=== PATIENT | female | born 1955 | race Caucasian/White ===

== ENCOUNTER 2020-01-30 12:54 | Outpatient (CLI) | payer OTHER, SELFPAY ==
[2020-01-30 13:22] LABS: Basophils Percent Auto 0.7 % (0.2-1.2); Eosinophils Absolute Auto 0.1 K/mm3 (0-0.3); Hematocrit 38.4 % (37.0-47.0); Hemoglobin 12.9 g/dL (12.0-15.0); Immature Granulocyte Absolute 0.04 K/mm3 (0.00-0.031); Immature Granulocyte Percent A 0.7 % (0-0.5); Lymphocytes Absolute Auto 1.63 K/mm3 (0.9-3.2); Lymphocytes Percent Auto 27.3 % (18.3-44.2); Mean Corpuscular HGB Conc 33.6 g/dl (32-36); Mean Corpuscular Hemoglobin 29.1 pg (26-34); Mean Corpuscular Volume 86.7 fl (80-100); Mean Platelet Volume 9.4 fl (7.4-10.4); Monocytes Absolute Auto 0.5 K/mm3 (0.1-0.6); Monocytes Percent Auto 8.7 % (2.6-8.5); Neutrophils Absolute Auto 3.6 K/mm3 (1.3-6.7); Neutrophils Percent Auto 60.6 % (45.5-73.1); Platelet Count Result 311 k/mm3 (150-375); Red Blood Count 4.43 M/mm3 (4.2-5.4); Red Cell Distribution Width 12.1 % (11.5-14.5)
[2020-01-30 13:42] LABS: Alanine Aminotransferase 30 U/L (4-35); Albumin Level 4.3 g/dL (3.5-5.1); Alkaline Phosphatase 84 U/L (38-126); Aspartate Amino Transferase 31 U/L (14-36); Bilirubin,Total 0.4 mg/dL (0.2-1.3); Blood Urea Nitrogen 11 mg/dL (7-17); Calcium 9.1 mg/dL (8.4-10.2); Carbon Dioxide 29 mmol/L (22-30); Chloride 105 mmol/L (98-107); Estimated Glomerular Filt Rate > 60; Glucose 96 mg/dL (65-105); Potassium 3.8 mmol/L (3.4-5.0); Sodium 140 mmol/L (137-145)
[2020-01-30 14:04] LABS: Free T4 Free Thyroxine 0.88 ng/mL (0.78-2.19)
[2020-01-30 14:12] LABS: Thyroid Stimulating Hormone 0.695 uIU/mL (0.465-4.680)
== END 2020-01-30 12:55 | disposition home or self-care (01) ==
PROVIDERS: PCP Internal Medicine; Visit Provider Internal Medicine
DX: E78.00 Pure hypercholesterolemia, unspecified (principal)
CPT/HCPCS: 36415; 80053; 82607; 83735; 84439; 84443; 85025

== ENCOUNTER 2020-04-11 13:45 | Outpatient (CLI) | payer OTHER, SELFPAY ==
--- NOTE | ~2020-04-11 | US_ITS ---
EXAMINATION: US soft tissue chest INDICATION: Patient with history of bilateral mastectomy presents for six-month follow-up for probabl y benign chest wall masses TECHNIQUE: High-resolution bilateral ultrasound of the chest wall is performed. COMPARISON: 07/19/2019, 01/31/2019, 01/20/2018 FINDINGS: Right chest wall: There is a stable 2 mm round hypoechoic circumscribed mass at the 5:00 location wit h no internal vascularity or posterior features. No suspicious cystic or solid mass is identified. Left chest wall: Previously described small hypoechoic masses measuring up to 3 mm in the right chest wall are stable or have resolved. No suspicious cystic or solid mass is identified. IMPRESSION: 1. No sonographic evidence of malignancy. Routine clinical follow-up is recommended. BI-RADS Category 2: Benign finding(s). Reviewed, dictated and finalized at location A. IMPRESSION: 1. No sonographic evidence of malignancy. Routine clinical follow-up is recomme nded. BI-RADS Category 2: Benign finding(s).
--- NOTE | ~2020-04-11 | DEXA_ITS ---
Bone Density Report Name: Gillian Smith Age: 65 Sex: Female Ethnicity: White Date of : 1955 Indication: postmenopausal; inflammatory bowel disease; cancer; hysterectomy; Referring Provider: GIO PARMAR Study: Bone densitometry was performed. Exam Date: April 11, 2020 Accession number: [id number] Bone Density: Region BMD T-score Z-score Classification AP Spine (L1-L4) 1.083 0.3 2.2 Normal Femoral Neck (Left) 0.750 -0.9 0.7 Normal Total Hip (Left) 0.937 0.0 1.3 Normal Total Hip Bilateral Avg 0.947 0.1 1.4 Normal Femoral Neck (Right) 0.723 -1.1 0.5 Osteopenia Total Hip (Right) 0.956 0.1 1.5 Normal World Health Organization criteria for BMD impression classify patients as: Normal (T-score at or above -1.0), Osteopenia (T-score between -1.0 and -2.5), or Osteoporosis (T-score at or below -2.5). 10-year Fracture Risk(1): Major Osteoporotic Fracture 8.3% Hip Fracture 0.7% Reported Risk Factors: [place] (), Neck BMD=0.723, BMI=29.9 (1) FRAX(R) Version 3.08. Fracture probability calculated for an untreated patient. Fracture probability may be lower if the patient has received treatment. Previous Exams: Region Exam Age BMD T-score BMD Change BMD Change Date g/cm2 vs Baseline vs Previous AP Spine(L1-L4) 04/11/2020 65 1.083 0.3 -0.227(-17.3%) 0.026(2.5%)* 12/06/2016 61 1.057 0.1 -0.253(-19.3%) 0.006(0.6%)# 08/16/2012 57 1.051 0.0 -0.259(-19.8%) -0.108(-9.3%)# 12/10/2009 54 1.159 1.0 -0.152(-11.6%) -0.053(-4.4%)* 10/05/2006 51 1.212 1.5 -0.098(-7.5%)* -0.098(-7.5%)* 12/22/2002 47 1.310 2.4 Total Hip(Left) 04/11/2020 65 0.937 0.0 -0.108(-10.4%) -0.019(-2.0%) 12/06/2016 61 0.957 0.1 -0.089(-8.5%)# 0.076(8.7%)# 08/16/2012 57 0.881 -0.5 -0.165(-15.8%) -0.075(-7.8%)# 12/10/2009 54 0.955 0.1 -0.090(-8.6%)* -0.057(-5.6%)* 10/05/2006 51 1.013 0.6 -0.033(-3.2%)* -0.033(-3.2%)* 12/22/2002 47 1.046 0.9 Total Hip(Right) 04/11/2020 65 0.956 0.1 -0.078(-7.5%)# -0.020(-2.0%) 12/06/2016 61 0.976 0.3 -0.058(-5.6%)# 0.006(0.6%)# 08/16/2012 57 0.970 0.2 -0.064(-6.2%)# -0.003(-0.3%)# 12/10/2009 54 0.973 0.3 -0.062(-6.0%)* -0.008(-0.8%) 10/05/2006 51 0.981 0.3 -0.053(-5.2%)* -0.053(-5.2%)* 12/22/2002 47 1.034 0.8 *Denotes significance at 95% confidence level, LSC for AP Spine = 0.022 g/cm2, LSC for Total Hip = 0.027 g/cm2 Clinical Information Provided by Patient:
== END 2020-04-11 13:46 | disposition home or self-care (01) ==
LOC: ANHIMG 13:47
PROVIDERS: PCP Internal Medicine; Visit Provider Obstetrics & Gynecology
DX: Z78.0 Asymptomatic menopausal state (principal); Z85.3 Personal history of malignant neoplasm of breast; M85.851 Other specified disorders of bone density and structure, right thigh
CPT/HCPCS: 76604; 77080

== ENCOUNTER 2020-07-25 07:14 | Outpatient (CLI) | payer OTHER, SELFPAY ==
[2020-07-25 07:45] LABS: Basophils Percent Auto 0.7 % (0.2-1.2); Eosinophils Absolute Auto 0.1 K/mm3 (0-0.3); Eosinophils Percent Auto 2.5 % (0-4.4); Hematocrit 38.3 % (37.0-47.0); Hemoglobin 12.9 g/dL (12.0-15.0); Immature Granulocyte Absolute 0.04 K/mm3 (0.00-0.031); Immature Granulocyte Percent A 0.7 % (0-0.5); Lymphocytes Absolute Auto 1.49 K/mm3 (0.9-3.2); Mean Corpuscular HGB Conc 33.7 g/dl (32-36); Mean Corpuscular Hemoglobin 29.3 pg (26-34); Mean Corpuscular Volume 86.8 fl (80-100); Mean Platelet Volume 9.3 fl (7.4-10.4); Monocytes Absolute Auto 0.5 K/mm3 (0.1-0.6); Monocytes Percent Auto 9.4 % (2.6-8.5); Neutrophils Absolute Auto 3.3 K/mm3 (1.3-6.7); Neutrophils Percent Auto 59.7 % (45.5-73.1); Platelet Count Result 267 k/mm3 (150-375); Red Blood Count 4.41 M/mm3 (4.2-5.4); Red Cell Distribution Width 12.3 % (11.5-14.5); White Blood Count 5.5 K/mm3 (4.5-10.0)
[2020-07-25 07:59] LABS: Alanine Aminotransferase 28 U/L (4-35); Alkaline Phosphatase 65 U/L (38-126); Anion Gap 7 mmol/L (8-16); Aspartate Amino Transferase 32 U/L (14-36); Bilirubin,Total 0.8 mg/dL (0.2-1.3); Blood Urea Nitrogen 11 mg/dL (7-17); Calcium 9.2 mg/dL (8.4-10.2); Carbon Dioxide 30 mmol/L (22-30); Chloride 102 mmol/L (98-107); Cholesterol 177 mg/dL (0-200); Estimated Glomerular Filt Rate > 60; Glucose 105 mg/dL (65-105); HDL Direct 36 mg/dL; Magnesium 2.2 mg/dL (1.6-2.3); Potassium 3.8 mmol/L (3.4-5.0); Sodium 139 mmol/L (137-145); Triglycerides 322 mg/dL (<150)
[2020-07-25 08:09] LABS: LDL Cholesterol Direct 100 mg/dL
[2020-07-25 09:28] LABS: Thyroid Stimulating Hormone 0.232 uIU/mL (0.465-4.680)
[2020-07-25 09:30] LABS: Free T4 Free Thyroxine 0.82 ng/mL (0.78-2.19)
== END 2020-07-25 07:15 | disposition home or self-care (01) ==
PROVIDERS: PCP Internal Medicine; Visit Provider Internal Medicine
DX: E78.00 Pure hypercholesterolemia, unspecified (principal); K21.9 Gastro-esophageal reflux disease without esophagitis
CPT/HCPCS: 36415; 80053; 80061; 82607; 83735; 84439; 84443; 85025

== ENCOUNTER 2020-09-01 00:17 | Outpatient (CLI) | payer OTHER, SELFPAY ==
[2020-09-01 20:45] LABS: SARS-CoV-2 RNA PCR Negative
== END 2020-09-01 00:18 | disposition home or self-care (01) ==
LOC: ANHCOVIDDT 00:17
PROVIDERS: PCP Internal Medicine; Visit Provider Internal Medicine Gastroenterology
DX: Z01.812 Encounter for preprocedural laboratory examination (principal); Z11.59 Encounter for screening for other viral diseases
CPT/HCPCS: 87635; C9803; U0003

== ENCOUNTER 2020-09-04 01:33 | Day surgery (SDC) | payer OTHER, SELFPAY ==
[2020-08-25 13:38] VITALS: BMI 27.6
[2020-09-04] MEDS: LACTATED RINGERS 1,000 ML 150 ML IV CONT (08:26)
[2020-09-04 08:31] VITALS: BP 145/66; PULSE 81; RESP 18; TEMP 36.5; O2SAT 98; BMI 28.6
--- NOTE | 2020-09-04 08:45 | WPDGICN ---
Assessment and Plan Assessment and plan (1) History of colon polyps: Code(s): Z86.010 - Personal history of colonic polyps Status: Acute Assessment and Plan: Patient has a distant history of colon polyps. Most recent exam was 5 years ago. Follow-up colonoscopy is been suggested. Plan is for surveillance colonoscopy at this time. Further recommendations will be given after endoscopy. GI Consult Note Consult date/time: 09/04/20 08:45 HPI: Gillian Smith is a 65 year old female seen in evaluation at the request of Dr. Juan Luis Chacon. patient has a history of colon polyps. Patient presents today for surveillance examination. She states her current weight appetite bowel movements are normal. She denies any abdominal pain. She has had no bleeding. Review of Systems Review of Systems: All systems reviewed & are unremarkable except as noted in HPI and below PMFSH Past Medical History Medical History (Updated 09/04/20 @ 08:49 by Ellis Owens MD) History of breast cancer in female Hyperlipidemia due to dietary fat intake Surgical History Surgical History (System 07/23/20 @ 17:19 by Marisabel Uribe) H/O: hysterectomy Status post bilateral mastectomy Family History Family History (System 07/23/20 @ 17:19 by Marisabel Uribe) Grandparent Diabetes mellitus Mother Family history of hypercholesterolemia Father Carcinoma of colon Sibling Malignant neoplasm of prostate Family history of malignant neoplasm of ovary Social History Social History (System 07/23/20 @ 17:19 by Marisabel Uribe) Smoking status: Never smoker Alcohol intake: never Living arrangements: with family Gender identity (if verbalized by the patient): Female Spiritual care concerns: No Meds Home Medications and Allergies Home Medications Medication Instructions Recorded Confirmed Type cetirizine 10 mg tablet 5 mg PO DAILY PRN 03/20/20 09/04/20 History cholecalciferol (vitamin D3) 50 50 mcg PO DAILY 03/20/20 09/04/20 History mcg (2,000 unit) capsule pantoprazole 40 mg tablet,delayed 40 mg PO QAM 03/20/20 09/04/20 History release simvastatin 40 mg tablet 40 mg PO DAILY 03/20/20 09/04/20 History Allergies Allergy/AdvReac Type Severity Reaction Status Date / Time clarithromycin Allergy Mild HIVES,RASH,DIFFICULTY Verified 09/04/20 08:17 BREATHING erythromycin base Allergy Mild Nausea and Verified 09/04/20 08:17 Vomiting lactose Allergy Mild STOMACH Verified 09/04/20 08:17 UPSETS Quinolones Allergy Mild HIVES,RASH Verified 09/04/20 08:17 Sulfa (Sulfonamide Allergy Mild HIVE, Verified 09/04/20 08:17 Antibiotics) DIFFICULTY BREATHING sulfamethoxazole Allergy Mild HIVE, Verified 09/04/20 08:17 DIFFICULTY BREATHING trimethoprim Allergy Mild HIVE, Verified 09/04/20 08:17 DIFFICULTY BREATHING amoxicillin Allergy Unknown Unknown Verified 09/04/20 08:17 ciprofloxacin Allergy Unknown Unknown Verified 09/04/20 08:17 codeine Allergy Unknown Unknown Verified 09/04/20 08:17 levofloxacin Allergy Unknown Unknown Verified 09/04/20 08:17 Penicillins Allergy Unknown Hives / Verified 09/04/20 08:17 Red Face IVP DYE Allergy Unknown Hives Uncoded 09/04/20 08:17 PAIN MEDS AdvReac Severe SEVERE Uncoded 09/04/20 08:17 NAUSEA AND VOMITING Vital Signs Vital Signs - 24 hr 09/04/20 08:31 Temperature 97.7 F Pulse Rate 81 Respiratory Rate 18 Blood Pressure 145/66 H Pulse Oximetry 98 Exam Narrative: Exam Narrative: Physical exam reveals patient to be alert. Vital signs stable. HEENT exam unremarkable. Lungs are clear to auscultation and percussion. Heart is without murmur or extra sounds. Abdominal exam bowel sounds are present soft nontender with no organomegaly. Digital external rectal exam is normal.
--- NOTE | 2020-09-04 09:10 | WPDANESEPPF ---
Anes - Initial Pre Proc Eval Procedure: Operation Date: 09/04/20 09:30 Proposed Procedures p Screening Colonoscopy - Ellis Owens MD Date/Time: 09/04/20 09:10 Surgeon: Ellis Owens MD Pre Op Diagnosis: neoplasm screening, hx colon polyps Patient Data Age: 65 Gender: F Height: 5 ft 4 in Weight: 75.8 kg Last Vital Signs Temp 97.7 F 09/04/20 08:31 Pulse 81 09/04/20 08:31 Resp 18 09/04/20 08:31 BP 145/66 H 09/04/20 08:31 Pulse Ox 98 09/04/20 08:31 Allergies Allergy/AdvReac Type Severity Reaction Status Date / Time clarithromycin Allergy Mild HIVES,RASH,DIFFICULTY Verified 09/04/20 08:17 BREATHING erythromycin base Allergy Mild Nausea and Verified 09/04/20 08:17 Vomiting lactose Allergy Mild STOMACH Verified 09/04/20 08:17 UPSETS Quinolones Allergy Mild HIVES,RASH Verified 09/04/20 08:17 Sulfa (Sulfonamide Allergy Mild HIVE, Verified 09/04/20 08:17 Antibiotics) DIFFICULTY BREATHING sulfamethoxazole Allergy Mild HIVE, Verified 09/04/20 08:17 DIFFICULTY BREATHING trimethoprim Allergy Mild HIVE, Verified 09/04/20 08:17 DIFFICULTY BREATHING amoxicillin Allergy Unknown Unknown Verified 09/04/20 08:17 ciprofloxacin Allergy Unknown Unknown Verified 09/04/20 08:17 codeine Allergy Unknown Unknown Verified 09/04/20 08:17 levofloxacin Allergy Unknown Unknown Verified 09/04/20 08:17 Penicillins Allergy Unknown Hives / Verified 09/04/20 08:17 Red Face IVP DYE Allergy Unknown Hives Uncoded 09/04/20 08:17 PAIN MEDS AdvReac Severe SEVERE Uncoded 09/04/20 08:17 NAUSEA AND VOMITING Home Medications Medication Instructions Recorded Confirmed Type cetirizine 10 mg tablet 5 mg PO DAILY PRN 03/20/20 09/04/20 History cholecalciferol (vitamin D3) 50 50 mcg PO DAILY 03/20/20 09/04/20 History mcg (2,000 unit) capsule pantoprazole 40 mg tablet,delayed 40 mg PO QAM 03/20/20 09/04/20 History release simvastatin 40 mg tablet 40 mg PO DAILY 03/20/20 09/04/20 History Patient hx anesthesia problems: none Family hx anesthesia problems: none [facility] Past Medical History Medical History (Updated 09/04/20 @ 08:49 by Ellis Owens MD) History of breast cancer in female Hyperlipidemia due to dietary fat intake Surgical History Surgical History (System 07/23/20 @ 17:19 by Marisabel Uribe) H/O: hysterectomy Status post bilateral mastectomy Family History Family History (System 07/23/20 @ 17:19 by Marisabel Uribe) Grandparent Diabetes mellitus Mother Family history of hypercholesterolemia Father Carcinoma of colon Sibling Malignant neoplasm of prostate Family history of malignant neoplasm of ovary Social History Social History (System 07/23/20 @ 17:19 by Marisabel Uribe) Smoking status: Never smoker Alcohol intake: never Living arrangements: with family Gender identity (if verbalized by the patient): Female Spiritual care concerns: No Anes - Eval Final PreProcedure Day of Procedure 09/04/20 09:10 Patient weight: normal Heart: regular rate and rhythm Lungs: clear to auscultation Airway: Mallampati scale class II Neurological: alert and oriented Last oral intake: >/= 8 hours ASA classification: III Emergent: no Anesthetic plan: proceed Anesthesia type and monitoring: general GIVS and standard monitoring Informed Consent: The patient's anesthetic plan and its attendant risks and benefits were discussed with the patient/family/POA. Questions were solicited and answers provided to the satisfaction of the patient/family/POA.
[2020-09-04 09:40] VITALS: BP 128/71; PULSE 83; RESP 15; O2SAT 97
[2020-09-04 09:50] VITALS: BP 117/60; PULSE 72; RESP 15; O2SAT 97
[2020-09-04 09:58] VITALS: BP 133/68; PULSE 69; RESP 15; O2SAT 100
== END 2020-09-04 10:29 | disposition home or self-care (01) ==
PROVIDERS: PCP Internal Medicine; Visit Provider Internal Medicine Gastroenterology
PROC: 0DJD8ZZ Inspection of Lower Intestinal Tract, Via Natural or Artificial Opening Endoscopic (ICD-10-PCS; CPT 45378; principal; 2020-09-04 09:30)
DX: Z12.11 Encounter for screening for malignant neoplasm of colon (principal); K63.5 Polyp of colon; K57.30 Diverticulosis of large intestine without perforation or abscess without bleeding; K64.8 Other hemorrhoids; E78.5 Hyperlipidemia, unspecified; Z85.3 Personal history of malignant neoplasm of breast
CPT/HCPCS: 45385; 88305; J2704; J7120

== ENCOUNTER 2021-01-20 08:51 | Outpatient (CLI) | payer OTHER, SELFPAY ==
[2021-01-20 09:28] LABS: Hematocrit 38.4 % (37.0-47.0); Mean Corpuscular HGB Conc 33.9 g/dl (32-36); Mean Corpuscular Hemoglobin 29.3 pg (26-34); Mean Corpuscular Volume 86.5 fl (80-100); Mean Platelet Volume 9.3 fl (7.4-10.4); Platelet Count Result 268 k/mm3 (150-375); Red Blood Count 4.44 M/mm3 (4.2-5.4); Red Cell Distribution Width 12.3 % (11.5-14.5); White Blood Count 5.1 K/mm3 (4.5-10.0)
[2021-01-20 09:41] LABS: Alanine Aminotransferase 28 U/L (4-35); Albumin Level 4.3 g/dL (3.5-5.1); Alkaline Phosphatase 60 U/L (38-126); Anion Gap 5 mmol/L (8-16); Aspartate Amino Transferase 32 U/L (14-36); Bilirubin,Total 0.6 mg/dL (0.2-1.3); Blood Urea Nitrogen 12 mg/dL (7-17); Calcium 9.2 mg/dL (8.4-10.2); Carbon Dioxide 31 mmol/L (22-30); Chloride 104 mmol/L (98-107); Cholesterol 179 mg/dL (0-200); Estimated Glomerular Filt Rate > 60; Glucose 99 mg/dL (65-105); HDL Direct 38 mg/dL; Sodium 140 mmol/L (137-145); Triglycerides 236 mg/dL (<150)
[2021-01-20 09:54] LABS: LDL Cholesterol Direct 97 mg/dL
[2021-01-20 10:12] LABS: Thyroid Stimulating Hormone 0.202 uIU/mL (0.465-4.680)
[2021-01-20 10:29] LABS: Free T4 Free Thyroxine 0.81 ng/mL (0.78-2.19)
== END 2021-01-20 08:52 | disposition home or self-care (01) ==
PROVIDERS: PCP Internal Medicine; Visit Provider Internal Medicine
DX: E78.00 Pure hypercholesterolemia, unspecified (principal)
CPT/HCPCS: 36415; 80053; 80061; 84439; 84443; 85027

== ENCOUNTER 2021-04-14 15:11 | Outpatient (CLI) | payer OTHER, SELFPAY ==
[2021-04-14 17:02] LABS: Vitamin D 25 Hydroxy 39.7 ng/mL
== END 2021-04-14 15:12 | disposition home or self-care (01) ==
PROVIDERS: PCP Internal Medicine; Visit Provider Obstetrics & Gynecology
DX: M85.80 Other specified disorders of bone density and structure, unspecified site (principal)
CPT/HCPCS: 36415; 82306

== ENCOUNTER 2021-04-15 14:50 | Outpatient (CLI) | payer OTHER, SELFPAY ==
--- NOTE | ~2021-04-15 | US_ITS ---
EXAMINATION: US soft tissue chest INDICATION: Acquired absence of the bilateral breasts and nipples TECHNIQUE: High-resolution bilateral ultrasound of the chest wall is performed. COMPARISON: 04/11/2020, 07/19/2019, 01/31/2019. FINDINGS: No suspicious cystic or solid mass is identified. Normal subcutaneous tissues are seen. Pre viously described bilateral chest wall masses have resolved. IMPRESSION: 1. No suspicious cystic or solid mass identified. Reviewed, dictated and finalized at location A.
== END 2021-04-15 14:51 | disposition home or self-care (01) ==
PROVIDERS: PCP Internal Medicine; Visit Provider Obstetrics & Gynecology
DX: Z90.13 Acquired absence of bilateral breasts and nipples (principal)
CPT/HCPCS: 76604

== ENCOUNTER 2021-05-10 19:05 | Emergency (ER) | payer OTHER, MEDICARE, SELFPAY ==
--- NOTE | ~2021-05-10 | CT_ITS ---
EXAMINATION: CT brain wo con DATE: 05/10/2021 22:02 INDICATION: Headache. Vomiting. TECHNIQUE: Computed tomography (CT) of the head was performed without intravenous contrast. The mA wa s adjusted according to patient size. Iterative reconstruction technique was employed. Exam dose: 90 8.00 mGy-cm total exam DLP. COMPARISON: None FINDINGS: No intracranial mass lesion or hemorrhage or cerebrovascular accident. No midline shift or mass effect. No subdural or epidural hematoma. Bilateral carotid siphon internal carotid artery calcifications are noted. There is nonspecific dimin ished attenuation cerebral white matter, likely due to chronic small vessel ischemic changes. Included paranasal sinuses and the mastoid air cells are normally developed and aerated. No fracture or bone destruction of the cranial vault. IMPRESSION: Cerebral atherosclerosis and chronic small vessel ischemic changes of the cerebral white matter No acute intracranial finding Reviewed, dictated and finalized at Location [facility]. Reviewed, dictated and finalized at location A.
[2021-05-10 19:15] VITALS: BP 184/87; PULSE 81; RESP 20; TEMP 35.9; O2SAT 99
[2021-05-10 19:50] LABS: Basophils Percent Auto 0.4 % (0.2-1.2); Eosinophils Percent Auto 0.3 % (0-4.4); Hematocrit 40.2 % (37.0-47.0); Hemoglobin 13.2 g/dL (12.0-15.0); Immature Granulocyte Absolute 0.06 K/mm3 (0.00-0.031); Immature Granulocyte Percent A 0.8 % (0-0.5); Lymphocytes Absolute Auto 0.88 K/mm3 (0.9-3.2); Lymphocytes Percent Auto 12.3 % (18.3-44.2); Mean Corpuscular HGB Conc 32.8 g/dl (32-36); Mean Corpuscular Hemoglobin 28.7 pg (26-34); Mean Corpuscular Volume 87.4 fl (80-100); Mean Platelet Volume 9.1 fl (7.4-10.4); Monocytes Absolute Auto 0.3 K/mm3 (0.1-0.6); Monocytes Percent Auto 4.6 % (2.6-8.5); Neutrophils Absolute Auto 5.8 K/mm3 (1.3-6.7); Neutrophils Percent Auto 81.6 % (45.5-73.1); Platelet Count Result 266 k/mm3 (150-375); Red Cell Distribution Width 12.5 % (11.5-14.5); White Blood Count 7.2 K/mm3 (4.5-10.0)
[2021-05-10 20:03] LABS: Alanine Aminotransferase 28 U/L (4-35); Albumin Level 4.3 g/dL (3.5-5.1); Alkaline Phosphatase 64 U/L (38-126); Anion Gap 7 mmol/L (8-16); Aspartate Amino Transferase 31 U/L (14-36); Bilirubin,Total 0.8 mg/dL (0.2-1.3); Blood Urea Nitrogen 8 mg/dL (7-17); Calcium 9.6 mg/dL (8.4-10.2); Carbon Dioxide 28 mmol/L (22-30); Chloride 106 mmol/L (98-107); Estimated CRCL calculation 64 ml/min; Estimated Glomerular Filt Rate > 60; Glucose 123 mg/dL (65-110); Lipase 73 U/L (23-300); Potassium 3.9 mmol/L (3.4-5.0); Sodium 141 mmol/L (137-145)
[2021-05-10 22:00] VITALS: BP 146/78; PULSE 78
[2021-05-10 22:00] LABS: Add Urine Microscopic? YES; Amorphous Sediment Urine Few; Appearance Urine Cloudy (Clear); Bacteria Urine Trace /hpf; Bilirubin Urine Negative (Negative); Blood Urine Negative (Negative); Color Urine Yellow (Yellow); Glucose Urine UA Negative (Negative); Ketones Urine Negative (Negative); Leukocyte Esterase Ur Negative LEU/UL (Negative); Mucus Urine Few /lpf; Nitrate Urine Negative (Negative); Protein Urine Negative (Negative); RBC Urine 0-2 /hpf (0-2); Specific Grav Ur 1.018 (1.001-1.035); Squamous Epithelial Cell Urine Few /hpf (Few); Urobilinogen Urine Negative mg/dL (<2.0); WBC Urine 0-3 /hpf
--- NOTE | 2021-05-10 22:02 | ED.NAVMDI ---
HPI - Nausea/Vomiting/Diarrhea General Chief complaint: Nausea/Vomiting/Diarrhea Stated complaint: n/v Time Seen by Provider: 05/10/21 21:06 Source: patient Mode of arrival: ambulatory Limitations: no limitations History of Present Illness HPI Narrative: 66-year-old female Somewhat troubled by chronic loose stools or diarrhea She complains of about 10 hours of severe and repeated nausea and vomiting Nothing that she would consider to be abdominal pain although she is little sore from the vomiting Diarrhea may be a little bit looser than usual but not substantially changed and nonbloody There is no fever She also complains of a headache and dizziness starting at about the same time She does not have any known sick contacts although she does report eating out last night and enjoying a corn dog Related Data Home Medications Medication Instructions Recorded Confirmed cetirizine 10 mg tablet 5 mg PO DAILY PRN 03/20/20 09/04/20 cholecalciferol (vitamin D3) 50 50 mcg PO DAILY 03/20/20 09/04/20 mcg (2,000 unit) capsule pantoprazole 40 mg tablet,delayed 40 mg PO QAM 03/20/20 09/04/20 release simvastatin 40 mg tablet 40 mg PO DAILY 03/20/20 09/04/20 calcium carbonate 390 mg calcium 390 mg PO DAILY 03/31/21 (1,000 mg) tablet multivitamin 1 tablet PO DAILY 03/31/21 vitamin E (dl, acetate) 45 mg (100 45 mg PO DAILY 03/31/21 unit) capsule Allergies Allergy/AdvReac Type Severity Reaction Status Date / Time clarithromycin Allergy Mild HIVES,RASH,DIFFICULTY Verified 05/10/21 19:19 BREATHING erythromycin base Allergy Mild Nausea and Verified 05/10/21 19:19 Vomiting lactose Allergy Mild STOMACH Verified 05/10/21 19:19 UPSETS Quinolones Allergy Mild HIVES,RASH Verified 05/10/21 19:19 Sulfa (Sulfonamide Allergy Mild HIVE, Verified 05/10/21 19:19 Antibiotics) DIFFICULTY BREATHING sulfamethoxazole Allergy Mild HIVE, Verified 05/10/21 19:19 DIFFICULTY BREATHING trimethoprim Allergy Mild HIVE, Verified 05/10/21 19:19 DIFFICULTY BREATHING amoxicillin Allergy Unknown Unknown Verified 05/10/21 19:19 ciprofloxacin Allergy Unknown Unknown Verified 05/10/21 19:19 codeine Allergy Unknown Unknown Verified 05/10/21 19:19 levofloxacin Allergy Unknown Unknown Verified 03/31/21 08:36 Penicillins Allergy Unknown Hives / Verified 03/31/21 08:36 Red Face IVP DYE Allergy Unknown Hives Uncoded 09/04/20 08:17 PAIN MEDS AdvReac Severe SEVERE Uncoded 09/04/20 08:17 NAUSEA AND VOMITING Review of Systems Review of Systems: All systems reviewed & are unremarkable except as noted in HPI and below Constitutional: Constitutional: Reports no additional constitutional complaints, Denies chills, Denies fever(s), Denies headache(s) and Reports weakness Eyes: Eyes: Reports no additional eye complaints and Denies change in vision ENT: Denies headache(s) and Denies sore throat Cardiovascular: Cardiovascular: Denies chest pain and Denies dyspnea Respiratory: Respiratory: Denies cough and Denies dyspnea Gastrointestinal: Gastrointestinal: Denies abdominal pain, Reports heartburn, Reports diarrhea, Reports nausea and Reports vomiting Genitourinary: Genitourinary: Denies urinary frequency and Denies dysuria Musculoskeletal: Musculoskeletal: Denies deformity, Denies arthralgias, Denies joint swelling and Denies numbness Integumentary/Breasts: Skin/Breast: Denies rash and Denies wounds Neurologic: Reports dizziness and Reports headache(s) Psychiatric: Psychiatric: Reports no additional psychiatric complaints Endocrine: Endocrine: Reports no additional endocrine complaints Hematologic/Lymphatic: Hematologic/Lymphatic: Reports no additional hematologic/lymphatic complaints Allergic/Immunologic: Allergic/Immunologic: Reports no additional allergic/immunologic complaints [facility] [place] Past Medical History Medical History (Updated 05/10/21 @ 22:07 by Ellis Joe MD) History of carla
[2021-05-10 22:05] VITALS: BP 138/79; PULSE 82
[2021-05-10] MEDS: LACTATED RINGERS 1,000 ML 999 ML IV CONT (22:30)
[2021-05-10] MEDS: PROCHLORPERAZINE EDISYLATE 10 MG/2 ML VIAL IV PUSH (22:30)
[2021-05-10 23:33] VITALS: BP 138/78; PULSE 78; RESP 18; O2SAT 99
== END 2021-05-10 23:34 | disposition home or self-care (01) ==
PROVIDERS: Emergency Provider Emergency Medicine; PCP Internal Medicine
DX: R11.2 Nausea with vomiting, unspecified (principal); Z85.3 Personal history of malignant neoplasm of breast; E78.5 Hyperlipidemia, unspecified
CPT/HCPCS: 36415; 70450; 80053; 81001; 83690; 85025; 96361; 96374; 99284; J0780; J7120

== ENCOUNTER 2021-07-28 10:51 | Outpatient (CLI) | payer OTHER, SELFPAY ==
[2021-07-28 11:23] LABS: Hematocrit 40.6 % (37.0-47.0); Hemoglobin 13.8 g/dL (12.0-15.0); Mean Corpuscular Hemoglobin 30.1 pg (26-34); Mean Corpuscular Volume 88.6 fl (80-100); Mean Platelet Volume 9.2 fl (7.4-10.4); Platelet Count Result 282 k/mm3 (150-375); Red Blood Count 4.58 M/mm3 (4.2-5.4); Red Cell Distribution Width 12.5 % (11.5-14.5); White Blood Count 5.8 K/mm3 (4.5-10.0)
[2021-07-28 11:38] LABS: Potassium 4.3 mmol/L (3.4-5.0)
[2021-07-28 11:49] LABS: LDL Cholesterol Direct 113 mg/dL
[2021-07-28 11:51] LABS: Free T4 Free Thyroxine 0.88 ng/mL (0.78-2.19)
[2021-07-28 11:54] LABS: Alanine Aminotransferase 29 U/L (4-35); Albumin Level 4.6 g/dL (3.5-5.1); Alkaline Phosphatase 63 U/L (38-126); Anion Gap 6 mmol/L (8-16); Aspartate Amino Transferase 34 U/L (14-36); Bilirubin,Total 0.8 mg/dL (0.2-1.3); Blood Urea Nitrogen 12 mg/dL (7-17); Calcium 9.7 mg/dL (8.4-10.2); Carbon Dioxide 30 mmol/L (22-30); Chloride 104 mmol/L (98-107); Cholesterol 203 mg/dL (0-200); Estimated Glomerular Filt Rate > 60; Glucose 100 mg/dL (65-110); HDL Direct 41 mg/dL; Sodium 140 mmol/L (137-145); Triglycerides 303 mg/dL (<150)
== END 2021-07-28 10:52 | disposition home or self-care (01) ==
LOC: ANHLAB 10:54
PROVIDERS: PCP Internal Medicine; Visit Provider Internal Medicine
DX: E78.00 Pure hypercholesterolemia, unspecified (principal)
CPT/HCPCS: 36415; 80053; 80061; 84439; 84443; 85027

== ENCOUNTER 2022-02-22 09:47 | Outpatient (CLI) | payer OTHER, SELFPAY ==
[2022-02-22 10:08] LABS: Basophils Percent Auto 0.6 % (0.2-1.2); Eosinophils Absolute Auto 0.1 K/mm3 (0-0.3); Eosinophils Percent Auto 2.2 % (0-4.4); Hematocrit 40.4 % (37.0-47.0); Hemoglobin 13.2 g/dL (12.0-15.0); Immature Granulocyte Absolute 0.02 K/mm3 (0.00-0.031); Immature Granulocyte Percent A 0.4 % (0-0.5); Lymphocytes Absolute Auto 1.16 K/mm3 (0.9-3.2); Lymphocytes Percent Auto 21.5 % (18.3-44.2); Mean Corpuscular HGB Conc 32.7 g/dl (32-36); Mean Corpuscular Hemoglobin 28.6 pg (26-34); Mean Corpuscular Volume 87.6 fl (80-100); Mean Platelet Volume 9.2 fl (7.4-10.4); Monocytes Absolute Auto 0.5 K/mm3 (0.1-0.6); Neutrophils Absolute Auto 3.5 K/mm3 (1.3-6.7); Neutrophils Percent Auto 65.3 % (45.5-73.1); Platelet Count Result 258 k/mm3 (150-375); Red Blood Count 4.61 M/mm3 (4.2-5.4); Red Cell Distribution Width 12.5 % (11.5-14.5); White Blood Count 5.4 K/mm3 (4.5-10.0)
[2022-02-22 10:22] LABS: Alanine Aminotransferase 35 U/L (6-35); Albumin Level 4.4 g/dL (3.5-5.1); Alkaline Phosphatase 65 U/L (38-126); Anion Gap 5 mmol/L (8-16); Aspartate Amino Transferase 37 U/L (14-36); Bilirubin,Total 0.7 mg/dL (0.2-1.3); Blood Urea Nitrogen 13 mg/dL (7-17); Calcium 9.1 mg/dL (8.4-10.2); Carbon Dioxide 29 mmol/L (22-30); Chloride 102 mmol/L (98-107); Cholesterol 224 mg/dL (0-200); Estimated Glomerular Filt Rate > 60; Glucose 95 mg/dL (65-110); HDL Direct 41 mg/dL; Magnesium 2.2 mg/dL (1.6-2.3); Potassium 4.2 mmol/L (3.4-5.0); Sodium 136 mmol/L (137-145); Triglycerides 321 mg/dL (<150)
[2022-02-22 10:33] LABS: LDL Cholesterol Direct 115 mg/dL
[2022-02-22 10:51] LABS: Thyroid Stimulating Hormone 0.019 uIU/mL (0.465-4.680)
[2022-02-22 10:58] LABS: Free T4 Free Thyroxine 0.95 ng/mL (0.78-2.19); Vitamin D 25 Hydroxy 40.9 ng/mL
== END 2022-02-22 09:48 | disposition home or self-care (01) ==
LOC: ANHLAB 09:49
PROVIDERS: PCP Internal Medicine; Visit Provider Internal Medicine
DX: K21.9 Gastro-esophageal reflux disease without esophagitis (principal); E78.00 Pure hypercholesterolemia, unspecified; E55.9 Vitamin D deficiency, unspecified
CPT/HCPCS: 36415; 80053; 80061; 82306; 82607; 83735; 84439; 84443; 85025

== ENCOUNTER 2022-03-09 13:54 | Observation (INO) | payer OTHER, SELFPAY ==
[2022-03-09] VITALS (8 sets, daily range): BP systolic 118–175; BP diastolic 56–86; PULSE 64–82; RESP 16; TEMP 36.2–36.7; O2SAT 93–100; BMI 29.0
--- NOTE | ~2022-03-09 | CT_ITS ---
EXAMINATION: CT brain wo con DATE: 03/09/2022 15:54 INDICATION: dizziness . TECHNIQUE: Computed tomography (CT) of the head was performed without intravenous contrast. The mA wa s adjusted according to patient size. Iterative reconstruction technique was employed. The dose-lengt h product was 605.33 mGy-cm. COMPARISON: 05/10/2021. FINDINGS: No acute intracranial hemorrhage or extra-axial fluid collection. No hydrocephalus, mass, or herniation. No acute ischemic infarct. Unremarkable dural venous sinus attenuation. No acute osseous abnormality. The aerated spaces are clear. Mild atrophy and chronic white matter change. Atherosclerotic arterial calcification. IMPRESSION: No acute intracranial process. Reviewed, dictated and finalized at location K.
[2022-03-09 14:31] LABS: Basophils Percent Auto 0.5 % (0.2-1.2); Eosinophils Percent Auto 0.4 % (0-4.4); Hematocrit 41.6 % (37.0-47.0); Hemoglobin 14.1 g/dL (12.0-15.0); Immature Granulocyte Absolute 0.04 K/mm3 (0.00-0.031); Immature Granulocyte Percent A 0.5 % (0-0.5); Lymphocytes Absolute Auto 1.19 K/mm3 (0.9-3.2); Lymphocytes Percent Auto 15.4 % (18.3-44.2); Mean Corpuscular HGB Conc 33.9 g/dl (32-36); Mean Corpuscular Hemoglobin 29.3 pg (26-34); Mean Corpuscular Volume 86.3 fl (80-100); Monocytes Absolute Auto 0.5 K/mm3 (0.1-0.6); Monocytes Percent Auto 6.2 % (2.6-8.5); Platelet Count Result 291 k/mm3 (150-375); Red Blood Count 4.82 M/mm3 (4.2-5.4); Red Cell Distribution Width 12.6 % (11.5-14.5); White Blood Count 7.7 K/mm3 (4.5-10.0)
[2022-03-09 14:43] LABS: Alanine Aminotransferase 32 U/L (6-35); Albumin Level 4.8 g/dL (3.5-5.1); Alkaline Phosphatase 65 U/L (38-126); Anion Gap 9 mmol/L (8-16); Aspartate Amino Transferase 35 U/L (14-36); Blood Urea Nitrogen 11 mg/dL (7-17); Carbon Dioxide 27 mmol/L (22-30); Chloride 102 mmol/L (98-107); Estimated CRCL calculation 64 ml/min; Estimated Glomerular Filt Rate > 60; Glucose 107 mg/dL (65-110); Lipase 81 U/L (23-300); Sodium 138 mmol/L (137-145)
--- NOTE | 2022-03-09 14:55 | ED.DIZZY ---
HPI - Dizziness General Chief Complaint: Dizziness Stated Complaint: dizzy, h/a, n/v Time Seen by Provider: 03/09/22 14:55 History of Present Illness HPI Narrative: Patient is a 67-year-old female with a history of hyperlipidemia presenting to the emergency department for evaluation of dizziness, nausea and vomiting. Patient reports feeling unwell with onset of symptoms yesterday afternoon around 2 PM. Patient states that she has had a headache with sinus congestion over the past week, with worsening headache pain yesterday. Patient reports her congestion has been chronic and refractory to treatment with oral [id number] medication such as Zyrtec and Mucinex. Patient states that she began to have worsening headache with congestion and dizziness yesterday. She reports she began to have numerous episodes of nonbloody, nonbilious emesis at 2 PM yesterday afternoon. Patient called her primary care provider who prescribed her ODT Zofran which did not resolve her nausea. Patient states she has been unable to tolerate oral intake since that time. She reports dizziness with any head movement that resolves at rest. She denies difficulty with speech, extremity weakness or numbness. She denies vision changes. She denies neck pain. She denies any thunderclap sensation to the headache. Patient reports she has not been able to ambulate secondary to the dizziness. She reports ear fullness bilaterally but denies any focal ear pain or drainage from the ears. Related Data Home Medications Medication Instructions Recorded Confirmed cetirizine 10 mg tablet (Zyrtec) 5 mg PO DAILY PRN Allergy Symptoms 03/20/20 09/04/20 cholecalciferol (vitamin D3) 50 50 mcg PO DAILY 03/20/20 09/04/20 mcg (2,000 unit) capsule simvastatin 40 mg tablet 40 mg PO DAILY 03/20/20 09/04/20 calcium carbonate 390 mg calcium 390 mg PO DAILY 03/31/21 (1,000 mg) tablet multivitamin (Daily Multi-Vitamin 1 tablet PO DAILY 03/31/21 tablet) vitamin E (dl, acetate) 45 mg (100 45 mg PO DAILY 03/31/21 unit) capsule Allergies Allergy/AdvReac Type Severity Reaction Status Date / Time clarithromycin Allergy Mild HIVES,RASH,DIFFICULTY Verified 05/10/21 19:19 BREATHING erythromycin base Allergy Mild Nausea and Verified 05/10/21 19:19 Vomiting lactose Allergy Mild STOMACH Verified 05/10/21 19:19 UPSETS Quinolones Allergy Mild HIVES,RASH Verified 05/10/21 19:19 Sulfa (Sulfonamide Allergy Mild HIVE, Verified 05/10/21 19:19 Antibiotics) DIFFICULTY BREATHING sulfamethoxazole Allergy Mild HIVE, Verified 05/10/21 19:19 DIFFICULTY BREATHING trimethoprim Allergy Mild HIVE, Verified 05/10/21 19:19 DIFFICULTY BREATHING amoxicillin Allergy Unknown Unknown Verified 05/10/21 19:19 ciprofloxacin Allergy Unknown Unknown Verified 05/10/21 19:19 codeine Allergy Unknown Unknown Verified 05/10/21 19:19 levofloxacin Allergy Unknown Unknown Verified 03/31/21 08:36 Penicillins Allergy Unknown Hives / Verified 03/31/21 08:36 Red Face IVP DYE Allergy Unknown Hives Uncoded 09/04/20 08:17 PAIN MEDS AdvReac Severe SEVERE Uncoded 09/04/20 08:17 NAUSEA AND VOMITING Review of Systems Review of Systems: CONSTITUTIONAL: Denies fever, chills, or sweats. EYES: Denies visual changes, redness, or discharge. ENT: Denies rhinorrhea, congestion, sore throat, or otalgia. CARDIOVASCULAR: Denies chest pain, palpitations, or edema. RESPIRATORY: Denies cough or dyspnea. GASTROINTESTINAL: Denies abdominal pain, reports nausea and vomiting GENITOURINARY: Denies dysuria or hematuria. SKIN: Denies rash or itching. MUSCULOSKELETAL: Denies back pain, joint pain, or myalgia. NEUROLOGIC: Reports headache without focal weakness or numbness, reports dizziness Patient is PMFSH Past Medical History Medical History History of breast cancer in female History of ovarian cancer History of squamous cell carc
[2022-03-09] MEDS: ONDANSETRON INJ 4 MG/2 ML VIAL IV PUSH (15:58)
[2022-03-09] MEDS: LORazepam INJ (*CRX) 2 MG/ML VIAL 0.5 MG IV PUSH (15:59)
[2022-03-09] MEDS: SODIUM CHLORIDE 0.9% IV 1,000 ML 999 ML IV CONT (15:59)
[2022-03-09] MEDS: MECLIZINE HCL 25 MG TABLET PO (15:59)
--- NOTE | 2022-03-09 16:19 | PC.NURSE ---
02 applied at 2 l NC due to 02 sat of 86% on room air.
[2022-03-09 17:28] LABS: Appearance Urine Clear (Clear); Bilirubin Urine Negative (Negative); Blood Urine Negative (Negative); Color Urine Yellow (Yellow); Glucose Urine UA Negative (Negative); Ketones Urine 2+ mg/dL (Negative); Leukocyte Esterase Ur Trace LEU/UL (Negative); Nitrate Urine Negative (Negative); Protein Urine Trace mg/dL (Negative); Urobilinogen Urine 0.2 mg/dL (<2.0)
[2022-03-09 17:32] LABS: Mucus Urine Rare /lpf; RBC Urine 0-2 /hpf (0-2); Squamous Epithelial Cell Urine Occasional /hpf (Few)
[2022-03-09 17:51] LABS: Add Urine Microscopic? YES
[2022-03-09] MEDS: diphenhydrAMINE HCl INJ 50 MG/ML VIAL 25 MG IV PUSH (19:57)
[2022-03-09] MEDS: METOCLOPRAMIDE HCL INJ 10 MG/2 ML VIAL IV PUSH (19:57)
--- NOTE | 2022-03-09 20:27 | PM.IMHP ---
H&P: HPI History of Present Illness Date/Time: 03/09/22 20:27 Chief Complaint: Dizziness, nausea and vomiting Narrative: 67-year-old female with past medical history of bilateral breast cancer, uterine cancer, partial thyroidectomy, irritable bowel syndrome, GERD and frequent sinus congestion who presented to the ER with dizziness and nausea and vomiting since Tuesday. The patient reports that she started to feel bad on Tuesday with a frontal and maxillary headache. She reports the pain in her head is worse with palpation over forehead and midface. She is still flushed but denies having any fevers. 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 She then began having dizziness with sitting up and position changes. Her dizziness was accompanied by severe nausea with dry heaves. She denies any recent diarrhea but does have a history of irritable bowel syndrome. She denies any recent ill contacts. She has also noticed some increased pressure in her left ear. She reports that her headache is moderate to severe in intensity in his pressure-like in nature. She has been taking Mucinex, Zyrtec, Flonase and [id number] Sudafed without relief in her symptoms. When she arrived to the ER the patient was noted to have bilateral cerumen impaction and her ears were flushed. At the time of my evaluation she still had cerumen impaction on the left side and I proceeded to irrigate the patient is here with peroxide and water with ventral removal of this impaction. On evaluation of the patient's years she did have retracted eardrum on the right and bulging eardrum on the left. She received Decadron, Reglan, Zofran, Benadryl and meclizine in the ER with only minimal improvement in her symptoms. I did do an osteopathic manipulation of the patient's E station tubes with significant improvement in her dizziness. Patient also reports chronic stress urinary incontinence. She denies any dysuria, hematuria or changes in urinary frequency. HPI was obtained from review of past medical records, ER records/physician report and patient report. Review of Systems Review of Systems: 12 systems were reviewed with pertinent positives and negatives per HPI. Except as documented in the HPI, all other systems were reviewed and are negative. [facility] Past Medical History Medical History (Updated 03/09/22 @ 22:44 by Alie Gardner DO) GERD (gastroesophageal reflux disease) History of bilateral breast cancer (~2003) Tubular History of squamous cell carcinoma History of uterine cancer (~2007) Hyperlipidemia due to dietary fat intake Irritable bowel syndrome Osteopenia Personal history of melanoma in-situ (~2009) Left face Vitamin D deficiency Surgical History Surgical History (Updated 03/09/22 @ 22:38 by Alie Gardner DO) History of colonoscopy with polypectomy History of endometrial ablation X2 History of partial thyroidectomy Due to benign cyst of the left thyroid lobe History of tonsillectomy and adenoidectomy History of total hysterectomy with bilateral salpingo-oophorectomy (BSO) (~2007) Due to uterine cancer Status post bilateral mastectomy Family History Family History Grandparent Diabetes mellitus Mother , At age 85 Hyperlipidemia Father , At age 75 Lung cancer Sibling Malignant neoplasm of prostate Family history of malignant neoplasm of ovary Social History Social History (Updated 03/09/22 @ 23:00 by Alie Gardner DO) Social History: She lives home with her of 41 years. 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 She has 2 sons who are healthy. She is a lifelong nonsmoker and does not drink alcohol. Code status: Full code Surrogate decision maker: Smoking status: Never smoker Alcohol intake: never Gender identity (if
[2022-03-09 22:25] LABS: SARS-CoV-2 RNA PCR Negative
[2022-03-09] MEDS: SODIUM CHLORIDE 0.9% IV 1,000 ML 125 ML IV CONT (22:52)
--- NOTE | 2022-03-09 23:02 | ADMGEN ---
This patient, Gillian Smith, was admitted to 3 Med Surg Room 326-01. Patient/family oriented to hospital policies and general routines including ID bracelet, bed and alarms, visiting hours, pain management, procedures, bathroom and other care routines, personal items, smoking policy, room service/diet, and visiting hours. Information on how to activate the Rapid Response Team has been discussed. Patient/Family are encouraged to report perceived risks to care and to ask questions if they do not understand what they are told or what they should do.
[2022-03-10] VITALS: PULSE 68
[2022-03-10] MEDS: FLUTICASONE PROPIONATE 0.05% NA SPR 16 GM BTL (*BKC) 1 SPRAY NASAL ×2 (00:24→08:29)
[2022-03-10 04:00] VITALS: PULSE 64
[2022-03-10 05:25] VITALS: BP 121/64; PULSE 67; RESP 16; TEMP 36.3; O2SAT 98
[2022-03-10 06:07] LABS: Hemoglobin 12.7 g/dL (12.0-15.0); Mean Corpuscular HGB Conc 33.4 g/dl (32-36); Mean Corpuscular Volume 86.8 fl (80-100); Mean Platelet Volume 9.1 fl (7.4-10.4); Platelet Count Result 269 k/mm3 (150-375); Red Blood Count 4.38 M/mm3 (4.2-5.4); Red Cell Distribution Width 12.5 % (11.5-14.5); White Blood Count 8.9 K/mm3 (4.5-10.0)
[2022-03-10 06:32] LABS: Anion Gap 6 mmol/L (8-16); Blood Urea Nitrogen 11 mg/dL (7-17); Calcium 8.5 mg/dL (8.4-10.2); Carbon Dioxide 23 mmol/L (22-30); Chloride 109 mmol/L (98-107); Estimated CRCL calculation 65 ml/min; Estimated Glomerular Filt Rate > 60; Glucose 123 mg/dL (65-110); Potassium 3.8 mmol/L (3.4-5.0); Sodium 138 mmol/L (137-145)
[2022-03-10] MEDS: SODIUM CHLORIDE 0.9% IV 1,000 ML 125 ML IV CONT (07:45)
[2022-03-10 08:00] VITALS: PULSE 67; RESP 16; O2SAT 98
[2022-03-10] MEDS: SIMVASTATIN 20 MG TABLET 40 MG PO (08:29)
[2022-03-10] MEDS: PANTOPRAZOLE 40 MG TABLET PO (08:29)
[2022-03-10] MEDS: PSEUDOEPHEDRINE HCL 30 MG TABLET 60 MG PO (10:08)
[2022-03-10] MEDS: ACETAMINOPHEN 325 MG TABLET 650 MG PO (10:09)
[2022-03-10] MEDS: SODIUM CHLORIDE 0.9% IV 1,000 ML 60 ML IV CONT (10:40)
[2022-03-10] MEDS: cefTRIAXone 2 GM in SODIUM CHLORIDE 0.9% IV 100 ML 200 ML IVPB (10:40)
[2022-03-10 14:00] VITALS: BP 119/53; PULSE 80; RESP 16; TEMP 36.9; O2SAT 96
[2022-03-10] MEDS: IBUPROFEN IV 800 MG/200 ML 800 MG/200 ML BAG 500 MG IVPB (14:09)
--- NOTE | 2022-03-10 16:48 | PM.DS ---
DS: Admitting Diagnosis Discharge Date 03/10/22 Admitting Diagnosis Dizziness, nausea and vomiting DS: Discharge Diagnosis Discharge Diagnosis (1) Vertigo: Code(s): R42 - Dizziness and giddiness Status: Acute (2) Acute left otitis media: Code(s): H66.92 - Otitis media, unspecified, left ear Status: Acute (3) Acute sinusitis: Code(s): J01.90 - Acute sinusitis, unspecified Status: Acute (4) Acute dehydration: Code(s): E86.0 - Dehydration Status: Acute (5) Bilateral impacted cerumen: Code(s): H61.23 - Impacted cerumen, bilateral Status: Acute DS: Summary Hospital Course Reason for hospitalization: 67yo female here for dizziness, nausea and vomiting. Please see H&P for details. Hospital Course: 67yo female with nausea, vomiting and dizziness. She was found to have bilateral cerumen and ears were flushed with good results. She was found then to have retracted eardrum on the right and bulging eardrum on the left. She had a UA with trace LE and 7-9WBC. UCx pending. She was started on abx for otitis media and possible UTI. Possibly sinusitis clinically but nothing obvious by CT. She has allergies to PCN but tolerated Rocephin. The Yajaira maneuver was performed without improvement in her symptoms. She was started on IV fluids. She worked with [employer]. She feels much better but still with mild dizziness. She did have ketones in the urine. Nausea resolved and diet started and advanced as she tolerated. She is eating normally now. COVID was negative. CT head showing no acute intracranial process. She was walking in halls and able to do steps. She feels ready for discharge. Status at Discharge Cognitive/behavioral status at discharge: Stable Time Spent with Patient Time attestation: Total time spent providing and/or coordinating discharge services: 32 minutes Time spent: Greater than 30 minutes Exam Narrative: AF 98.4 119/53 80 16 96% ra Gen - NARD Chest - CTA bilaterally, nml RR CV - RRR S1/S2 Abd - Soft, NT/ND, Positive BS Ext - No pedal edema Psych - Nml mood and affect Skin - Warm and dry DS: Data Data Completed and Pending Labs on day of discharge: Labs from last 24 hours 03/10/22 03/10/22 03/09/22 05:55 05:55 21:42 WBC 8.9 RBC 4.38 Hgb 12.7 Hct 38.0 MCV 86.8 MCH 29.0 MCHC 33.4 RDW 12.5 Plt Count 269 MPV 9.1 Sodium 138 Potassium 3.8 Chloride 109 H Carbon Dioxide 23 Anion Gap 6 L BUN 11 Creatinine 0.70 Estim Creat Clear Calc 65 Estimated GFR > 60 Glucose 123 H Calcium 8.5 Urine Color Urine Appearance Urine pH Ur Specific [place] Urine Protein Urine Glucose (UA) Urine Ketones Ur Blood (Man) Urine Nitrate Urine Bilirubin Urine Urobilinogen Leukocyte Esterase Rfl Urine RBC Urine WBC Ur Squamous Epith Cells Urine Mucus SARS-CoV-2 RNA (RT-PCR) Negative 03/09/22 17:21 WBC RBC Hgb Hct MCV MCH MCHC RDW Plt Count MPV Sodium Potassium Chloride Carbon Dioxide Anion Gap BUN Creatinine Estim Creat Clear Calc Estimated GFR Glucose Calcium Urine Color Yellow Urine Appearance Clear Urine pH 8.0 Ur Specific [place] 1.020 Urine Protein Trace Urine Glucose (UA) Negative Urine Ketones 2+ H Ur Blood (Man) Negative Urine Nitrate Negative Urine Bilirubin Negative Urine Urobilinogen 0.2 Leukocyte Esterase Rfl Trace H Urine RBC 0-2 Urine WBC 7-9 H Ur Squamous Epith Cells Occasional Urine Mucus Rare SARS-CoV-2 RNA (RT-PCR) Discharge Plan Discharge Attending physician on discharge: Gregg Monk Discharging Clinician: Gregg Monk Anticipated Discharge Date/Time: 03/10/22 17:19 Patient Disposition: Home, Self-Care Activity: as tolerated Diet: regular Discharge Instructions: Please avoid large gathering, wear face coverin
--- NOTE | 2022-03-11 06:42 | PC.NURSE ---
Urine cx shows mixed genital alexei. Dr. Lacho galan.
== END 2022-03-10 18:35 | disposition home or self-care (01) ==
LOC: ANHED 20:25 → ANH3MEDSUR 22:18
PROVIDERS: Emergency Medicine; Admitting Provider Internal Medicine; Emergency Provider Emergency Medicine; PCP Internal Medicine; Visit Provider Internal Medicine
DX: R42 Dizziness and giddiness (principal); R51.9 Headache, unspecified; H66.92 Otitis media, unspecified, left ear; J01.90 Acute sinusitis, unspecified; E86.0 Dehydration; H61.23 Impacted cerumen, bilateral; E78.5 Hyperlipidemia, unspecified; Z85.3 Personal history of malignant neoplasm of breast; Z85.43 Personal history of malignant neoplasm of ovary; Z85.820 Personal history of malignant melanoma of skin; K21.9 Gastro-esophageal reflux disease without esophagitis; Z20.822 Contact with and (suspected) exposure to COVID-19
CPT/HCPCS: 36415; 70450; 80048; 80053; 81001; 83690; 85025; 85027; 87086; 87088; 96361; 96365; 96367; 96374; 96375; 97161; 99285; A9270; C9803; G0378; J0131; J0696; J1100; J1200; J1741; J2060; J2405; J2765; J7030; U0003; U0005

== ENCOUNTER 2022-03-17 14:23 | Outpatient (RCR) | payer OTHER, SELFPAY ==
--- NOTE | 2022-03-17 15:26 | PTOPEVAL ---
PHYSICAL THERAPY EVALUATION AND PLAN OF CARE 03-17-22 Thank you for referring Gillian Smith to [facility].? Her symptoms are resolving and education was completed today. She is to call if she has any further questions or additional treatment is needed. Her treatment plan is for? 0-2 x/week for 4 weeks, depending upon the severity of her symptoms. Please review, sign, date and return this plan of care JAMES. I agree with and certify that the following plan of care is medically necessary. Referring Physician Date Attending Provider: Stewart Miller MD Past Medical History Source of Past Medical History Recalled from Previous Visit, Confirmed with Patient/Family Neurological History Hx Migraine Yes Cardiovascular History Hx Hypercholesterolemia Yes Respiratory History Hx Asthma Yes Gastrointestinal History Hx Colitis Yes Hx Diverticulitis Yes Hx Hemorrhoids Yes Hx Irritable Bowel Yes Genitourinary History Hx Urinary Tract Infection Yes Musculoskeletal History Hx Arthritis Yes Hx Other Musculoskeletal Disorders Yes: neck pain- bulging disc C5; grinding teeth-have mouth piece Hematological History Hx Anemia Yes Hx Blood Transfusions Yes Endocrine History Hx Thyroidectomy Yes: left lobe removed r/t cyst wrapped around it HEENT History Hx Tonsillectomy Yes Hx Deviated Septum Yes Integumentary History Hx Skin Disorders No Significant History Psychosocial History Hx Psychiatric Disorders No Significant History Pain History History of Any Previous or Ongoing No Significant History Instance of Pain Anesthesia History Hx Post-Op Nausea/Vomiting Yes Other History Hx Cancer Yes Hx Chemotherapy Yes: oral chemo for breast cancer Evaluation Information Diagnosis dizziness Onset March 08, 2022 Pain Assessment Self Report Self Report Pain Level 0 Pain Score Pain Score 0: Self Report Vestibular Evaluation Past Vestibular History Cervical Pain,Infection,Sinus/ Allergy Issues Medical History Comments migraines; 1 week prior to this onset--severe sinus issues and headaches; use Flonase daily, teeth grinding/ TMJ issues/pain; took last meclazine and predisone yesterday; Other Symptoms Comments is feeling much better than
--- NOTE | 2022-04-26 11:55 | PCPTNOTE ---
PHYSICAL THERAPY DISCHARGE REPORT 7-25-22 Attending Provider: Stewart Miller MD Patient:Gillian Smith Date of :1955 Mrs. Smith has not returned for any further treatments since the initial evaluation on 03/17/2022, therefore she will be discharged at this time. The goals were not assessed. Thank you for referring this patient to [facility]. Please review, sign, date and return this discharge summary JAMES. I have been updated about the patient's current status and I agree with discharge from the above service at this time. Referring Physician Date
== END 2022-04-27 08:32 | disposition home or self-care (01) ==
LOC: ANHPT 14:23
PROVIDERS: PCP Internal Medicine; Visit Provider Otolaryngology
DX: H81.10 Benign paroxysmal vertigo, unspecified ear (principal)
CPT/HCPCS: 97161

== ENCOUNTER 2022-05-20 15:27 | Outpatient (CLI) | payer OTHER, SELFPAY ==
--- NOTE | ~2022-05-20 | US_ITS ---
US soft tissue chest DATE: 05/20/2022 15:56 INDICATION: Status post bilateral mastectomies; history of breast cancer TECHNIQUE: Real-time imaging of right and left chest wall COMPARISON: 04/15/2021 ultrasound of the chest FINDINGS: No suspicious mass or shadowing or other suspicious finding of the of tissues of the chest wall is noted. IMPRESSION: Status post bilateral mastectomy; no abnormal chest wall mass or shadowing is evident Reviewed, dictated and finalized at Location A. Reviewed, dictated and finalized at location A. IMPRESSION: Status post bilateral mastectomy; no abnormal chest wall mass or sh adowing is evident
== END 2022-05-20 15:28 | disposition home or self-care (01) ==
PROVIDERS: PCP Internal Medicine; Visit Provider Obstetrics & Gynecology
DX: Z90.13 Acquired absence of bilateral breasts and nipples (principal); Z85.3 Personal history of malignant neoplasm of breast
CPT/HCPCS: 76604

== ENCOUNTER 2022-08-05 09:44 | Outpatient (CLI) | payer OTHER, SELFPAY ==
[2022-08-05 10:19] LABS: Hematocrit 39.7 % (37.0-47.0); Hemoglobin 13.3 g/dL (12.0-15.0); Mean Corpuscular HGB Conc 33.5 g/dl (32-36); Mean Corpuscular Hemoglobin 28.9 pg (26-34); Mean Corpuscular Volume 86.3 fl (80-100); Mean Platelet Volume 9.3 fl (7.4-10.4); Platelet Count Result 290 k/mm3 (150-375); Red Cell Distribution Width 12.2 % (11.5-14.5); White Blood Count 5.1 K/mm3 (4.5-10.0)
[2022-08-05 11:22] LABS: Free T4 Free Thyroxine 0.91 ng/mL (0.78-2.19)
[2022-08-05 16:57] LABS: Alanine Aminotransferase 26 U/L (6-35); Albumin Level 4.3 g/dL (3.5-5.1); Alkaline Phosphatase 71 U/L (38-126); Anion Gap 7 mmol/L (8-16); Aspartate Amino Transferase 32 U/L (14-36); Bilirubin,Total 0.7 mg/dL (0.2-1.3); Blood Urea Nitrogen 16 mg/dL (7-17); Calcium 9.4 mg/dL (8.4-10.2); Carbon Dioxide 29 mmol/L (22-30); Chloride 102 mmol/L (98-107); Cholesterol 199 mg/dL (0-200); Estimated Glomerular Filt Rate > 60; Glucose 96 mg/dL (65-110); HDL Direct 36 mg/dL; Potassium 4.4 mmol/L (3.4-5.0); Sodium 138 mmol/L (137-145); Triglycerides 264 mg/dL (<150)
[2022-08-05 17:10] LABS: LDL Cholesterol Direct 111 mg/dL
[2022-08-05 17:28] LABS: Thyroid Stimulating Hormone 0.097 uIU/mL (0.465-4.680)
== END 2022-08-05 09:45 | disposition home or self-care (01) ==
PROVIDERS: PCP Internal Medicine; Visit Provider Internal Medicine
DX: E78.00 Pure hypercholesterolemia, unspecified (principal); K21.9 Gastro-esophageal reflux disease without esophagitis
CPT/HCPCS: 36415; 80053; 80061; 82607; 84439; 84443; 85027

== ENCOUNTER 2022-08-31 16:42 | Outpatient (CLI) | payer OTHER, SELFPAY ==
--- NOTE | ~2022-08-31 | DEXA_ITS ---
Bone Density Report Name: BELKIS HOLT Age: 67 Sex: Female Ethnicity: White Date of : 1955 Indication: postmenopausal; screening for osteoporosis; inflammatory bowel disease; cancer; asthma or emphysema; hysterectomy; Referring Provider: IGO PARMAR Study: Bone densitometry was performed. Exam Date: August 31, 2022 Accession number: [id number] Bone Density: Region BMD T-score Z-score Classification AP Spine(L1-L4) 1.153 1.0 3.0 Normal Femoral Neck (Left) 0.700 -1.3 0.4 Osteopenia Total Hip (Left) 0.946 0.0 1.5 Normal Femoral Neck (Right) 0.703 -1.3 0.5 Osteopenia Total Hip (Right) 0.916 -0.2 1.3 Normal Total Hip Mean 0.931 -0.1 1.4 Normal World Health Organization criteria for BMD impression classify patients as: Normal (T-score at or above -1.0), Osteopenia (T-score between -1.0 and -2.5), or Osteoporosis (T-score at or below -2.5). 10-year Fracture Risk(1): Major Osteoporotic Fracture 9.2% Hip Fracture 1.1% Reported Risk Factors: [place] (), Neck BMD=0.700, BMI=28.6 (1) FRAX(R) Version 3.08. Fracture probability calculated for an untreated patient. Fracture probability may be lower if the patient has received treatment. Clinical Information Provided by Patient: Has used the following medications: Vitamin D, Calcium Has the following medical conditions: Asthma or Emphysema, Cancer, Inflammatory bowel diseases, Hysterectomy, Uterine,breast,and melanoma Patient maximum height was 64 Menopause Age: 52 Does not regularly consume dairy products Onset of menses at age 9 Number of children 2 Impression: The patient has low bone mass, based on the Left Femoral Neck T-score. The patient has an estimated ten-year risk of hip fracture of 1.1% and an estimated ten-year risk of major fracture of 9.2%, based on the WHO FRAX algorithm. Discussion: BONE DENSITY IS LOW AT ONE OR MORE SKELETAL SITES. This patient's lowest T-score is low at one or more skeletal sites. It meets the World Health Organization's (WHO) criteria for ?low bone mass? (T-score between -1.0 and -2.5). The patient's 10-year risk of fracture as calculated by FRAX is less than the threshold where pharmacological therapy is recommended by the National Osteoporosis Foundation (NOF). However, all treatment decisions require clinical judgment and consideration of individual patient factors, including patient preferences, comorbidities, previous drug use, risk factors not captured in the FRAX model (e.g., frailty, falls, vitamin D deficiency, increased bone turnover, interval significant decline in bone density) and possible under or overestimation of fracture risk by FRAX. The patient should follow a healthful lifestyle (good nutrition with adequate calcium and vitamin D, and appropriate weight-leo
== END 2022-08-31 16:43 | disposition home or self-care (01) ==
PROVIDERS: PCP Internal Medicine; Visit Provider Obstetrics & Gynecology
DX: Z78.0 Asymptomatic menopausal state (principal); M85.89 Other specified disorders of bone density and structure, multiple sites
CPT/HCPCS: 77080

== ENCOUNTER 2023-02-24 15:45 | Outpatient (CLI) | payer OTHER, SELFPAY ==
--- NOTE | ~2023-02-24 | XR_ITS ---
XR abdomen/kub 1V 02/24/2023 15:32 Indication: Constipation. Procedure: KUB Comparison: No prior studies for comparison. Findings: Bowel gas pattern is nonobstructive. Moderate colonic fecal loading. There is calcification right upper abdomen which may represent a renal stone. Moderate lumbar spondylosis. There are pelvic phleboliths. No acute osseous abnormality. Lung bases unremarkable. Impression: 1: Possible right nephrolithiasis. 2: Nonobstructive bowel gas pattern. Reviewed, dictated and finalized at location L. Impression: 1: Possible right nephrolithiasis. 2: Nonobstructive bowel gas pattern.
[2023-02-24 16:15] LABS: Hematocrit 39.8 % (37.0-47.0); Hemoglobin 13.5 g/dL (12.0-15.0); Mean Corpuscular HGB Conc 33.9 g/dl (32-36); Mean Corpuscular Hemoglobin 29.5 pg (26-34); Mean Corpuscular Volume 86.9 fl (80-100); Mean Platelet Volume 8.9 fl (7.4-10.4); Platelet Count Result 297 k/mm3 (150-375); Red Blood Count 4.58 M/mm3 (4.2-5.4); Red Cell Distribution Width 12.4 % (11.5-14.5); White Blood Count 4.8 K/mm3 (4.5-10.0)
[2023-02-24 16:43] LABS: Erythrocyte Sedimentation Rate 15 mm/hr (0-20)
[2023-02-24 19:26] LABS: Alanine Aminotransferase 33 U/L (6-35); Albumin Level 4.4 g/dL (3.5-5.1); Alkaline Phosphatase 71 U/L (38-126); Anion Gap 3 mmol/L (8-16); Aspartate Amino Transferase 36 U/L (14-36); Bilirubin,Total 0.6 mg/dL (0.2-1.3); Blood Urea Nitrogen 10 mg/dL (7-17); CRP 0.6 mg/dL (<1.0); Calcium 8.9 mg/dL (8.4-10.2); Carbon Dioxide 34 mmol/L (22-30); Chloride 102 mmol/L (98-107); Estimated Glomerular Filt Rate > 60; Glucose 83 mg/dL (65-110); Potassium 3.8 mmol/L (3.4-5.0); Sodium 139 mmol/L (137-145)
[2023-02-24 19:53] LABS: Thyroid Stimulating Hormone 0.142 uIU/mL (0.465-4.680)
== END 2023-02-24 15:46 | disposition home or self-care (01) ==
PROVIDERS: PCP Internal Medicine; Visit Provider Nurse Practitioner Family
DX: K59.00 Constipation, unspecified (principal); R11.2 Nausea with vomiting, unspecified; R10.9 Unspecified abdominal pain
CPT/HCPCS: 36415; 74018; 80053; 84443; 85027; 85652; 86140

== ENCOUNTER 2023-02-25 07:38 | Outpatient (NON) | payer OTHER, SELFPAY ==
[2023-03-06 22:21] LABS: Calprotectin, Stool 28 mcg/g
== END 2023-02-25 07:39 | disposition home or self-care (01) ==
PROVIDERS: PCP Internal Medicine; Visit Provider Nurse Practitioner Family
DX: K59.00 Constipation, unspecified (principal)
CPT/HCPCS: 83993

== ENCOUNTER 2023-05-27 16:20 | Emergency (ER) | payer OTHER, SELFPAY ==
--- NOTE | 2023-05-27 16:25 | ED.GENADULT ---
HPI - General Adult General Chief complaint: Skin/Abscess/Foreign Body Stated complaint: Rash Time Seen by Provider: 05/27/23 16:25 Source: patient, RN notes reviewed and old records reviewed Mode of arrival: ambulatory Limitations: no limitations History of Present Illness HPI narrative: 68-year-old female presents to the [facility] with complaints of a rash. Patient states that she was clearing brush 10 days ago, rash developed 10 days ago. Primary care called her in a Medrol Dosepak on the . States she did not get better rash still there. Was called in some hydralazine on the , 2 days ago. States that that makes her dizzy and can not take it. Patient extremely anxious, has a rash to the left forearm and small areas throughout the body. Patient stating that the itching is so severe Patient requesting a shot to help with her symptoms. Related Data Home Medications Medication Instructions Recorded Confirmed cholecalciferol (vitamin D3) 50 50 mcg PO DAILY 03/20/20 05/27/23 mcg (2,000 unit) capsule simvastatin 40 mg tablet 40 mg PO DAILY 03/20/20 05/27/23 calcium carbonate 390 mg calcium 390 mg PO DAILY 03/31/21 05/27/23 (1,000 mg) tablet cetirizine 10 mg capsule (Zyrtec) 10 mg PO DAILY PRN Allergy Symptoms 03/15/22 05/27/23 multivitamin with minerals 1 tablet PO DAILY 04/13/22 05/27/23 (Hair,Skin and Nails tablet) Allergies Allergy/AdvReac Type Severity Reaction Status Date / Time ciprofloxacin Allergy Severe nausea Verified 05/10/23 08:58 vomiting codeine Allergy Severe severe Verified 05/10/23 08:58 nausea vomiting levofloxacin Allergy Severe nausea Verified 05/10/23 08:58 vomiting Penicillins Allergy Intermediate Hives / Verified 05/10/23 08:58 Red Face erythromycin base AdvReac Intermediate Nausea and Verified 05/27/23 16:23 Vomiting lactose AdvReac Intermediate STOMACH Verified 05/27/23 16:23 UPSETS Sulfa (Sulfonamide AdvReac Intermediate HIVE, Verified 05/27/23 16:23 Antibiotics) DIFFICULTY BREATHING sulfamethoxazole AdvReac Intermediate HIVE, Verified 05/27/23 16:23 DIFFICULTY BREATHING trimethoprim AdvReac Intermediate HIVE, Verified 05/27/23 16:23 DIFFICULTY BREATHING amoxicillin AdvReac Mild Hives Verified 05/27/23 16:23 clarithromycin AdvReac Mild HIVES,RASH,DIFFICULTY Verified 05/27/23 16:23 BREATHING Quinolones AdvReac Mild HIVES,RASH Verified 05/27/23 16:23 PAIN MEDS AdvReac Intermediate SEVERE Uncoded 05/27/23 16:23 NAUSEA AND VOMITING IVP DYE AdvReac Mild Rash Uncoded 05/27/23 16:23 Review of Systems Review of Systems: All systems reviewed & are unremarkable except as noted in HPI and below Constitutional: Constitutional: Reports no additional constitutional complaints Eyes: Eyes: Reports no additional eye complaints ENT: Reports system reviewed and no additional complaints, except as documented Cardiovascular: Cardiovascular: Reports no additional cardiovascular complaints, Denies chest pain and Denies dyspnea Respiratory: Respiratory: Reports no additional respiratory complaints, Denies chest congestion, Denies cough and Denies dyspnea Gastrointestinal: Gastrointestinal: Reports no additional gastrointestinal complaints, Denies abdominal pain, Denies nausea and Denies vomiting Musculoskeletal: Musculoskeletal: Reports no additional musculoskeletal complaints Integumentary/Breasts: Skin/Breast: Reports as per HPI and Reports rash Neurologic: Reports system reviewed and no additional complaints, except as documented Psychiatric: Psychiatric: Reports no additional psychiatric complaints Allergic/Immunologic: Allergic/Immunologic: Reports no additional allergic/immunologic complaints PMFSH Past Medical History Medical History Abdominal pain Cancer Change in bowel habits Constipation GERD (gastroesophageal reflux disease) History of dmitry
[2023-05-27 16:30] VITALS: BP 141/74; PULSE 114; RESP 18; TEMP 36.1; O2SAT 98
[2023-05-27] MEDS: methylPREDNISolone SOD SUCC 125 MG VIAL IM (16:43)
== END 2023-05-27 16:58 | disposition home or self-care (01) ==
PROVIDERS: Emergency Provider Nurse Practitioner; PCP Internal Medicine
DX: L25.9 Unspecified contact dermatitis, unspecified cause (principal); K21.9 Gastro-esophageal reflux disease without esophagitis; E78.5 Hyperlipidemia, unspecified; M85.80 Other specified disorders of bone density and structure, unspecified site; E55.9 Vitamin D deficiency, unspecified; Z85.3 Personal history of malignant neoplasm of breast; Z85.828 Personal history of other malignant neoplasm of skin; Z85.42 Personal history of malignant neoplasm of other parts of uterus; Z85.820 Personal history of malignant melanoma of skin; Z90.13 Acquired absence of bilateral breasts and nipples
CPT/HCPCS: 96372; 99213; G0463; J2930

== ENCOUNTER 2023-07-05 14:00 | Outpatient (CLI) | payer OTHER, SELFPAY ==
--- NOTE | ~2023-07-05 | US_ITS ---
EXAMINATION: US soft tissue chest INDICATION: History of bilateral mastectomy for breast cancer TECHNIQUE: High resolution complete bilateral soft tissue ultrasound of the chest wall is performed COMPARISON: 05/20/2022 FINDINGS: No suspicious cystic or solid mass is identified. Normal subcutaneous tissues are seen. IMPRESSION: 1. No suspicious cystic or solid mass identified. Reviewed, dictated and finalized at location A.
== END 2023-07-05 14:01 | disposition home or self-care (01) ==
PROVIDERS: PCP Internal Medicine; Visit Provider Physician Assistant Surgical
DX: Z85.3 Personal history of malignant neoplasm of breast (principal)
CPT/HCPCS: 76604

== ENCOUNTER 2023-09-01 10:11 | Outpatient (CLI) | payer OTHER, SELFPAY ==
[2023-09-01 10:41] LABS: Basophils Percent Auto 0.6 % (0.2-1.2); Eosinophils Absolute Auto 0.1 K/mm3 (0-0.3); Eosinophils Percent Auto 2.1 % (0-4.4); Hemoglobin 13.2 g/dL (12.0-15.0); Immature Granulocyte Absolute 0.02 K/mm3 (0.00-0.031); Immature Granulocyte Percent A 0.4 % (0-0.5); Lymphocytes Absolute Auto 1.16 K/mm3 (0.9-3.2); Lymphocytes Percent Auto 22.4 % (18.3-44.2); Mean Corpuscular HGB Conc 33.8 g/dl (32-36); Mean Corpuscular Hemoglobin 29.3 pg (26-34); Mean Corpuscular Volume 86.7 fl (80-100); Monocytes Absolute Auto 0.5 K/mm3 (0.1-0.6); Monocytes Percent Auto 9.3 % (2.6-8.5); Neutrophils Absolute Auto 3.4 K/mm3 (1.3-6.7); Neutrophils Percent Auto 65.2 % (45.5-73.1); Platelet Count Result 291 k/mm3 (150-375); Red Cell Distribution Width 12.2 % (11.5-14.5); White Blood Count 5.2 K/mm3 (4.5-10.0)
[2023-09-01 10:59] LABS: Alanine Aminotransferase 29 U/L (6-35); Albumin Level 4.4 g/dL (3.5-5.1); Alkaline Phosphatase 71 U/L (38-126); Anion Gap 9 mmol/L (8-16); Aspartate Amino Transferase 32 U/L (14-36); Bilirubin,Total 0.9 mg/dL (0.2-1.3); Blood Urea Nitrogen 9 mg/dL (7-17); Calcium 9.6 mg/dL (8.4-10.2); Carbon Dioxide 29 mmol/L (22-30); Chloride 105 mmol/L (98-107); Cholesterol 203 mg/dL (0-200); Estimated Glomerular Filt Rate > 60; Glucose 96 mg/dL (65-110); HDL Direct 42 mg/dL; Magnesium 1.9 mg/dL (1.6-2.3); Potassium 3.7 mmol/L (3.4-5.0); Sodium 143 mmol/L (137-145); Triglycerides 249 mg/dL (<150)
[2023-09-01 11:20] LABS: LDL Cholesterol Direct 105 mg/dL
== END 2023-09-01 10:12 | disposition home or self-care (01) ==
LOC: ANHLAB 10:13
PROVIDERS: PCP Internal Medicine; Visit Provider Internal Medicine
DX: K21.9 Gastro-esophageal reflux disease without esophagitis (principal); Z13.6 Encounter for screening for cardiovascular disorders; E55.9 Vitamin D deficiency, unspecified
CPT/HCPCS: 36415; 80053; 80061; 82306; 82607; 83735; 85025

== ENCOUNTER 2023-11-04 09:42 | Inpatient (IN) | payer OTHER, SELFPAY ==
[2023-11-04] VITALS (15 sets, daily range): BP systolic 104–139; BP diastolic 53–70; PULSE 70–97; RESP 12–17; TEMP 36.5–37.6; O2SAT 93–100
--- NOTE | ~2023-11-04 | CT_ITS ---
EXAMINATION: CT brain wo con DATE: 11/04/2023 13:55 INDICATION: Head injury. TECHNIQUE: Computed tomography (CT) of the head was performed without intravenous contrast. The mA wa s adjusted according to patient size. Iterative reconstruction technique was employed. The dose-lengt h product was 605.33 mGy-cm. COMPARISON: Head CT 03/09/2022 FINDINGS: There is no intracranial hemorrhage, acute infarction, or abnormal intracranial mass lesion . The ventricles are normal in size. There are old fracture deformities of the nasal processes of cosmo pardo. There is mild mucosal thickening in the paranasal sinuses. The mastoid air cells are normal. T he orbits are normal. IMPRESSION: 1. Normal brain. Reviewed, dictated and finalized at location A. ENSING LEAD IMPRESSION: 1. Normal brain.
--- NOTE | ~2023-11-04 | XR_ITS ---
EXAMINATION: XR chest 1V portable INDICATION: Cough TECHNIQUE: Portable AP chest at 1031 hours COMPARISON: 11/04/2023 FINDINGS: The lungs are free of acute opacities. No pleural effusion or pneumothorax. The cardiomedia stinal silhouette is normal. IMPRESSION: 1. No acute cardiopulmonary abnormality. Reviewed, dictated and finalized at location L. ET PRESSMAN
--- NOTE | ~2023-11-04 | CT_ITS ---
EXAMINATION: CT cervical spine wo con DATE: 11/04/2023 13:56 INDICATION: Neck injury. TECHNIQUE: Computed tomography (CT) of the cervical spine was performed without intravenous contrast. Automated exposure control and iterative reconstruction technique were employed. The dose-length pro duct was 366.81 mGy-cm. COMPARISON: None FINDINGS: There are changes of left hemithyroidectomy. There are multiple nodules in right thyroid lo be measuring up to 1.9 cm. There is hypolordosis of cervical spine. Vertebral body heights are normal . There is mildly decreased disc height at C3-C4 and C5-C6 and severely decreased disc height at C6-C 7. The following disc levels are specifically discussed: C2-C3: There is no uncovertebral joint osteoarthritis. There is severe bilateral facet joint osteoart hritis. There is mild bilateral neural foraminal stenosis. There is no central canal stenosis. C3-C4: There is mild bilateral uncovertebral joint osteoarthritis. There is severe bilateral facet airam int osteoarthritis. There is moderate right and mild left neural foraminal stenosis. There is mild ce ntral canal stenosis. C4-C5: There is no uncovertebral joint osteoarthritis. There is severe bilateral facet joint osteoart hritis. There is mild bilateral neural foraminal stenosis. There is no central canal stenosis. C5-C6: There is mild bilateral uncovertebral joint osteoarthritis. There is moderate right and severe left facet joint osteoarthritis. There is mild left neural foraminal stenosis. There is no central c anal stenosis. C6-C7: There is severe bilateral uncovertebral joint osteoarthritis. There is moderate right and alycia re left facet joint osteoarthritis. There is mild right neural foraminal stenosis. There is mild cent ral canal stenosis. C7-T1: There is no uncovertebral joint osteoarthritis. There is severe bilateral facet joint osteoart hritis. There is mild bilateral neural foraminal stenosis. There is no central canal stenosis. IMPRESSION: 1. No fracture. 2. Severe cervical spondylosis. Reviewed, dictated and finalized at location A. D ATTENDANT
--- NOTE | ~2023-11-04 | CT_ITS ---
EXAMINATION: CT brain & sinus wo con INDICATION: Head injury COMPARISON: None TECHNIQUE: Computed tomography (CT) of the brain and paranasal sinuses was performed without intraven ous contrast. The dose-length product (DLP) was 681.00 mGy-cm. Iterative reconstruction was used. FINDINGS: CT HEAD: No intracranial hemorrhage, acute infarction, or abnormal mass lesion. The ventricles are no rmal. No abnormal mass effect or midline shift. The ernst-white matter differentiation is normal. The basal cisterns are patent. The orbits are normal. CT SINUSES: There is normal development and pneumatization of the paranasal sinuses. There is mild mu cosal thickening of the sphenoid sinuses and left maxillary sinus. The frontal, ethmoid, and right ma xillary sinuses are clear. The bilateral ostiomeatal complexes are patent. Visualized soft tissues ar e unremarkable. There are old bilateral nasal bone fractures. IMPRESSION: 1. No acute intracranial abnormality. 2. Mild sinus disease. Reviewed, dictated and finalized at location A. NTURE EDUCATION TEACHER
--- NOTE | ~2023-11-04 | XR_ITS ---
EXAMINATION: XR hip BI 2V w AP pelvis DATE: 11/07/2023 08:54 INDICATION: Fall. TECHNIQUE: An anteroposterior view of the pelvis and 2 views of each hip were obtained. COMPARISON: None. FINDINGS: Bone alignment is normal. No fracture. There is mild osteoarthritis of the hips. IMPRESSION: 1. Mild osteoarthritis of the hips. Reviewed, dictated and finalized at location E. T TOUR GUIDE
--- NOTE | ~2023-11-04 | XR_ITS ---
Clinical Indication: Fever PA and lateral views of the chest: Comparison: 12/27/2012 Findings: The lungs are clear, without evidence of focal consolidation or pleural effusion. Cardiome diastinal silhouette is within normal limits. Bones and soft tissues are unremarkable. Impression: Normal chest. Reviewed, dictated and finalized at [facility]. ULTANT INTERN Impression: Normal chest.
--- NOTE | ~2023-11-04 | US_ITS ---
EXAMINATION: US abdomen limited DATE: 11/10/2023 15:19 INDICATION: Elevated liver enzymes TECHNIQUE: Multiple grayscale and Doppler ultrasound images of the abdomen were obtained. COMPARISON: None available FINDINGS: The head and body of the pancreas are normal. The pancreatic tail is obscured by bowel gas. The liver demonstrates increased echogenicity, heterogenous echotexture, and decreased through trans mission. No surface nodularity. Normal hepatopetal flow in the main portal vein. The gallbladder is n ormal with no abnormal wall thickening, pericholecystic fluid or stones. The normal common bile duct measures 2 mm. There was no sonographic Quintana sign. IMPRESSION: 1. Diffuse hepatic steatosis. Reviewed, dictated and finalized at location L. NDRICAL MIXER
--- NOTE | ~2023-11-04 | MR_ITS ---
EXAMINATION: MR brain/brain stem wo con DATE: 11/07/2023 15:08 INDICATION: fall + n/v TECHNIQUE: Magnetic resonance imaging (MRI) of the brain and brainstem was performed without intraven ous contrast. Sequences included sagittal and axial T1-weighted SE, axial diffusion-weighted FS EPI A SSET, axial T2*-weighted GRE, axial T2-weighted FLAIR Propeller, and axial T2-weighted Propeller. Pos tcontrast axial and coronal T1-weighted SE was obtained. Apparent diffusion coefficient (ADC) maps we re created. COMPARISON: CT brain sinus to 424 FINDINGS: No abnormal restricted diffusion to suggest acute ischemic infarct. No MRI evidence of hemorrhage or extra-axial collection. No suspicious foci of susceptibility to suggest prior intraparenchymal hemorr gonzalez. Normal white matter signal. No evidence of advanced or lobar predominant parenchymal volume los s. The basilar cisterns are patent. Flow voids are preserved. Prominent vessel in the right parietal lobe, best seen in the susceptibility sequence. Frontal, sphenoid, and ethmoid mucosal thickening. Gl obes and orbital contents are within normal limits. IMPRESSION: No acute intracranial process. Prominent right parietal vessel, likely representing a developmental venous anomaly versus prominent cortical vein. Reviewed, dictated and finalized at location K. ST FIRE WARDEN IMPRESSION: No acute intracranial process. Prominent right parietal vessel, likely representing a developmental venous ano ana versus prominent cortical vein.
[2023-11-04 12:16] LABS: Influenza A QL RT-PCR Positive (Negative); Influenza B QL RT-PCR Negative (Negative); RSV RNA, RT-PCR Negative (Negative); SARS-CoV-2 RNA PCR Negative (Negative)
--- NOTE | 2023-11-04 12:58 | ED.FEVER ---
HPI - Fever General Chief Complaint: Fever Stated Complaint: N/V, flu symptoms, syncopal at home Time Seen by Provider: 11/04/23 12:45 History of Present Illness HPI Narrative: Patient is a 68-year-old female with history of breast CA, cervical CA, melanoma here with flu like symptoms and syncope. Symptoms began 2 days ago with a headache, fever, Tmax 103F, myalgias, arthralgias, cough. She has had multiple episodes of emesis over the last couple of days. She has been holding off on getting seen and treating herself at home. Today she got up and was going to take her dog out when when she got light headed and woke up on her side on the floor. She is unsure if she hit her head. She does not take anticoagulation, but has been taking some aspirin for symptoms. No prodromal chest pain or shortness of breath before the syncopal episode. EMS was called and she was brought into the ED. She notes that she vomited several times on her way into the ER, received zofran by EMS. 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 No prior DVT, PE, cardiac history. Related Data Home Medications Medication Instructions Recorded Confirmed cholecalciferol (vitamin D3) 50 50 mcg PO DAILY 03/20/20 06/13/23 mcg (2,000 unit) capsule simvastatin 40 mg tablet 40 mg PO DAILY 03/20/20 06/13/23 calcium carbonate 390 mg calcium 390 mg PO DAILY 03/31/21 06/13/23 (1,000 mg) tablet cetirizine 10 mg capsule (Zyrtec) 10 mg PO DAILY PRN Allergy Symptoms 03/15/22 06/13/23 multivitamin with minerals 1 tablet PO DAILY 04/13/22 06/13/23 (Hair,Skin and Nails tablet) Allergies Allergy/AdvReac Type Severity Reaction Status Date / Time ciprofloxacin Allergy Severe nausea Verified 11/04/23 12:29 vomiting codeine Allergy Severe severe Verified 11/04/23 12:29 nausea vomiting levofloxacin Allergy Severe nausea Verified 11/04/23 12:29 vomiting Penicillins Allergy Intermediate Hives / Verified 11/04/23 12:29 Red Face erythromycin base AdvReac Intermediate Nausea and Verified 11/04/23 12:29 Vomiting lactose AdvReac Intermediate STOMACH Verified 11/04/23 12:29 UPSETS Sulfa (Sulfonamide AdvReac Intermediate HIVE, Verified 11/04/23 12:29 Antibiotics) DIFFICULTY BREATHING sulfamethoxazole AdvReac Intermediate HIVE, Verified 11/04/23 12:29 DIFFICULTY BREATHING trimethoprim AdvReac Intermediate HIVE, Verified 11/04/23 12:29 DIFFICULTY BREATHING amoxicillin AdvReac Mild Hives Verified 11/04/23 12:29 clarithromycin AdvReac Mild HIVES,RASH,DIFFICULTY Verified 11/04/23 12:29 BREATHING Quinolones AdvReac Mild HIVES,RASH Verified 11/04/23 12:29 PAIN MEDS AdvReac Intermediate SEVERE Uncoded 11/04/23 12:29 NAUSEA AND VOMITING IVP DYE AdvReac Mild Rash Uncoded 11/04/23 12:29 Review of Systems Review of Systems: All systems reviewed & are unremarkable except as noted in HPI and below PMFSH Past Medical History Medical History Abdominal pain Cancer Change in bowel habits Constipation GERD (gastroesophageal reflux disease) History of bilateral breast cancer (~2003) Tubular History of squamous cell carcinoma History of uterine cancer (~2007) Hyperlipidemia due to dietary fat intake Irritable bowel syndrome Nausea and vomiting Osteopenia Personal history of melanoma in-situ (~2009) Left face Vitamin D deficiency Surgical History Surgical History History of colonoscopy with polypectomy History of endometrial ablation X2 History of Mohs surgery for squamous cell carcinoma of skin History of partial thyroidectomy Due to benign cyst of the left thyroid lobe History of tonsillectomy and adenoidectomy History of total hysterectomy with bilateral salpingo-oophorectomy (BSO) (~2007) Due to uterine cancer Status
--- NOTE | 2023-11-04 12:59 | ECG_ITS ---
Measurements Intervals [place] Rate: 80 P: 43 DC: 169 QRS: 20 QRSD: 88 T: 36 QT: 374 QTc: 431 Interpretive Statements SINUS RHYTHM NORMAL ELECTROCARDIOGRAM NO PREVIOUS ECG AVAILABLE FOR COMPARISON Electronically Signed On 11-04-2023 14:01:22 SENIOR PROGRAM ANALYST by Arsh Gorman M.D.
--- NOTE | 2023-11-04 13:14 | PC.NURSE ---
Patient in CT. Will do EKG when she returns
[2023-11-04] MEDS: ONDANSETRON INJ 4 MG/2 ML VIAL IV PUSH ×2 (13:41→22:54)
[2023-11-04] MEDS: LACTATED RINGERS 1,000 ML 999 ML IV CONT (13:41)
[2023-11-04 14:45] LABS: Basophils Percent Auto 0.2 % (0.2-1.2); Hematocrit 37.4 % (37.0-47.0); Immature Granulocyte Absolute 0.02 K/mm3 (0.00-0.031); Immature Granulocyte Percent A 0.4 % (0-0.5); Lymphocytes Absolute Auto 0.63 K/mm3 (0.9-3.2); Lymphocytes Percent Auto 13.6 % (18.3-44.2); Mean Corpuscular HGB Conc 32.1 g/dl (32-36); Mean Corpuscular Hemoglobin 28.6 pg (26-34); Mean Corpuscular Volume 89.3 fl (80-100); Mean Platelet Volume 9.4 fl (7.4-10.4); Monocytes Absolute Auto 0.5 K/mm3 (0.1-0.6); Monocytes Percent Auto 11.2 % (2.6-8.5); Neutrophils Absolute Auto 3.5 K/mm3 (1.3-6.7); Neutrophils Percent Auto 74.6 % (45.5-73.1); Platelet Count Result 182 k/mm3 (150-375); Red Blood Count 4.19 M/mm3 (4.2-5.4); Red Cell Distribution Width 12.4 % (11.5-14.5); White Blood Count 4.6 K/mm3 (4.5-10.0)
[2023-11-04 14:54] LABS: Alanine Aminotransferase 40 U/L (6-35); Albumin Level 3.4 g/dL (3.5-5.1); Alkaline Phosphatase 53 U/L (38-126); Anion Gap 7 mmol/L (8-16); Aspartate Amino Transferase 56 U/L (14-36); Bilirubin,Total 0.5 mg/dL (0.2-1.3); Blood Urea Nitrogen 16 mg/dL (7-17); Calcium 8.2 mg/dL (8.4-10.2); Carbon Dioxide 25 mmol/L (22-30); Chloride 104 mmol/L (98-107); Estimated CRCL calculation 56 ml/min; Estimated Glomerular Filt Rate > 60; Glucose 98 mg/dL (65-110); Lipase 87 U/L (23-300); Potassium 3.6 mmol/L (3.4-5.0); Sodium 136 mmol/L (137-145)
[2023-11-04 15:05] LABS: NT Pro B Type Natriuretic Pept 36 pg/mL (19.9-100); Troponin I < 0.012 ng/mL (0.000-0.034)
[2023-11-04 15:36] LABS: D Dimer 0.43 ug/mL (<0.48)
--- NOTE | 2023-11-04 17:35 | ECG_ITS ---
Measurements Intervals [place] Rate: 84 P: 71 MO: 165 QRS: 46 QRSD: 94 T: 58 QT: 359 QTc: 427 Interpretive Statements SINUS RHYTHM COMPARED TO ECG 11/04/2023 13:17:39 NO SIGNIFICANT CHANGES Electronically Signed On 11-05-2023 12:26:49 [employer]INE ENVIRONMENTAL ENGINEER by Serge Ramirez M.D.
[2023-11-04 18:03] LABS: Troponin I < 0.012 ng/mL (0.000-0.034)
[2023-11-04] MEDS: OSELTAMIVIR PHOSPHATE 30 MG CAPSULE PO (18:17)
--- NOTE | 2023-11-04 20:34 | ADMGEN ---
This patient, Gillian Smith, was admitted to Medical Room 250-01. Patient/family oriented to hospital policies and general routines including ID bracelet, bed and alarms, visiting hours, pain management, procedures, bathroom and other care routines, personal items, smoking policy, room service/diet, and visiting hours. Information on how to activate the Rapid Response Team has been discussed. Patient/Family are encouraged to report perceived risks to care and to ask questions if they do not understand what they are told or what they should do.
[2023-11-04] MEDS: LACTATED RINGERS 1,000 ML 125 ML IV CONT (21:05)
--- NOTE | 2023-11-04 22:05 | PM.IMHP ---
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 She is complaining of the feeling, tired and fatigued with headaches, myalgias, arthralgias, cough and T-max of 103? F couple of days ago. She has had multiple episodes of vomiting as well. She has been treating herself at home and has not seen any medical provider. She got up today and took her dog out when she got lightheaded and woke on side of the floor. She is not sure if she hit her head or not. She does not take anticoagulation but has been taken some aspirin for her symptoms. EMS was called and she was brought to the ER for evaluation, workup was done which showed influenza A with hypotension and dehydration. She was given Tamiflu started on IV hydration which helped with her symptoms. No evidence of any intracranial bleeding on CT scan of the head. She is being admitted for medical management, flu medications, IV hydration and close monitoring. Review of Systems Review of Systems: 14 systems were reviewed with pertinent positives and negatives per HPI. Except as documented in the HPI/progress notes, all other systems were reviewed and are negative. All systems reviewed & are unremarkable except as noted in HPI and below PMFSH Past Medical History Medical History Abdominal pain Cancer Change in bowel habits Constipation GERD (gastroesophageal reflux disease) History of bilateral breast cancer (~2003) Tubular History of squamous cell carcinoma History of uterine cancer (~2007) Hyperlipidemia due to dietary fat intake Irritable bowel syndrome Nausea and vomiting Osteopenia Personal history of melanoma in-situ (~2009) Left face Vitamin D deficiency Surgical History Surgical History History of colonoscopy with polypectomy History of endometrial ablation X2 History of Mohs surgery for squamous cell carcinoma of skin History of partial thyroidectomy Due to benign cyst of the left thyroid lobe History of tonsillectomy and adenoidectomy History of total hysterectomy with bilateral salpingo-oophorectomy (BSO) (~2007) Due to uterine cancer Status post bilateral mastectomy Family History Family History Grandparent Diabetes mellitus Asthma Mother , At age 85 Hyperlipidemia Heart disease Father , At age 75 Lung cancer Cancer Sibling Malignant neoplasm of prostate Family history of malignant neoplasm of ovary Hypertension Son Asthma Sibling Cancer Hypertension Social History Social History Social History: She lives home with her of 41 years. 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 She has 2 sons who are healthy. She is a lifelong nonsmoker and does not drink alcohol. Code status: Full code Surrogate decision maker: Smoking status: Never smoker Alcohol intake: never Substance use: never Do You Feel Safe in your Home?: Yes Lack of Transportation: No Lack of Food: Never True Current Housing: I Have Housing Concerned About Future Housing: No Difficulty Paying Gas/Electric Bills: No Difficulty Paying for Meds: No Currently Unemployed: No Education: Bachelor's Degree Difficulty w/ Childcare or Family Care: No Living arrangements: with family Occupation/Education: occupation Gender identity (if verbalized by the patient): Female Sexual Orientation (if Verbalized by the Patient): Straight or Heterosexual Spiritual care concerns: No Meds Home Medications and Allergies Home Medications Medicat
[2023-11-04] MEDS: CYANOCOBALAMIN INJ 1,000 MCG/ML VIAL 1000 MCG IM (22:47)
--- NOTE | 2023-11-04 23:30 | PC.NURSE ---
Addendum entered by Mack Joseph RN 11/04/23 23:40: fall occurred at 2310 hrs not 2210 Original Note: Patient had a syncopal episode while sitting on the toilet and fell and hit her head at 2210 hrs witnessed by nurse. Patient then regained orientation and was able to stand with assistance. Pt was taken by wheelchair back to the bed and a full set of vitals was taken. Temp was 97.7, pulse 72, respirations 17, O2 was 93% on room air, and BP was 137/54. Dr. Morales was then notified of the incident and no new orders were given at this time. Nurse will continue observation and monitoring this shift.
[2023-11-05] VITALS (9 sets, daily range): BP systolic 128–139; BP diastolic 54–61; PULSE 69–88; RESP 12–17; TEMP 36.5–37.1; O2SAT 93–97
[2023-11-05] MEDS: LACTATED RINGERS 1,000 ML 125 ML IV CONT ×3 (05:15→21:19)
[2023-11-05] MEDS: OSELTAMIVIR PHOSPHATE 30 MG CAPSULE PO ×2 (05:16→17:00)
[2023-11-05 06:10] LABS: Basophils Percent Auto 0.6 % (0.2-1.2); Hematocrit 36.1 % (37.0-47.0); Hemoglobin 11.8 g/dL (12.0-15.0); Immature Granulocyte Absolute 0.01 K/mm3 (0.00-0.031); Immature Granulocyte Percent A 0.3 % (0-0.5); Lymphocytes Absolute Auto 1.03 K/mm3 (0.9-3.2); Lymphocytes Percent Auto 32.6 % (18.3-44.2); Mean Corpuscular HGB Conc 32.7 g/dl (32-36); Mean Corpuscular Hemoglobin 28.8 pg (26-34); Mean Platelet Volume 9.5 fl (7.4-10.4); Monocytes Absolute Auto 0.4 K/mm3 (0.1-0.6); Neutrophils Absolute Auto 1.7 K/mm3 (1.3-6.7); Neutrophils Percent Auto 53.5 % (45.5-73.1); Platelet Count Result 199 k/mm3 (150-375); Red Cell Distribution Width 12.4 % (11.5-14.5); White Blood Count 3.2 K/mm3 (4.5-10.0)
[2023-11-05 06:22] LABS: Anion Gap 5 mmol/L (8-16); Blood Urea Nitrogen 12 mg/dL (7-17); Calcium 8.1 mg/dL (8.4-10.2); Carbon Dioxide 30 mmol/L (22-30); Chloride 101 mmol/L (98-107); Estimated CRCL calculation 56 ml/min; Estimated Glomerular Filt Rate > 60; Glucose 95 mg/dL (65-110); Magnesium 2.1 mg/dL (1.6-2.3); Phosphorus 3.9 mg/dL (2.5-4.5); Potassium 3.2 mmol/L (3.4-5.0); Sodium 136 mmol/L (137-145)
[2023-11-05 06:32] LABS: Troponin I < 0.012 ng/mL (0.000-0.034)
[2023-11-05] MEDS: SIMVASTATIN 20 MG TABLET 40 MG PO (09:14)
[2023-11-05] MEDS: THERAPEUTIC MULTIVITAMINS/MINERALS TAB (*BKC) 1 TABLET PO (09:14)
[2023-11-05] MEDS: PANTOPRAZOLE 40 MG TABLET PO (09:14)
[2023-11-05] MEDS: ENOXAPARIN 40 MG/0.4 ML SYRINGE SUB-Q (09:14)
[2023-11-05] MEDS: CHOLECALCIFEROL 1,000 UNITS TABLET 2000 UNITS PO (09:14)
[2023-11-05] MEDS: CALCIUM CARBONATE (TUMS) 500 MG (200 MG ELEMENTAL) 400 MG PO (09:14)
[2023-11-05] MEDS: LORATADINE 10 MG TABLET PO (09:14)
[2023-11-05] MEDS: FLUTICASONE PROPIONATE 0.05% NA SPR 16 GM BTL (*BKC) 1 SPRAY NASAL ×2 (09:15→21:20)
--- NOTE | 2023-11-05 09:48 | PM.IMPN ---
Progress Note: A&P Assessment and Plan (1) Influenza A: Code(s): J10.1 - Influenza due to other identified influenza virus with other respiratory manifestations Status: Acute Assessment and Plan: -viral PCR is + influenza A -continue oseltamivir q12hrs -continue LR 125ml/hr q 8hr (2) Syncope and collapse: Onset Date: ~11/05/23 Code(s): R55 - Syncope and collapse Status: Acute (3) Intractable vomiting with nausea: Code(s): R11.2 - Nausea with vomiting, unspecified Status: Acute (4) Hyperlipidemia: Code(s): E78.5 - Hyperlipidemia, unspecified Status: Acute Assessment and Plan: -continue home medication simvastatin (5) Crohn's colitis: Code(s): K50.10 - Crohn's disease of large intestine without complications Status: Acute (6) Anemia: Code(s): D64.9 - Anemia, unspecified Status: Acute Assessment and Plan: hgb is stable 11.8 (7) Allergies: Code(s): T78.40XA - Allergy, unspecified, initial encounter Status: Acute Assessment and Plan: -continue home medication loratadine (8) Acute dehydration: Code(s): E86.0 - Dehydration Status: Acute Assessment and Plan: Monitor electrolytes closely -recheck labs in the a.m. 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 Presented to the emergency room with complaint of feeling, tired and fatigued with headaches, myalgias, arthralgias, cough and T-max of 103? F couple of days ago, along with multiple episodes of vomiting as well. Patient reports she got up and took her dog out when she got lightheaded and woke on side of the floor.? She was not sure if she hit her head or not. Patient denies any anticoagulation medication, but has been taken some aspirin for her symptoms.? EMS was called and she was brought to the ER for evaluation, ED workup revealed: + influenza A with hypotension and dehydration. She was given Tamiflu started on IV hydration which helped with her symptoms.? No evidence of any intracranial bleeding on CT scan of the head.? Admitted for medical management, flu medications, IV hydration and close monitoring. Interval history: 11/05/2023 Patient seen this morning, son is by the bedside she reports no overnight events with continued body aches pain, denies any chest pain at this time. Review of Systems Review of Systems: All systems reviewed & are unremarkable except as noted in HPI and below Exam Narrative: PHYSICAL EXAMINATION: Vital signs: Please see the chart General physical exam: Patient lying in bed, pleasant and cooperative with exam, appears weak tired and fatigued Head/eyes: Atraumatic, EOMI, PERRLA ENT: +dry mucous membranes, nasal passages clear Neck: Supple, full range of motion, trachea midline CVS: S1 + S2, regular rate and rhythm, no murmurs Respiratory: Bilaterally decreased air entry in both lung lyon, mild-moderate B/L crackles, symmetric chest expansion Abdomen: Soft, non-tender, bowel sounds +ve, no organomegaly Extremities: No clubbing, no cyanosis, no edema, no calf tenderness Musculoskeletal: Moves all, adequate range of motion, no muscle spasms Skin: Warm, dry, no jaundice, no cyanosis Neurological: Awake, alert
[2023-11-05] MEDS: ONDANSETRON INJ 4 MG/2 ML VIAL IV PUSH (11:44)
--- NOTE | 2023-11-05 12:48 | PC.NURSE ---
Addendum entered by Beth Cardoso RN 11/05/23 14:46: Patient cannot have acetaminophen due to her liver history. Original Note: Patient resting in bed for morning assessment. Patient states she is still having diarrhea but once her colitis flares up there is not stopping it. She uses ibuprofen 600mg Q4-6hrs at home for abdominal pain. I added this to her home medications.
[2023-11-05] MEDS: CYANOCOBALAMIN INJ 1,000 MCG/ML VIAL 1000 MCG IM (14:04)
[2023-11-06] VITALS (9 sets, daily range): BP systolic 116–149; BP diastolic 65–70; PULSE 58–78; RESP 12–19; TEMP 36.2–36.6; O2SAT 94–99
[2023-11-06] MEDS: LACTATED RINGERS 1,000 ML 125 ML IV CONT ×3 (05:32→22:30)
[2023-11-06] MEDS: OSELTAMIVIR PHOSPHATE 30 MG CAPSULE PO ×2 (05:32→16:53)
[2023-11-06 06:04] LABS: Basophils Percent Auto 0.4 % (0.2-1.2); Eosinophils Percent Auto 0.4 % (0-4.4); Hematocrit 35.7 % (37.0-47.0); Immature Granulocyte Absolute 0.01 K/mm3 (0.00-0.031); Immature Granulocyte Percent A 0.4 % (0-0.5); Lymphocytes Absolute Auto 0.93 K/mm3 (0.9-3.2); Lymphocytes Percent Auto 35.4 % (18.3-44.2); Mean Corpuscular HGB Conc 33.6 g/dl (32-36); Mean Corpuscular Hemoglobin 28.7 pg (26-34); Mean Corpuscular Volume 85.4 fl (80-100); Mean Platelet Volume 9.1 fl (7.4-10.4); Monocytes Absolute Auto 0.3 K/mm3 (0.1-0.6); Monocytes Percent Auto 11.4 % (2.6-8.5); Neutrophils Absolute Auto 1.4 K/mm3 (1.3-6.7); Platelet Count Result 199 k/mm3 (150-375); Red Blood Count 4.18 M/mm3 (4.2-5.4); Red Cell Distribution Width 12.2 % (11.5-14.5); White Blood Count 2.6 K/mm3 (4.5-10.0)
[2023-11-06 06:30] LABS: Alanine Aminotransferase 36 U/L (6-35); Albumin Level 3.3 g/dL (3.5-5.1); Alkaline Phosphatase 52 U/L (38-126); Anion Gap 3 mmol/L (8-16); Aspartate Amino Transferase 44 U/L (14-36); Bilirubin,Total 0.6 mg/dL (0.2-1.3); Blood Urea Nitrogen 6 mg/dL (7-17); Calcium 8.3 mg/dL (8.4-10.2); Carbon Dioxide 31 mmol/L (22-30); Chloride 104 mmol/L (98-107); Estimated CRCL calculation 72 ml/min; Estimated Glomerular Filt Rate > 60; Glucose 101 mg/dL (65-110); Potassium 3.2 mmol/L (3.4-5.0); Sodium 138 mmol/L (137-145)
[2023-11-06] MEDS: CHOLECALCIFEROL 1,000 UNITS TABLET 2000 UNITS PO (08:09)
[2023-11-06] MEDS: SIMVASTATIN 20 MG TABLET 40 MG PO (08:09)
[2023-11-06] MEDS: PANTOPRAZOLE 40 MG TABLET PO (08:09)
[2023-11-06] MEDS: CALCIUM CARBONATE (TUMS) 500 MG (200 MG ELEMENTAL) 400 MG PO (08:09)
[2023-11-06] MEDS: THERAPEUTIC MULTIVITAMINS/MINERALS TAB (*BKC) 1 TABLET PO (08:09)
[2023-11-06] MEDS: FLUTICASONE PROPIONATE 0.05% NA SPR 16 GM BTL (*BKC) 1 SPRAY NASAL ×2 (08:10→20:26)
[2023-11-06] MEDS: LORATADINE 10 MG TABLET PO (08:10)
[2023-11-06] MEDS: ENOXAPARIN 40 MG/0.4 ML SYRINGE SUB-Q (08:10)
[2023-11-06] MEDS: ONDANSETRON INJ 4 MG/2 ML VIAL IV PUSH ×3 (08:11→20:26)
--- NOTE | 2023-11-06 10:38 | PCPTNOTE ---
attempted PT eval ~ 1030--pt ill, diarrhea, nausea and dizziness; pt too ill to participate in evaluation.
--- NOTE | 2023-11-06 12:37 | PM.IMPN ---
Progress Note: A&P Assessment and Plan (1) Influenza A: Code(s): J10.1 - Influenza due to other identified influenza virus with other respiratory manifestations Status: Acute Assessment and Plan: -viral PCR is + influenza A -continue oseltamivir q12hrs -continue LR 125ml/hr q 8hr (2) Syncope and collapse: Onset Date: ~11/05/23 Code(s): R55 - Syncope and collapse Status: Acute Assessment and Plan: -EKG sinus rhythm (3) Intractable vomiting with nausea: Code(s): R11.2 - Nausea with vomiting, unspecified Status: Acute Assessment and Plan: -pt continues to c/o nausea (4) Hyperlipidemia: Qualifiers: Hyperlipidemia type: unspecified Qualified Code(s): E78.5 - Hyperlipidemia, unspecified Code(s): E78.5 - Hyperlipidemia, unspecified Status: Acute Assessment and Plan: -continue home medication simvastatin (5) Crohn's colitis: Qualifiers: Digestive disease complication type: without complication Qualified Code(s): K50.10 - Crohn's disease of large intestine without complications Code(s): K50.10 - Crohn's disease of large intestine without complications Status: Acute Assessment and Plan: stable -initiate full liquid diet (6) Anemia: Qualifiers: Anemia type: unspecified type Qualified Code(s): D64.9 - Anemia, unspecified Code(s): D64.9 - Anemia, unspecified Status: Acute Assessment and Plan: hgb is stable 11.8 (7) Allergies: Qualifiers: Encounter type: initial encounter Qualified Code(s): T78.40XA - Allergy, unspecified, initial encounter Code(s): T78.40XA - Allergy, unspecified, initial encounter Status: Acute Assessment and Plan: -continue home medication loratadine (8) Acute dehydration: Code(s): E86.0 - Dehydration Status: Acute Assessment and Plan: Monitor electrolytes closely -continue daily labs -continue fluid rehydration (9) Vertigo: Code(s): R42 - Dizziness and giddiness Status: Acute Assessment and Plan: -up with assistance -check daily orthostatic vitals -PT eval and treat (10) Fall: Code(s): W19.XXXA - Unspecified fall, initial encounter Status: Acute Assessment and Plan: -pt was up to BR with n/v, she was being assisted by staff when she had fall from toilet striking her head on ground -continue ICE therapy -initiate fall precautions Plan Continue home medications: VTE Prophylaxis: Enoxaparin DIET:regular Anticipated hospital stay: >2 days Code Status: Full Subjective Date/time seen: 11/06/23 12:37 Interval history: Chief Complaint: Patient brought to the ER for evaluation with syncopal episode at home Narrative: 68 year old white female with a PMHx: GERD, irritable bowel syndrome, vitamin-D deficiency, and history hyperlipidemia 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 Presented to the emergency room with complaint of feeling, tired and fatigued with headaches, myalgias, arthralgias, cough and T-max of 103? F couple of days ago, along with multiple episodes of vomiting as well. Patient reports she got up and took her dog out when she got lightheaded and woke on side of the floor.? She was not sure if she hit her head or not. Patient denies any anticoagulation medication, but has been taken some aspirin for her symptoms.? EMS was called and she was brought to the ER for evaluation, ED workup revealed: + influenza A with hypotension and dehydration. She was given Tamiflu started on IV hydration which helped with her symptoms.? No evidence of any intracranial bleeding on CT scan of the head.? Admitted for medical management, flu medications, IV hydration and close monitoring. Interval history: 11/05/2023 Patient seen this morning, son is by the bedside
[2023-11-07] VITALS (12 sets, daily range): BP systolic 105–162; BP diastolic 58–84; PULSE 61–90; RESP 17–19; TEMP 36.2–36.9; O2SAT 97–100
[2023-11-07 05:37] LABS: Basophils Percent Auto 0.4 % (0.2-1.2); Eosinophils Percent Auto 1.5 % (0-4.4); Hematocrit 35.2 % (37.0-47.0); Lymphocytes Absolute Auto 0.84 K/mm3 (0.9-3.2); Lymphocytes Percent Auto 31.7 % (18.3-44.2); Mean Corpuscular HGB Conc 34.1 g/dl (32-36); Mean Corpuscular Hemoglobin 28.9 pg (26-34); Mean Corpuscular Volume 84.8 fl (80-100); Mean Platelet Volume 9.1 fl (7.4-10.4); Monocytes Absolute Auto 0.4 K/mm3 (0.1-0.6); Monocytes Percent Auto 13.2 % (2.6-8.5); Neutrophils Absolute Auto 1.4 K/mm3 (1.3-6.7); Neutrophils Percent Auto 53.2 % (45.5-73.1); Platelet Count Result 195 k/mm3 (150-375); Red Blood Count 4.15 M/mm3 (4.2-5.4); White Blood Count 2.7 K/mm3 (4.5-10.0)
[2023-11-07 05:59] LABS: Alanine Aminotransferase 30 U/L (6-35); Albumin Level 3.3 g/dL (3.5-5.1); Alkaline Phosphatase 48 U/L (38-126); Anion Gap 5 mmol/L (8-16); Aspartate Amino Transferase 31 U/L (14-36); Bilirubin,Total 0.7 mg/dL (0.2-1.3); Blood Urea Nitrogen 5 mg/dL (7-17); Calcium 8.4 mg/dL (8.4-10.2); Carbon Dioxide 29 mmol/L (22-30); Chloride 104 mmol/L (98-107); Estimated CRCL calculation 72 ml/min; Estimated Glomerular Filt Rate > 60; Glucose 104 mg/dL (65-110); Potassium 3.1 mmol/L (3.4-5.0); Sodium 138 mmol/L (137-145)
[2023-11-07] MEDS: OSELTAMIVIR PHOSPHATE 30 MG CAPSULE PO ×2 (06:51→18:04)
[2023-11-07] MEDS: LACTATED RINGERS 1,000 ML 125 ML IV CONT (06:54)
[2023-11-07] MEDS: POTASSIUM CHLORIDE INJ 40 MEQ in SODIUM CHLORIDE 0.9% IV 500 ML 130 MEQ IVPB (09:17)
[2023-11-07] MEDS: CALCIUM CARBONATE (TUMS) 500 MG (200 MG ELEMENTAL) 400 MG PO (09:23)
[2023-11-07] MEDS: PANTOPRAZOLE 40 MG TABLET PO (09:24)
[2023-11-07] MEDS: SIMVASTATIN 20 MG TABLET 40 MG PO (09:25)
[2023-11-07] MEDS: FLUTICASONE PROPIONATE 0.05% NA SPR 16 GM BTL (*BKC) 1 SPRAY NASAL ×2 (09:31→20:46)
[2023-11-07] MEDS: ENOXAPARIN 40 MG/0.4 ML SYRINGE SUB-Q (09:32)
[2023-11-07] MEDS: ONDANSETRON INJ 4 MG/2 ML VIAL IV PUSH (09:36)
[2023-11-07] MEDS: LORazepam INJ (*CRX) 2 MG/ML VIAL 0.5 MG IV PUSH (14:14)
[2023-11-07] MEDS: METOCLOPRAMIDE HCL INJ 10 MG/2 ML VIAL IV PUSH (14:14)
[2023-11-07] MEDS: METOCLOPRAMIDE HCL INJ 10 MG/2 ML VIAL 5 MG IV PUSH (18:05)
--- NOTE | 2023-11-07 18:25 | PM.IMPN ---
Progress Note: A&P Assessment and Plan (1) Influenza A: Code(s): J10.1 - Influenza due to other identified influenza virus with other respiratory manifestations Status: Acute Assessment and Plan: -viral PCR is + influenza A -continue oseltamivir q12hrs -continue LR 125ml/hr q 8hr (2) Syncope and collapse: Onset Date: ~11/05/23 Code(s): R55 - Syncope and collapse Status: Acute Assessment and Plan: Patient with continued weakness -check echo in the a.m. -continue up with assistance -low potassium will give 40 mEq KCL IV -recheck labs in the a.m., if patient continues to have weakness may consider neuro consult (3) Intractable vomiting with nausea: Code(s): R11.2 - Nausea with vomiting, unspecified Status: Acute Assessment and Plan: -pt continues to c/o nausea - add metoclopramide 10mg once, then 5mg q6 hr for ongoing n/v -continue full liquid diet (4) Hyperlipidemia: Qualifiers: Hyperlipidemia type: unspecified Qualified Code(s): E78.5 - Hyperlipidemia, unspecified Code(s): E78.5 - Hyperlipidemia, unspecified Status: Acute Assessment and Plan: -continue home medication simvastatin (5) Crohn's colitis: Qualifiers: Digestive disease complication type: without complication Qualified Code(s): K50.10 - Crohn's disease of large intestine without complications Code(s): K50.10 - Crohn's disease of large intestine without complications Status: Acute Assessment and Plan: stable -initiate full liquid diet (6) Allergies: Qualifiers: Encounter type: initial encounter Qualified Code(s): T78.40XA - Allergy, unspecified, initial encounter Code(s): T78.40XA - Allergy, unspecified, initial encounter Status: Acute Assessment and Plan: -chronic -continue supportive therapy (7) Acute dehydration: Code(s): E86.0 - Dehydration Status: Acute Assessment and Plan: Monitor electrolytes closely -continue daily labs -monitor I&O (8) Vertigo: Code(s): R42 - Dizziness and giddiness Status: Acute Assessment and Plan: -up with assistance -check daily orthostatic vitals -PT eval and treat (9) Fall: Code(s): W19.XXXA - Unspecified fall, initial encounter Status: Acute Assessment and Plan: -pt was up to BR with n/v, she was being assisted by staff when she had fall from toilet striking her head on ground -continue ICE therapy -continue fall precautions Plan VTE Prophylaxis: Enoxaparin DIET:regular Anticipated hospital stay: >2 days Code Status: Full Subjective Date/time seen: 11/07/23 0930 Interval history: Chief Complaint: Patient brought to the ER for evaluation with syncopal episode at home Narrative: ?68 year old white female with a PMHx:? 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 Presented to the emergency room with complaint of feeling, tired and fatigued with headaches, myalgias, arthralgias, cough and T-max of 103? F couple of days ago, along with multiple episodes of vomiting as well.? Patient reports she got up and took her dog out when she got lightheaded and woke on side of the floor.? She was not sure if she hit her head or not.? Patient denies any anticoagulation medication, but has been taken some aspirin for her symptoms.? EMS was called and she was brought to the ER for evaluation, ED workup revealed:??+ influenza A with hypotension and dehydration. She was given Tamiflu started on IV hydration which helped with her symptoms.? No evidence of any intracranial bleeding on CT scan of the head.? Admitted for medical management, flu medications, IV hydration and close monitoring. Interval history: 11/05/2023 Patient seen this morning, son is
[2023-11-07] MEDS: MECLIZINE HCL 12.5 MG TABLET PO (20:44)
[2023-11-08] VITALS (14 sets, daily range): BP systolic 112–154; BP diastolic 59–78; PULSE 64–81; RESP 16–18; TEMP 36.1–36.8; O2SAT 96–99
[2023-11-08 05:37] LABS: Basophils Percent Auto 0.6 % (0.2-1.2); Eosinophils Absolute Auto 0.1 K/mm3 (0-0.3); Eosinophils Percent Auto 1.5 % (0-4.4); Hematocrit 38.2 % (37.0-47.0); Hemoglobin 13.1 g/dL (12.0-15.0); Immature Granulocyte Absolute 0.01 K/mm3 (0.00-0.031); Immature Granulocyte Percent A 0.3 % (0-0.5); Lymphocytes Absolute Auto 1.06 K/mm3 (0.9-3.2); Lymphocytes Percent Auto 32.5 % (18.3-44.2); Mean Corpuscular HGB Conc 34.3 g/dl (32-36); Mean Corpuscular Hemoglobin 28.7 pg (26-34); Mean Corpuscular Volume 83.6 fl (80-100); Mean Platelet Volume 8.8 fl (7.4-10.4); Monocytes Absolute Auto 0.4 K/mm3 (0.1-0.6); Monocytes Percent Auto 10.7 % (2.6-8.5); Neutrophils Absolute Auto 1.8 K/mm3 (1.3-6.7); Neutrophils Percent Auto 54.4 % (45.5-73.1); Platelet Count Result 234 k/mm3 (150-375); Red Blood Count 4.57 M/mm3 (4.2-5.4); Red Cell Distribution Width 11.9 % (11.5-14.5); White Blood Count 3.3 K/mm3 (4.5-10.0)
[2023-11-08 05:57] LABS: Alanine Aminotransferase 52 U/L (6-35); Albumin Level 3.9 g/dL (3.5-5.1); Alkaline Phosphatase 53 U/L (38-126); Anion Gap 6 mmol/L (8-16); Aspartate Amino Transferase 63 U/L (14-36); Blood Urea Nitrogen 7 mg/dL (7-17); Calcium 8.9 mg/dL (8.4-10.2); Carbon Dioxide 28 mmol/L (22-30); Chloride 104 mmol/L (98-107); Estimated CRCL calculation 72 ml/min; Estimated Glomerular Filt Rate > 60; Glucose 101 mg/dL (65-110); Sodium 138 mmol/L (137-145)
[2023-11-08 06:03] LABS: Potassium 3.3 mmol/L (3.4-5.0)
[2023-11-08] MEDS: METOCLOPRAMIDE HCL INJ 10 MG/2 ML VIAL 5 MG IV PUSH ×4 (06:58→23:55)
[2023-11-08] MEDS: OSELTAMIVIR PHOSPHATE 30 MG CAPSULE PO ×2 (06:58→17:12)
--- NOTE | 2023-11-08 08:00 | ECHO_ITS ---
Patient Info Name: Gillian Smith Age: 68 years : 1955 Gender: Female Ht: 64 in Wt: 160 lbs BSA: 1.83 m? BP: 135 / 78 mmHg HR: 81 bpm Heart Rhythm: Sinus Rhythm Exam Date: 11/08/2023 9:03 AM Admit Date: 11/06/2023 Exam Location: Echo Lab Patient Status: Inpatient Exam Type: CA echo doppler color flow Technical Quality: Good Auto Glass Installer: Haily Edwards RDCS Ordering Physician: Marlen Galan APRN Attending Provider: Lane Morales MD Referring Physician: Adama PICKERING; Study Info Indications Code Description weakness Procedure(s) Complete two-dimensional, color flow and Doppler transthoracic echocardiogram is performed. Summary 1. Complete two-dimensional, color flow and Doppler transthoracic echocardiogram is performed. 2. Left ventricular chamber dimension is normal. 3. Left ventricular systolic function is normal, estimated at 60-65%. 4. There is mildly increased left ventricular wall thickness. 5. The left ventricular diastolic function is grade I diastolic dysfunction. 6. Right ventricular chamber dimension is mildly enlarged. 7. Right ventricular systolic function is normal. 8. Right atrial chamber dimension is mildly enlarged. 9. There is trace mitral valve regurgitation. 10. There is trace tricuspid valve regurgitation. Left Ventricle Left ventricular chamber dimension is normal. Left ventricular systolic function is normal, estimated at 60-65%. There is mildly increased left ventricular wall thickness. The left ventricular diastolic function is grade I diastolic dysfunction. Right Ventricle Right ventricular chamber dimension is mildly enlarged. Right ventricular systolic function is normal. Left Atria Left atrial chamber dimension is normal. Right Atria Right atrial chamber dimension is mildly enlarged. Atrial Septum Intact interatrial septum visualized by color flow imaging. Aortic Valve The aortic valve is trileaflet. There is no aortic valve stenosis. There is no aortic valve regurgitation. There is mild aortic valve calcification. Mitral Valve There is trace mitral valve regurgitation. The mitral valve annulus is mildly calcified. Tricuspid Valve There is trace tricuspid valve regurgitation. Pulmonic Valve The pulmonic valve is not well visualized. Aorta The aortic root size at the sinus of Valsalva is normal. Inferior Vena Cava Normal inferior vena cava with >50% collapse upon inspiration consistent with normal right atrial pressure, 3 mmHg. Pericardium/Pleural There is no pericardial effusion. Ventricles Name Value Normal Name Value Normal LV Dimensions 2D/MM IVS Diastolic Thickness (2D) 1.1 cm 0.6-1.0 LVOT Diameter 1.6 cm LVID Diastole (2D) 3.6 cm 3.8-5.2 LV Mass (2D Cubed) 124.05 g 67.00-162.00 LVIW Diastolic Thickness (2D) 1.1 cm 0.6-0.9 LV Mass Index (2D Cubed) 68 g/m? 43-95 LVID Systole (2D) 2.3 cm 2.2-3.5 Relative Wall Thickness (2D) 0.58 LV Fractional Shortening/Ejection Fraction 2D/MM LV Fractional Shortening (2D) 35 % 27-45 LV Diastolic Volume Index (BP MOD) 35 ml/m? 29-61 LV EF (2D Teicholz) 65 % 54-74 LV Systolic Volume (BP MOD) 23 ml 14-42 LV Diastolic Volume (4C MOD) 73 ml LV Systolic Volume Index (BP MOD) 13 ml/m? 8- 24 LV EF (4C MOD) 58 % LV EF (BP MOD) 63 % 54-74 LV Diastolic Volume (2C MOD) 54 ml LV Diastolic Length (4C) 7.2 cm LV EF (2C MOD) 67 % LV Systolic Length (4C) 6.2 cm LV Diastolic Volume (BP MOD) 63 ml 46-106 LV Stroke Volume (4C MOD) 43 ml Atria Name Value Normal Name Value Normal LA Dimensions LA Volume (4C A-L) 24 ml LA Volume (BP A-L) 31 ml RA Dimensions RA Area (4C) 12.1 cm? .18.0 Left Ventricular Outflow Tract Name Value Normal Name Value Normal LVOT 2D LVOT Diameter 1.6 cm LVOT Doppler LVOT Peak Gradient 4 mmHg
--- NOTE | 2023-11-08 09:20 | P.PNIM_ITS ---
Progress Note: A&P Assessment and Plan (1) Influenza A: Code(s): J10.1 - Influenza due to other identified influenza virus with other respiratory manifestations Status: Acute Assessment and Plan: -viral PCR is + influenza A -continue oseltamivir q12hrs - (2) Syncope and collapse: Onset Date: ~11/05/23 Code(s): R55 - Syncope and collapse Status: Acute Assessment and Plan: Patient with continued weakness -echo revealed . Left ventricular systolic function is normal, estimated at 60- 65%. -continue up with assistance (3) Intractable vomiting with nausea: Code(s): R11.2 - Nausea with vomiting, unspecified Status: Acute Assessment and Plan: -pt continues to c/o nausea - add metoclopramide 10mg once, then 5mg q6 hr for ongoing n/v -advance diet as tolerated (4) Hyperlipidemia: Qualifiers: Hyperlipidemia type: unspecified Qualified Code(s): E78.5 - Hyperlipidemia, unspecified Code(s): E78.5 - Hyperlipidemia, unspecified Status: Acute Assessment and Plan: -continue home medication simvastatin (5) Crohn's colitis: Qualifiers: Digestive disease complication type: without complication Qualified Code(s): K50.10 - Crohn's disease of large intestine without complications Code(s): K50.10 - Crohn's disease of large intestine without complications Status: Acute Assessment and Plan: stable Advance diet as tolerated (6) Allergies: Qualifiers: Encounter type: initial encounter Qualified Code(s): T78.40XA - Allergy, unspecified, initial encounter Code(s): T78.40XA - Allergy, unspecified, initial encounter Status: Acute Assessment and Plan: -chronic -continue supportive therapy (7) Acute dehydration: Code(s): E86.0 - Dehydration Status: Acute Assessment and Plan: Monitor electrolytes closely -continue daily labs -monitor I&O (8) Vertigo: Code(s): R42 - Dizziness and giddiness Status: Acute Assessment and Plan: -up with assistance -check daily orthostatic vitals -PT eval and treat (9) Fall: Code(s): W19.XXXA - Unspecified fall, initial encounter Status: Acute Assessment and Plan: -pt was up to BR with n/v, she was being assisted by staff when she had fall from toilet striking her head on ground -continue ICE therapy -continue fall precautions Plan VTE Prophylaxis: Enoxaparin DIET: Lactose-free Anticipated hospital stay: >2 days Code Status: Full Subjective Date/time seen: 11/08/23 09:20 Interval history: Chief Complaint: Patient brought to the ER for evaluation with syncopal episode at home Narrative: ?68 year old white female with a PMHx:? 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 Presented to the emergency room with complaint of feeling, tired and fatigued with headaches, myalgias, arthralgias, cough and T-max of 103? F couple of days ago, along with multiple episodes of vomiting as well.? Patient reports she got up and took her dog out when she got lightheaded and woke on side of the floor.? She was not sure if she hit her head or not.? Patient denies any anticoagulation medication, but has been taken some aspirin for her symptoms.? EMS was called and she was brought to the ER for evaluation,
[2023-11-08] MEDS: MECLIZINE HCL 12.5 MG TABLET PO ×4 (09:23→20:09)
[2023-11-08] MEDS: CALCIUM CARBONATE (TUMS) 500 MG (200 MG ELEMENTAL) 400 MG PO (09:23)
[2023-11-08] MEDS: ENOXAPARIN 40 MG/0.4 ML SYRINGE SUB-Q (09:23)
[2023-11-08] MEDS: SIMVASTATIN 20 MG TABLET 40 MG PO (09:23)
[2023-11-08] MEDS: PANTOPRAZOLE 40 MG TABLET PO (09:24)
[2023-11-08] MEDS: FLUTICASONE PROPIONATE 0.05% NA SPR 16 GM BTL (*BKC) 1 SPRAY NASAL ×2 (09:25→20:08)
[2023-11-08 10:42] LABS: Magnesium 2.1 mg/dL (1.6-2.3); Phosphorus 4.4 mg/dL (2.5-4.5)
--- NOTE | 2023-11-08 13:49 | PCDIET ---
Nutrition screen. Spoke with patient today, she states to lactose allergy. Diet order: Lactose free. Tolerated lunch today and was able to drink 100% of full liquids for breakfast. She does not drink any diet supplements at home and is not interested in them as she states, they don't set will with me. Agree with diet orders at this time. No further nutritional interventions needed at this time.
[2023-11-08] MEDS: POTASSIUM CHLORIDE INJ 40 MEQ in SODIUM CHLORIDE 0.9% IV 500 ML 130 MEQ IVPB (17:10)
[2023-11-09] VITALS (12 sets, daily range): BP systolic 141–153; BP diastolic 59–78; PULSE 62–92; RESP 16–18; TEMP 36.4–36.7; O2SAT 97–99
[2023-11-09] MEDS: METOCLOPRAMIDE HCL INJ 10 MG/2 ML VIAL 5 MG IV PUSH ×3 (05:20→17:48)
[2023-11-09] MEDS: OSELTAMIVIR PHOSPHATE 30 MG CAPSULE PO (05:21)
[2023-11-09 05:39] LABS: Basophils Percent Auto 0.5 % (0.2-1.2); Eosinophils Absolute Auto 0.1 K/mm3 (0-0.3); Eosinophils Percent Auto 1.8 % (0-4.4); Hematocrit 35.5 % (37.0-47.0); Hemoglobin 12.3 g/dL (12.0-15.0); Immature Granulocyte Absolute 0.02 K/mm3 (0.00-0.031); Immature Granulocyte Percent A 0.5 % (0-0.5); Lymphocytes Absolute Auto 1.17 K/mm3 (0.9-3.2); Lymphocytes Percent Auto 30.2 % (18.3-44.2); Mean Corpuscular HGB Conc 34.6 g/dl (32-36); Mean Corpuscular Hemoglobin 28.9 pg (26-34); Mean Corpuscular Volume 83.3 fl (80-100); Monocytes Absolute Auto 0.4 K/mm3 (0.1-0.6); Neutrophils Absolute Auto 2.2 K/mm3 (1.3-6.7); Platelet Count Result 240 k/mm3 (150-375); Red Blood Count 4.26 M/mm3 (4.2-5.4); Red Cell Distribution Width 11.9 % (11.5-14.5); White Blood Count 3.9 K/mm3 (4.5-10.0)
[2023-11-09 05:54] LABS: Alanine Aminotransferase 99 U/L (6-35); Albumin Level 3.7 g/dL (3.5-5.1); Alkaline Phosphatase 52 U/L (38-126); Anion Gap 6 mmol/L (8-16); Aspartate Amino Transferase 103 U/L (14-36); Blood Urea Nitrogen 7 mg/dL (7-17); Calcium 8.6 mg/dL (8.4-10.2); Carbon Dioxide 25 mmol/L (22-30); Chloride 107 mmol/L (98-107); Estimated CRCL calculation 72 ml/min; Estimated Glomerular Filt Rate > 60; Glucose 106 mg/dL (65-110); Potassium 3.6 mmol/L (3.4-5.0); Sodium 138 mmol/L (137-145)
[2023-11-09 05:57] LABS: Phosphorus 3.5 mg/dL (2.5-4.5)
[2023-11-09] MEDS: ENOXAPARIN 40 MG/0.4 ML SYRINGE SUB-Q (08:22)
[2023-11-09] MEDS: MECLIZINE HCL 12.5 MG TABLET PO ×4 (08:23→20:03)
[2023-11-09] MEDS: CALCIUM CARBONATE (TUMS) 500 MG (200 MG ELEMENTAL) 400 MG PO (08:23)
[2023-11-09] MEDS: SIMVASTATIN 20 MG TABLET 40 MG PO (08:23)
[2023-11-09] MEDS: CHOLECALCIFEROL 1,000 UNITS TABLET 2000 UNITS PO (08:23)
[2023-11-09] MEDS: PANTOPRAZOLE 40 MG TABLET PO (08:23)
[2023-11-09] MEDS: FLUTICASONE PROPIONATE 0.05% NA SPR 16 GM BTL (*BKC) 1 SPRAY NASAL ×2 (08:25→20:03)
--- NOTE | 2023-11-09 16:15 | PM.IMPN ---
Progress Note: A&P Assessment and Plan (1) Influenza A: Code(s): J10.1 - Influenza due to other identified influenza virus with other respiratory manifestations Status: Acute Assessment and Plan: -viral PCR is + influenza A -continue oseltamivir q12hrs - (2) Syncope and collapse: Onset Date: ~11/05/23 Code(s): R55 - Syncope and collapse Status: Acute Assessment and Plan: Patient with continued weakness -echo revealed . Left ventricular systolic function is normal, estimated at 60-65%. -continue up with assistance (3) Intractable vomiting with nausea: Code(s): R11.2 - Nausea with vomiting, unspecified Status: Acute Assessment and Plan: -pt continues to c/o nausea - add metoclopramide 10mg once, then 5mg q6 hr for ongoing n/v -advance diet as tolerated (4) Hyperlipidemia: Qualifiers: Hyperlipidemia type: unspecified Qualified Code(s): E78.5 - Hyperlipidemia, unspecified Code(s): E78.5 - Hyperlipidemia, unspecified Status: Acute Assessment and Plan: -continue home medication simvastatin (5) Crohn's colitis: Qualifiers: Digestive disease complication type: without complication Qualified Code(s): K50.10 - Crohn's disease of large intestine without complications Code(s): K50.10 - Crohn's disease of large intestine without complications Status: Acute Assessment and Plan: stable Advance diet as tolerated (6) Allergies: Qualifiers: Encounter type: initial encounter Qualified Code(s): T78.40XA - Allergy, unspecified, initial encounter Code(s): T78.40XA - Allergy, unspecified, initial encounter Status: Acute Assessment and Plan: -chronic -continue supportive therapy (7) Acute dehydration: Code(s): E86.0 - Dehydration Status: Acute Assessment and Plan: Monitor electrolytes closely -continue daily labs -monitor I&O (8) Vertigo: Code(s): R42 - Dizziness and giddiness Status: Acute Assessment and Plan: -up with assistance -check daily orthostatic vitals -PT eval and treat (9) Fall: Code(s): W19.XXXA - Unspecified fall, initial encounter Status: Acute Assessment and Plan: -pt was up to BR with n/v, she was being assisted by staff when she had fall from toilet striking her head on ground -continue ICE therapy -continue fall precautions Plan VTE Prophylaxis: Enoxaparin DIET: Lactose-free Anticipated hospital stay: >2 days 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 Presented to the emergency room with complaint of feeling, tired and fatigued with headaches, myalgias, arthralgias, cough and T-max of 103? F couple of days ago, along with multiple episodes of vomiting as well.? Patient reports she got up and took her dog out when she got lightheaded and woke on side of the floor.? She was not sure if she hit her head or not.? Patient denies any anticoagulation medication, but has been taken some aspirin for her symptoms.? EMS was called and she was brought to the ER for evaluation, ED workup revealed:??+ influenza A with hypotension and dehydration. She was given Tamiflu started on IV hydration which helped with her symptoms.? No evidence of any intracranial bleeding on CT scan of the head.? Admitted for medical management, flu medications, IV hydration and close monitoring. Interval history: 11/05/2023 Patient seen this morning, son is by the bedside she reports no o
[2023-11-09 17:10] LABS: Alanine Aminotransferase 113 U/L (6-35); Albumin Level 3.7 g/dL (3.5-5.1); Alkaline Phosphatase 54 U/L (38-126); Anion Gap 4 mmol/L (8-16); Aspartate Amino Transferase 107 U/L (14-36); Bilirubin,Total 0.7 mg/dL (0.2-1.3); Blood Urea Nitrogen 9 mg/dL (7-17); Calcium 8.6 mg/dL (8.4-10.2); Carbon Dioxide 26 mmol/L (22-30); Chloride 109 mmol/L (98-107); Estimated CRCL calculation 72 ml/min; Estimated Glomerular Filt Rate > 60; Glucose 96 mg/dL (65-110); Potassium 3.2 mmol/L (3.4-5.0); Sodium 139 mmol/L (137-145)
[2023-11-09 17:13] LABS: Basophils Percent Auto 0.8 % (0.2-1.2); Eosinophils Absolute Auto 0.1 K/mm3 (0-0.3); Eosinophils Percent Auto 1.6 % (0-4.4); Hematocrit 36.6 % (37.0-47.0); Hemoglobin 12.1 g/dL (12.0-15.0); Immature Granulocyte Absolute 0.02 K/mm3 (0.00-0.031); Immature Granulocyte Percent A 0.5 % (0-0.5); Lymphocytes Absolute Auto 1.22 K/mm3 (0.9-3.2); Lymphocytes Percent Auto 32.8 % (18.3-44.2); Mean Corpuscular HGB Conc 33.1 g/dl (32-36); Mean Corpuscular Hemoglobin 28.3 pg (26-34); Mean Corpuscular Volume 85.7 fl (80-100); Monocytes Absolute Auto 0.4 K/mm3 (0.1-0.6); Monocytes Percent Auto 10.5 % (2.6-8.5); Neutrophils Percent Auto 53.8 % (45.5-73.1); Platelet Count Result 272 k/mm3 (150-375); Red Blood Count 4.27 M/mm3 (4.2-5.4); Red Cell Distribution Width 11.9 % (11.5-14.5); White Blood Count 3.7 K/mm3 (4.5-10.0)
[2023-11-10] VITALS (10 sets, daily range): BP systolic 142–166; BP diastolic 65–77; PULSE 66–97; RESP 16–18; TEMP 36.4–36.8; O2SAT 96–99
[2023-11-10] MEDS: METOCLOPRAMIDE HCL INJ 10 MG/2 ML VIAL 5 MG IV PUSH ×3 (06:15→11:55)
[2023-11-10 06:18] LABS: Basophils Percent Auto 0.7 % (0.2-1.2); Eosinophils Absolute Auto 0.1 K/mm3 (0-0.3); Eosinophils Percent Auto 2.3 % (0-4.4); Hematocrit 35.3 % (37.0-47.0); Hemoglobin 11.8 g/dL (12.0-15.0); Immature Granulocyte Absolute 0.05 K/mm3 (0.00-0.031); Immature Granulocyte Percent A 1.2 % (0-0.5); Lymphocytes Absolute Auto 1.16 K/mm3 (0.9-3.2); Lymphocytes Percent Auto 26.9 % (18.3-44.2); Mean Corpuscular HGB Conc 33.4 g/dl (32-36); Mean Corpuscular Hemoglobin 28.6 pg (26-34); Mean Corpuscular Volume 85.5 fl (80-100); Mean Platelet Volume 9.1 fl (7.4-10.4); Monocytes Absolute Auto 0.4 K/mm3 (0.1-0.6); Monocytes Percent Auto 9.5 % (2.6-8.5); Neutrophils Absolute Auto 2.6 K/mm3 (1.3-6.7); Neutrophils Percent Auto 59.4 % (45.5-73.1); Platelet Count Result 278 k/mm3 (150-375); Red Blood Count 4.13 M/mm3 (4.2-5.4); Red Cell Distribution Width 11.9 % (11.5-14.5); White Blood Count 4.3 K/mm3 (4.5-10.0)
[2023-11-10 06:31] LABS: Alanine Aminotransferase 95 U/L (6-35); Albumin Level 3.4 g/dL (3.5-5.1); Alkaline Phosphatase 52 U/L (38-126); Anion Gap 7 mmol/L (8-16); Aspartate Amino Transferase 74 U/L (14-36); Bilirubin,Total 0.9 mg/dL (0.2-1.3); Blood Urea Nitrogen 8 mg/dL (7-17); Calcium 8.7 mg/dL (8.4-10.2); Carbon Dioxide 25 mmol/L (22-30); Chloride 107 mmol/L (98-107); Estimated CRCL calculation 85 ml/min; Estimated Glomerular Filt Rate > 60; Glucose 101 mg/dL (65-110); Phosphorus 3.3 mg/dL (2.5-4.5); Potassium 3.3 mmol/L (3.4-5.0); Sodium 139 mmol/L (137-145)
[2023-11-10] MEDS: PANTOPRAZOLE 40 MG TABLET PO (08:08)
[2023-11-10] MEDS: MECLIZINE HCL 12.5 MG TABLET PO ×3 (08:08→16:55)
[2023-11-10] MEDS: CHOLECALCIFEROL 1,000 UNITS TABLET 2000 UNITS PO (08:08)
[2023-11-10] MEDS: SIMVASTATIN 20 MG TABLET 40 MG PO (08:08)
[2023-11-10] MEDS: CALCIUM CARBONATE (TUMS) 500 MG (200 MG ELEMENTAL) 400 MG PO (08:08)
[2023-11-10] MEDS: ENOXAPARIN 40 MG/0.4 ML SYRINGE SUB-Q (08:09)
[2023-11-10] MEDS: FLUTICASONE PROPIONATE 0.05% NA SPR 16 GM BTL (*BKC) 1 SPRAY NASAL (08:09)
--- NOTE | 2023-11-10 08:22 | PM.IMPN ---
Progress Note: A&P Assessment and Plan (1) Influenza A: Code(s): J10.1 - Influenza due to other identified influenza virus with other respiratory manifestations Status: Acute Assessment and Plan: -viral PCR is + influenza A -continue oseltamivir q12hrs - (2) Syncope and collapse: Onset Date: ~11/05/23 Code(s): R55 - Syncope and collapse Status: Acute Assessment and Plan: Patient with continued weakness -echo revealed . Left ventricular systolic function is normal, estimated at 60-65%. -continue up with assistance ECHO: Summary 1. Complete two-dimensional, color flow and Doppler transthoracic echocardiogram is performed. 2. Left ventricular chamber dimension is normal. 3. Left ventricular systolic function is normal, estimated at 60-65%. 4. There is mildly increased left ventricular wall thickness. 5. The left ventricular diastolic function is grade I diastolic dysfunction. 6. Right ventricular chamber dimension is mildly enlarged. 7. Right ventricular systolic function is normal. 8. Right atrial chamber dimension is mildly enlarged. 9. There is trace mitral valve regurgitation. 10. There is trace tricuspid valve regurgitation. MRI brain: No acute intracranial process. Prominent right parietal vessel, likely representing a developmental venous anomaly versus prominent cortical vein (3) Intractable vomiting with nausea: Code(s): R11.2 - Nausea with vomiting, unspecified Status: Acute Assessment and Plan: -pt continues to c/o nausea - add metoclopramide 10mg once, then 5mg q6 hr for ongoing n/v -advance diet as tolerated 11/10/23: Improved (4) Hyperlipidemia: Qualifiers: Hyperlipidemia type: unspecified Qualified Code(s): E78.5 - Hyperlipidemia, unspecified Code(s): E78.5 - Hyperlipidemia, unspecified Status: Acute Assessment and Plan: -continue home medication simvastatin (5) Crohn's colitis: Qualifiers: Digestive disease complication type: without complication Qualified Code(s): K50.10 - Crohn's disease of large intestine without complications Code(s): K50.10 - Crohn's disease of large intestine without complications Status: Acute Assessment and Plan: stable Advance diet as tolerated (6) Allergies: Qualifiers: Encounter type: initial encounter Qualified Code(s): T78.40XA - Allergy, unspecified, initial encounter Code(s): T78.40XA - Allergy, unspecified, initial encounter Status: Acute Assessment and Plan: -chronic -continue supportive therapy (7) Acute dehydration: Code(s): E86.0 - Dehydration Status: Acute Assessment and Plan: Monitor electrolytes closely -continue daily labs -monitor I&O (8) Vertigo: Code(s): R42 - Dizziness and giddiness Status: Acute Assessment and Plan: -up with assistance -check daily orthostatic vitals -PT eval and treat (9) Fall: Code(s): W19.XXXA - Unspecified fall, initial encounter Status: Acute Assessment and Plan: -pt was up to BR with n/v, she was being assisted by staff when she had fall from toilet striking her head on ground -continue ICE therapy -continue fall precautions (10) Elevated liver enzymes: Code(s): R74.8 - Abnormal levels of other serum enzymes Status: Acute Plan Acute and principal conditions 1. Influenza A infection. s/p Oseltamivir 2. Nausea and vomiting. Improved 3. Dehydration. Improved 4. Syncope. Stable 5. Elevated liver enzyme. maybe 2/2 acute illness 6. Leucopenia. maybe 2/2 acute viral illness 7. Hypokalemia US Liver Replete and monitor K Chronic and stable conditions 1. Obesity. BMI 27. Diet and lifestyle modifications 2. Dyslipidemia. on Statin 3. Vertigo. 4. Crohn's disease VTE Prophylaxis: Enoxaparin Diet: Lactose-free Disposition. 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
[2023-11-10] MEDS: POTASSIUM CHLORIDE 20 MEQ PACKET (FOR LIQUID) 40 MEQ PO ×2 (08:49→16:54)
[2023-11-10 12:24] LABS: Anion Gap 5 mmol/L (8-16); Blood Urea Nitrogen 7 mg/dL (7-17); Carbon Dioxide 24 mmol/L (22-30); Chloride 109 mmol/L (98-107); Estimated CRCL calculation 72 ml/min; Estimated Glomerular Filt Rate > 60; Glucose 101 mg/dL (65-110); Potassium 3.9 mmol/L (3.4-5.0); Sodium 138 mmol/L (137-145)
--- NOTE | 2023-11-10 15:58 | PM.DS ---
DS: Admitting Diagnosis Discharge Date 11/10/23 Admitting Diagnosis 1. Influenza A infection 2. Syncope; Fall 3. DS: Discharge Diagnosis Discharge Diagnosis (1) Influenza A: Code(s): J10.1 - Influenza due to other identified influenza virus with other respiratory manifestations Status: Acute Assessment and Plan: -viral PCR is + influenza A -continue oseltamivir q12hrs - (2) Syncope and collapse: Onset Date: ~11/05/23 Code(s): R55 - Syncope and collapse Status: Acute Assessment and Plan: Patient with continued weakness -echo revealed . Left ventricular systolic function is normal, estimated at 60-65%. -continue up with assistance ECHO: Summary 1. Complete two-dimensional, color flow and Doppler transthoracic echocardiogram is performed. 2. Left ventricular chamber dimension is normal. 3. Left ventricular systolic function is normal, estimated at 60-65%. 4. There is mildly increased left ventricular wall thickness. 5. The left ventricular diastolic function is grade I diastolic dysfunction. 6. Right ventricular chamber dimension is mildly enlarged. 7. Right ventricular systolic function is normal. 8. Right atrial chamber dimension is mildly enlarged. 9. There is trace mitral valve regurgitation. 10. There is trace tricuspid valve regurgitation. MRI brain: No acute intracranial process. Prominent right parietal vessel, likely representing a developmental venous anomaly versus prominent cortical vein (3) Intractable vomiting with nausea: Code(s): R11.2 - Nausea with vomiting, unspecified Status: Acute Assessment and Plan: -pt continues to c/o nausea - add metoclopramide 10mg once, then 5mg q6 hr for ongoing n/v -advance diet as tolerated 11/10/23: Improved (4) Hyperlipidemia: Qualifiers: Hyperlipidemia type: unspecified Qualified Code(s): E78.5 - Hyperlipidemia, unspecified Code(s): E78.5 - Hyperlipidemia, unspecified Status: Acute Assessment and Plan: -continue home medication simvastatin (5) Crohn's colitis: Qualifiers: Digestive disease complication type: without complication Qualified Code(s): K50.10 - Crohn's disease of large intestine without complications Code(s): K50.10 - Crohn's disease of large intestine without complications Status: Acute Assessment and Plan: stable Advance diet as tolerated (6) Allergies: Qualifiers: Encounter type: initial encounter Qualified Code(s): T78.40XA - Allergy, unspecified, initial encounter Code(s): T78.40XA - Allergy, unspecified, initial encounter Status: Acute Assessment and Plan: -chronic -continue supportive therapy (7) Acute dehydration: Code(s): E86.0 - Dehydration Status: Acute Assessment and Plan: Monitor electrolytes closely -continue daily labs -monitor I&O (8) Vertigo: Code(s): R42 - Dizziness and giddiness Status: Acute Assessment and Plan: -up with assistance -check daily orthostatic vitals -PT eval and treat (9) Fall: Code(s): W19.XXXA - Unspecified fall, initial encounter Status: Acute Assessment and Plan: -pt was up to BR with n/v, she was being assisted by staff when she had fall from toilet striking her head on ground -continue ICE therapy -continue fall precautions (10) Elevated liver enzymes: Code(s): R74.8 - Abnormal levels of other serum enzymes Status: Acute (11) Nonalcoholic hepatosteatosis: Code(s): K76.0 - Fatty (change of) liver, not elsewhere classified Status: Acute Plan Acute and principal conditions 1. Influenza A infection. s/p Oseltamivir 2. Nausea and vomiting. Improved 3. Dehydration. Improved 4. Syncope. Stable 5. Elevated liver enzyme. maybe 2/2 acute illness 6. Leucopenia. maybe 2/2 acute viral illness 7. Hypokalemia US Liver Replete and monitor K C
== END 2023-11-10 17:45 | disposition home or self-care (01) | DRG 194 ==
LOC: ANHED 17:30 → ANH2MED 20:17
PROVIDERS: Emergency Medicine; Nurse Practitioner; Admitting Provider Family Medicine; Emergency Provider Student in an Organized Health Care Education/Training Program; PCP Internal Medicine; Visit Provider Internal Medicine
DX: J10.1 Influenza due to other identified influenza virus with other respiratory manifestations (principal); K50.10 Crohn's disease of large intestine without complications; R55 Syncope and collapse; H81.10 Benign paroxysmal vertigo, unspecified ear; E78.5 Hyperlipidemia, unspecified; K76.0 Fatty (change of) liver, not elsewhere classified; T78.40XA Allergy, unspecified, initial encounter; E86.0 Dehydration; I95.9 Hypotension, unspecified; D64.9 Anemia, unspecified; K21.9 Gastro-esophageal reflux disease without esophagitis; E87.6 Hypokalemia; Z20.822 Contact with and (suspected) exposure to COVID-19; Z85.42 Personal history of malignant neoplasm of other parts of uterus; Z85.3 Personal history of malignant neoplasm of breast; Z85.828 Personal history of other malignant neoplasm of skin; Z85.820 Personal history of malignant melanoma of skin; Z90.710 Acquired absence of both cervix and uterus; Z90.722 Acquired absence of ovaries, bilateral
CPT/HCPCS: 36415; 70450; 70486; 70551; 71045; 71046; 72125; 73521; 76705; 80048; 80053; 83690; 83735; 83880; 84100; 84484; 85025; 85380; 87637; 93005; 93306; 96361; 96374; 97110; 97161; 97530; 99285; A9270; G0378; J1650; J2060; J2405; J2765; J3420; J3480; J7040; J7120

== ENCOUNTER 2024-09-07 12:41 | Outpatient (CLI) | payer OTHER, SELFPAY ==
[2024-09-07 13:08] LABS: Basophils Percent Auto 0.6 % (0.2-1.2); Eosinophils Absolute Auto 0.1 K/mm3 (0-0.3); Eosinophils Percent Auto 1.4 % (0-4.4); Hematocrit 40.7 % (37.0-47.0); Hemoglobin 13.5 g/dL (12.0-15.0); Immature Granulocyte Absolute 0.03 K/mm3 (0.00-0.031); Immature Granulocyte Percent A 0.5 % (0-0.5); Lymphocytes Absolute Auto 1.39 K/mm3 (0.9-3.2); Lymphocytes Percent Auto 22.2 % (18.3-44.2); Mean Corpuscular HGB Conc 33.2 g/dl (32-36); Mean Corpuscular Volume 87.3 fl (80-100); Mean Platelet Volume 9.1 fl (7.4-10.4); Monocytes Absolute Auto 0.5 K/mm3 (0.1-0.6); Monocytes Percent Auto 7.7 % (2.6-8.5); Neutrophils Absolute Auto 4.2 K/mm3 (1.3-6.7); Neutrophils Percent Auto 67.6 % (45.5-73.1); Platelet Count Result 276 k/mm3 (150-375); Red Blood Count 4.66 M/mm3 (4.2-5.4); Red Cell Distribution Width 12.7 % (11.5-14.5); White Blood Count 6.3 K/mm3 (4.5-10.0)
[2024-09-07 13:28] LABS: Alanine Aminotransferase 30 U/L (6-35); Albumin Level 4.5 g/dL (3.5-5.1); Alkaline Phosphatase 67 U/L (38-126); Anion Gap 4 mmol/L (4-12); Aspartate Amino Transferase 36 U/L (14-36); Bilirubin,Total 0.9 mg/dL (0.2-1.3); Blood Urea Nitrogen 13 mg/dL (7-17); Calcium 9.7 mg/dL (8.4-10.2); Carbon Dioxide 31 mmol/L (22-30); Chloride 106 mmol/L (98-107); Cholesterol 208 mg/dL (0-200); Estimated Glomerular Filt Rate > 60; Glucose 100 mg/dL (65-110); HDL Direct 49 mg/dL; Potassium 3.8 mmol/L (3.4-5.0); Sodium 141 mmol/L (137-145); Triglycerides 245 mg/dL (<150)
[2024-09-07 13:39] LABS: LDL Cholesterol Direct 113 mg/dL
[2024-09-07 13:57] LABS: Thyroid Stimulating Hormone 0.018 uIU/mL (0.465-4.680)
[2024-09-07 14:22] LABS: Free T4 Free Thyroxine 0.95 ng/dL (0.78-2.19); Vitamin D 25 Hydroxy 42.2 ng/mL
== END 2024-09-07 12:42 | disposition home or self-care (01) ==
LOC: ANHLAB 12:44
PROVIDERS: PCP Internal Medicine; Visit Provider Internal Medicine
DX: K21.9 Gastro-esophageal reflux disease without esophagitis (principal); E78.00 Pure hypercholesterolemia, unspecified; E55.9 Vitamin D deficiency, unspecified
CPT/HCPCS: 36415; 80053; 80061; 82306; 82607; 83735; 84439; 84443; 85025

== ENCOUNTER 2024-12-04 15:31 | Outpatient (CLI) | payer OTHER, SELFPAY ==
[2024-12-04 17:28] LABS: Add Urine Microscopic? YES; Appearance Urine Cloudy (Clear); Bacteria Urine None Seen /hpf; Bilirubin Urine Negative (Negative); Blood Urine Negative (Negative); Calcium Oxalate Crystals Urine Present /hpf; Color Urine Yellow (Yellow); Glucose Urine UA Negative (Negative); Ketones Urine Trace mg/dL (Negative); Leukocyte Esterase Ur Negative LEU/UL (Negative); Mucus Urine Present /lpf; Need Manual Microscopic Reviewed; Nitrate Urine Negative (Negative); Non Pathogenic Casts 0-2; Protein Urine Negative (Negative); Specific Grav Ur 1.024 (1.001-1.035); Squamous Epithelial Cell Urine Few /hpf (Few); Urobilinogen Urine 0.2 mg/dL (<2.0); WBC Urine 0-5 /hpf (0-3)
== END 2024-12-04 15:32 | disposition home or self-care (01) ==
LOC: ANHLAB 15:33
PROVIDERS: PCP Internal Medicine; Visit Provider Internal Medicine
DX: N39.0 Urinary tract infection, site not specified (principal)
CPT/HCPCS: 81001; 87086

== ENCOUNTER 2025-03-08 09:31 | Outpatient (CLI) | payer OTHER, SELFPAY ==
--- OUTSIDE RECORDS SUMMARY | 2025-03-08 09:34 | XMS_ITS | Encounter Summary ---
Author Organization [facility] Address [address] [facility] [place] [address] Care Team Providers Care Director Electrical Engineering Name Role Phone Julian Chacon MD Primary Care Provider [phone] Encounter Details Date Type Department Care Team (Late st Contact Info) Description 10/19/2018 Lab Requisition [facility] Care DermPath Lab [address] [facility], [place] [address] Zaid Adrian MD [address] [place] [address] Social History Tobacco Use Types Packs/Day Years Used Date Smoking Tobacco: Never Assessed Comments Unknown Sex and Gender Information Value Date Recorded Sex Assigned at Not on file Legal Sex Female 6:12 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 Gender Identity Not on file Sexual Orientation Not on file documented as of this encounter Plan of Treatment Not on file documented as of this encounter Procedures Procedure Name Priority Date/Time Associated Diagnosis Comments DERMATOPATHOLOGY Routine 10/18/2018 12:0 0 AM SEAL 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 documented in this encounter Results * DERMATOPATHOLOGY (10/18/2018 12:00 AM SEAL 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) Case Report Dermatopathology Report Case: [id number] Authorizing Provider: Zaid Adrian MD Collected: 10/18/2018 12:00 AM Pathologist: Shilpa Jasso MD Received: 10/19/2018 12:18 PM Specimen: Skin, left upper lat back 9 1:18 PM [facility] DERMATOPATHOLOGY LABORATORY Final Diagnosis Specimen A. SKIN, left upper lat back: HEMANGIOMA (D18.01) 9 1:18 PM [facility] DERMATOPATHOLOGY LABORATORY at [address] SEAL 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 Clinical History R/O Olmedo's vs SBCC vs telangiectasia. 9 1:18 PM [facility] DERMATOPATHOLOGY LABORATORY Gross Description Specimen A: Received is one formalin filled container labeled with the patient's name and designated left upper lat back. The specimen consists of a shave biopsy measuring [id number]. Jar 0. 1:18 PM [facility] DERMATOPATHOLOGY LABORATORY Microscopic Description Specimen A. SKIN, left upper lat back: In the dermis, there are dilated vascular spaces surrounded by widely spaced endothelial cells. 1:18 PM [facility] DERMATOPATHOLOGY LABORATORY Disclaimer An external and internal positive and negative controls are appropriate for the histochemical, immunohistochemical and immunofluorescence stain(s) in this case (if any), except where stated explicitly. The performance characteristics of the stain(s) cited in this report were developed and its performance characteristic determined by the Dermatopathology Laboratory at [facility], directed by Dr. Lauren Kathleen. These tests need not be, and therefore are not, approved by the [place] Food and Drug Administration. The tests are used for clinical purposes. Billing Codes Specimen Charges Stain Charges 16547 1 9 1:18 PM [facility] DERMATOPATHOLOGY LABORATORY Embedded Images 1:18 PM [facility] DERMATOPATHOLOGY LABORATORY Pathology/Cytolog y TISSUE SPECIMEN FROM SKIN / Unknown 10/18/2018 10/19/2018 12:18 PM [facility] us Zaid Adrian MD LAB - PATHOLOGY/CYTOLOGY ORD ERABLES Final Result DERMATOPATHOLOGY LABORATORY [facility] - Department of Dermatology [address] [facility], [address]th [place] [address], [facility] [phone] documented in this encounter Visit Diagnoses Not on filedocumented in this encounter Care Teams Director Electrical Engineering Relationship Specialty Start Date End Date Julian Chacon MD [address] [address] [address] [place] [phone] PCP - General Internal Medicine 05/07/17 documented as of this encounter
--- OUTSIDE RECORDS SUMMARY | 2025-03-08 09:34 | XMS_ITS | Clinical Summary ---
Author Organization [facility] [employer] Address [address] [facility] [place] [address] Care Team Providers Care Construction Administrative Assistant Name Role Phone Julian Chacon MD Primary Care Provider [phone] Source Comments [facility] [employer]),non-owned Affiliates and Associated Physician Practices is amultiple site organization consisting of ambulatory clinics and hospital sitesin [place], [place], [place] and [place]. This disclosure is being madepursuant to the Care Everywhere program and may not contain all information available regarding this patient. 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 EXTERMINATION INSPECTOR Gender Identity Not on file Sexual Orientation Not on file Plan of Treatment Health Maintenance Due Date Last Done Comments BONE DENSITY TESTING 1955 COLOGUARD (AGES 45-75) - COL ON CA SCREENING 1955 COLON MONITORING 1953 COLONOSCOPY - COLON CA SCREENING 1953 CT COLONOGRAPHY - COLON CA SCREENING 1955 Colorectal Cancer Screening 1955 FIT - COLON CA SCREENING 1955 FLEX SIG - COLON CA SCREENING 1955 LIPID TESTING 1955 MAMMOGRAM 1955 HEPATITIS C SCREENING 02/26/1971 PNEUMOCOCCAL VACCINE 50+ (1 of 1 - PCV) 2003 ZOSTER VACCINE (1 of 2) 2003 COVID-19 VACCINE (1 - 2023-2 5 season) 2024 DEPRESSION SCREENING 10/03/2024 DTAP/TDAP/TD VACCINES (2 - T d or Tdap) 05/07/2027 05/07/2017 Respiratory Syncytial Virus (RSV) Vaccine Pt: or over 60 yrs (1 - 1-dose 75+ series) 2028 HEPATITIS B VACCINE Aged Out No longe r eligible based on patient's age to complete this topic HIB VACCINE Aged Out No longer eligi ble based on patient's age to complete this topic HPV VACCINE Aged Out No longer eligi ble based on patient's age to complete this topic MENINGOCOCCAL (Group B) VACC INE SHARED DECISION-MAKING Aged Out No longer eligibl e based on patient's age to complete this topic MENINGOCOCCAL GROUPS A/C/Y/W VACCINE Aged Out No longer eligible b ased on patient's age to complete this topic Insurance [facility] Care Teams Construction Administrative Assistant Relationship Specialty Start Date End Date Julian Chacon MD [address] [place] [phone] PCP - General Internal Medicine 05/07/17
[2025-03-08 12:12] LABS: Hematocrit 39.8 % (37.0-47.0); Hemoglobin 13.1 g/dL (12.0-15.0); Mean Corpuscular HGB Conc 32.9 g/dl (32-36); Mean Corpuscular Volume 88.1 fl (80-100); Mean Platelet Volume 9.4 fl (7.4-10.4); Platelet Count Result 270 k/mm3 (150-375); Red Blood Count 4.52 M/mm3 (4.2-5.4); Red Cell Distribution Width 12.3 % (11.5-14.5); White Blood Count 6.1 K/mm3 (4.5-10.0)
[2025-03-08 12:36] LABS: Alanine Aminotransferase 29 U/L (6-35); Albumin Level 4.1 g/dL (3.5-5.1); Alkaline Phosphatase 77 U/L (38-126); Anion Gap 7 mmol/L (4-12); Aspartate Amino Transferase 47 U/L (14-36); Bilirubin,Total 0.7 mg/dL (0.2-1.3); Blood Urea Nitrogen 7 mg/dL (7-17); Calcium 9.5 mg/dL (8.4-10.2); Carbon Dioxide 29 mmol/L (22-30); Chloride 104 mmol/L (98-107); Cholesterol 211 mg/dL (0-200); Estimated Glomerular Filt Rate > 60; Glucose 100 mg/dL (65-110); HDL Direct 40 mg/dL; Potassium 3.9 mmol/L (3.4-5.0); Sodium 140 mmol/L (137-145); Total Protein 6.8 g/dL (6.3-8.2); Triglycerides 368 mg/dL (<150)
[2025-03-08 12:47] LABS: LDL Cholesterol Direct 96 mg/dL
[2025-03-08 12:58] LABS: Free T4 Free Thyroxine 0.86 ng/dL (0.78-2.19)
[2025-03-08 13:06] LABS: Thyroid Stimulating Hormone 0.076 uIU/mL (0.465-4.680)
== END 2025-03-08 09:32 | disposition home or self-care (01) ==
LOC: ANHGOSHLAB 09:32
PROVIDERS: PCP Internal Medicine; Visit Provider Internal Medicine
DX: K21.9 Gastro-esophageal reflux disease without esophagitis (principal); E78.00 Pure hypercholesterolemia, unspecified
CPT/HCPCS: 36415; 80053; 80061; 82607; 83735; 84439; 84443; 85027

== ENCOUNTER 2025-03-23 11:40 | Outpatient (CLI) | payer OTHER, SELFPAY ==
[2025-03-27 19:24] LABS: Fecal Fat, Ql NORMAL (NORMAL)
== END 2025-03-23 11:41 | disposition home or self-care (01) ==
LOC: ANHLAB 11:42
PROVIDERS: Visit Provider Nurse Practitioner Family
DX: R10.9 Unspecified abdominal pain (principal); R19.7 Diarrhea, unspecified; R11.2 Nausea with vomiting, unspecified
CPT/HCPCS: 82653; 82705; 83993; 87045; 87177; 87209; 87269; 87427; 87449; 87493

== ENCOUNTER 2025-04-04 01:26 | Day surgery (SDC) | payer OTHER, SELFPAY ==
[2025-03-15 14:54] VITALS: BMI 26.6
--- OUTSIDE RECORDS SUMMARY | 2025-04-04 01:29 | XMS_ITS | Clinical Summary ---
Author Organization [facility] [employer] Address [address] [facility] [place] [address] Care Team Providers Care Dry Clipper Tender Name Role Phone Julian Chacon MD Primary Care Provider [phone] Source Comments [facility] [employer],non-owned Affiliates and Associated Physician Practices is amultiple site organization consisting of ambulatory clinics and hospital sitesin [place], [place], [place] and [place]. This disclosure is being madepursuant to the Care Everywhere program and may not contain all information available regarding this patient. 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
--- OUTSIDE RECORDS SUMMARY | 2025-04-04 01:29 | XMS_ITS | Encounter Summary ---
Author Organization [facility] Address [address] [facility] [place] [address] Care Team Providers Care Medical Scheduler Name Role Phone Julian Chacon MD Primary Care Provider [phone] Encounter Details Date Type Department Care Team (Late st Contact Info) Description 10/19/2018 Lab Requisition [facility] Care DermPath Lab [address] [facility] [place] [address] Zaid Adrian MD [address] [place] [address] Social History Tobacco Use Types Packs/Day Years Used Date Smoking Tobacco: Never Assessed Comments Unknown Sex and Gender Information Value Date Recorded Sex Assigned at Not on file Legal Sex 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 Gender Identity Not on file Sexual Orientation Not on file documented as of this encounter Plan of Treatment Not on file documented as of this encounter Procedures Procedure Name Priority Date/Time Associated Diagnosis Comments DERMATOPATHOLOGY Routine 10/18/2018 12:0 0 AM ELECTRON BEAM OPERATOR documented in this encounter Results * DERMATOPATHOLOGY (10/18/2018 12:00 AM ELECTRON BEAM OPERATOR) Case Report Dermatopathology Report Case: [id number] Authorizing Provider: Zaid Adrian MD Collected: 10/18/2018 12:00 AM Pathologist: Shilpa Jasso MD Received: 10/19/2018 12:18 PM Specimen: Skin, left upper lat back 9 1:18 PM [facility] DERMATOPATHOLOGY LABORATORY Final Diagnosis Specimen A. SKIN, left upper lat back: HEMANGIOMA (D18.01) 9 1:18 PM [facility] DERMATOPATHOLOGY LABORATORY at [address]18 ELECTRON BEAM OPERATOR Clinical History R/O Olmedo's vs SBCC vs telangiectasia. 9 1:18 PM [facility] DERMATOPATHOLOGY LABORATORY Gross Description Specimen A: Received is one formalin filled container labeled with the patient's name and designated left upper lat back. The specimen consists of a shave biopsy measuring [id number]. Jar 0. 1:18 PM [facility] DERMATOPATHOLOGY LABORATORY Microscopic Description Specimen A. SKIN, left upper lat back: In the dermis, there are dilated vascular spaces surrounded by widely spaced endothelial cells. 1:18 PM [facility] DERMATOPATHOLOGY LABORATORY Disclaimer An external and internal positive and negative controls are appropriate for the histochemical, immunohistochemical and immunofluorescence stain(s) in this case (if any), except where stated explicitly. The performance characteristics of the stain(s) cited in this report were developed and its performance characteristic determined by the Dermatopathology Laboratory at [facility], directed by Dr. Lauren Kathleen. These tests need not be, and therefore are not, approved by the [place] Food and Drug Administration. The tests are used for clinical purposes. Billing Codes Specimen Charges Stain Charges 74570 1 9 1:18 PM [facility] DERMATOPATHOLOGY LABORATORY Embedded Images 1:18 PM [facility] DERMATOPATHOLOGY LABORATORY Pathology/Cytolog y TISSUE SPECIMEN FROM SKIN / Unknown 10/18/2018 10/19/2018 12:18 PM [facility] us Zaid Adrian MD LAB - PATHOLOGY/CYTOLOGY ORD ERABLES Final Result DERMATOPATHOLOGY LABORATORY [facility] - Department of Dermatology [address] [facility], [address]th [place] [address], [facility] [phone] documented in this encounter Visit Diagnoses Not on filedocumented in this encounter Care Teams Medical Scheduler Relationship Specialty Start Date End Date Julian Chacon MD [address] [address] [address] [place] [phone] PCP - General Internal Medicine 05/07/17 documented as of this encounter
--- OUTSIDE RECORDS SUMMARY | 2025-04-04 01:29 | XMS_ITS | Patient Health Record ---
Author Organization [facility] Address [address] [place], [place] [id number] Care Team Providers Care Knot Saw Operator Name Role Phone HELADIO CABRERA Unavailable [phone] Julian Chacon Unavailable Unavailable Allergies Allergen (clinical drug ingredient) Drug/Non Drug Allergy documented on EMR Reaction Allergy Type Onset Date Status Iodine Unknown Drug Allergy 07/21/2022 active Reason For Referral No Information Medications Medication SIG (Take, Route, Frequency, Duration) Notes Start Date End Date Status Hyoscyamine Sulfate 0.125 MG TAKE 1 TABLET BY MOUTH FOUR TIMES DAILY NEEDED FOR DYSPEPSIA Oral; Duration: 30 Days Active Vital Signs Height-cm 162.56 cm 02/21/2025 Weight-kg 73.48 kg 02/21/2025 Height 64.00 in 02/21/2025 Weight 162 lbs 02/21/2025 BMI 27.8 kg/m2 02/21/2025 Encounters Encounter Location Date Provider Diagnosis [facility] [address] [place], [place] [phone] 02/21/2025 HELADIO CABRERA Hallux rigidus of right foot M20.21 and Pain in right foot M79.671 Assessments Encounter Date Diagnosis (ICD Code) Assessment Notes Treatment Notes Treatment Clinical Notes Section Notes 02/21/2025 Pain in right foot (ICD-10 - M79.671) 02/21/2025 Hallux rigidus of right foot (ICD-10 - M20.21) 02/21/2025 Other I advised the patient that no further treatment is necessary at this time. If the condition should worsen they should call the office. Plan Of Treatment No Information Insurance Providers Payer Name Payer Address Payer Phone Subscriber Number Group Number Insured Name Patient Relationship to Insured Coverage Start Date Coverage End Date [employer] [place] [facility] [employer] [address] [place] [place], [place] [id number] BELKIS HOLT Self - patient is the insured
--- OUTSIDE RECORDS SUMMARY | 2025-04-04 01:29 | XMS_ITS | Data Portability ---
Author Organization [place] - [facility] [employer], Main Office Address [address] [place] [address] Care Team Providers Care Wearing Apparel Presser Name Role Phone DAHIANA CHACON Primary Care Provider [phone] Assessment No assessment recorded. Plan of Treatment Reminders Order Date Submit Date Provider Last Modified By Organization Details Last Modified Time Details Appointments None recorded. Lab lipid panel, serum 2024 025 [facility] - Outpatient Lab, [address] [place], [address], 5 08:19:38 CMP, serum or plasma 2024 025 [email or web address] [facility] - Outpatient Lab, [address] [place], [address], 5 08:19:38 TSH, serum or plasma 2024 025 [facility] Outpatient Lab, [address] [place], [address], 5 08:19:39 T4, free, serum 2024 025 [facility] Outpatient Lab, [address] [place], [address], 5 08:19:39 CBC w/ auto diff [email or web address] [place] [address] Outpatient Lab, [address] [place], [address], 5 08:19:39 vitamin B12, serum [email or web address] [place] [address] - Outpatient Lab, [address] [place], [address], 5 08:19:39 magnesium, serum or plasma [id number] [place] [address] Outpatient Lab, [address] [place], [address], 5 08:19:39 vitamin D, 25-hydroxy, total, serum [id number] [place] [address] Outpatient Lab, [address] [place], [address], 4 09:51:00 lipid panel, serum [email or web address] [place] [address] Outpatient Lab, [address] [place], [address], 4 09:51:00 CMP, serum or plasma [email or web address] [place] [address] Outpatient Lab, [address] [place], [address], 4 09:51:00 TSH, serum or plasma [email or web address] [place] [address] Outpatient Lab, [address] [place], [address], 4 09:51:00 T4, free, serum [id number] [place] [address] Outpatient Lab, [address] [place], [address], 4 09:51:00 CBC w/ auto diff [id number] [place] [address] Outpatient Lab, [address] [place], [address], 4 09:50:59 magnesium, serum or plasma 2023 024 [email or web address] [facility] - Outpatient Lab, [address] [place], [address], 4 09:50:59 vitamin B12, serum [id number] - Outpatient Lab, [address] [place], [address], 4 09:50:59 lipid panel, serum [id number] - Outpatient Lab, [address] [place], [address], 4 11:15:01 CMP, serum or plasma [email or web address] - Outpatient Lab, [address] [place], [address], 4 11:15:01 vitamin D, 25-hydroxy, total, serum [id number] - Outpatient Lab, [address] [place], [address], 3 12:52:16 lipid panel, serum [id number] - Outpatient Lab, [address] [place], [address], 3 12:52:15 CMP, serum or plasma [email or web address] - Outpatient Lab, [address] [place], [address], 3 12:52:15 vitamin B12, serum [email or web address] - Outpatient Lab, [address] [place], [address], 3 12:52:15 magnesium, serum or plasma [id number] - Outpatient Lab, [address] [place], [address], 3 12:52:15 CBC w/ auto diff 2022 023 [email or web address] [facility] - Outpatient Lab, [address] [place], [address], 3 12:52:15 Referral None recorded. Procedures None recorded. Surgeries None recorded. Imaging None recorded. Medication Orders atorvastati n 20 mg tablet 2023 024 [id number], [address], [place], [place], [id number], 4 15:13:03 Patient TargetsNo targets recorded. Patient Instructions Encounter Date Encounter Id Patient Instructions Last Modified By Organization Details Last Modified Time 08/16/2023 [id number] risk assessment* [email or web address] Not availabl e 08/16/2023 15:11:03 Personalized a [facility] Plan and Screening Recommendations Advance Directives - Do you have one? Yes Advance Directives - Do we have your advance directive on file in your health record? No, please bring in a copy at your earliest convenience Primary Prevention/Interven tion (prevents or decreases the chance of common diseases from occurring) Smoking Risk: Non Smoker Alcohol Misuse Screening: Negative Weight: Overweight try to lose 10% of your body weight Physical activity: Need more exercise/physical activity Nutrition: Average Eat hert healthy diet Fall Risk (screened today): Low Vaccines Pneumococcal: Influenza: Allergic Chronic Disease Risks Stroke: Intermediate Risk Active diagnosis, Continue current treatment plan Heart Attack: Intermediate Risk Active diagnosis, Continue current treatment plan Clogging of the Arteries: Intermediate Risk Active diagnosis, Continue current treatment plan Diabetes: Low Risk I have no recommendations Secondary Prevention/Interven tion (detects treatable diseases before they may cause symptoms, disability, or ) Breast Cancer Screening with mammogram: No screening necessary Cervical/Uterine/Ov jarred Cancer Screening: No screening necessary Osteoporosis Screening: up to date Date Screening Last Performed: Colon Cancer Screening: Colonoscopy due 2024 Date Screening Last Performed: _2020____ Eye Disease Screening: Your next exam in: goes yearly Dementia Risk: Low I have no recommendations Depression Screening: Negative I have no recommendations [email or web address] Not available 08/16/2023 14:54:09 Wellness evaluat ion risk assessment stable. Follow-up for GERD as well as history of bilateral neoplasms of the breast clinically doing pro. No interval complaints any new problems. Will continue on current Rx check blood work consisting of CBC, CMP, lipid, thyroid, B12, magnesium level and vitamin-D. Continue on current Rx follow-up in six months. Portions of the record may have been created with voice recognition software. Occasional wrong-word or loibd-y-xqsz substitutions may have occurred due to the inherent limitations of voice recognition software. Read the chart carefully and recognize, using context, where substitutions have occurred. [email or web address] Not available 08/16/2023 15:10:33 11/15/2023 [id number] Resolving influe veronica vasques. Clinically doing well. Continue on current Rx keep her scheduled appointment in February of 2024. Portions of the record may have been created with voice recognition software. Occasional wrong-word or sovha-o-wcmj substitutions may have occurred due to the inherent limitations of voice recognition software. Read the chart carefully and recognize, using context, where substitutions have occurred. Keep Appt: Tue 03:00 PM Benjamin [email or web address] Not available 11/15/2023 14:39:20 02/14/2024 [id number] Follow-up hyperlipidemia and GERD clinically stable. Did stop her cholesterol medication because of muscular aches and pains. Will give a trial of some atorvastatin 20 mg see if there is any improvement in her symptomatology. Otherwise is clinically doing well. Will follow-up in six months otherwise. Next Appointment: 6 Months Approximate Date: 08/12/2024 Portions of the record may have been created with voice recognition software. Occasional wrong-word or lvkfr-m-qqro substitutions may have occurred due to the inherent limitations of voice recognition software. Read the chart carefully and recognize, using context, where substitutions have occurred. Not available 02/14/2024 16:42:26 08/14/2024 [id number] Follow-up GERD, hyperlipidemia, history of renal calculi. All clinically stable at this time. Also history malignant tumor of the breast off clinically stable. Does not need any type of mammography since she has had bilateral mastectomies performed. History of otherwise doing well. Will check blood work consisting of CBC, CMP, lipid, thyroid and vitamin-D level. Check a B12 and Magnesium level. Continue on current Rx and follow-up in six months Follow Up: 6 Months Approximate Date: 02/10/2025 Portions of the record may have been created with voice recognition software. Occasional wrong-word or blhvi-t-xfhd substitutions may have occurred due to the inherent limitations of voice recognition software. Read the chart carefully and recognize, using context, where substitutions have occurred. [email or web address] Not available 08/14/2024 17:17:24 02/12/2025 [id number] Follow-up for GE RD, hyperlipidemia, malignant tumor of the breast. All clinically stable. Will check blood work consisting CBC, CMP, lipid, thyroid, B12 and magnesium level. Continue with current Rx and follow-up in six months Follow Up: 6 Months Approximate Date: 08/11/2025 Portions of record are template driven. When necessary additional context will be provided. Additionally some portions have been created with voice recognition software. Occasional wrong-word or pqmjc-m-kyxd substitutions may have occurred due to the inherent limitations of voice recognition software. Read the chart carefully and recognize, using context, where substitutions may have occurred. Created: Dahiana Chacon M.D. 02.12.2025 04:20 PM [email or web address] [id number] Not available 02/12/2025 17:21:01 Reason for Referral None Reported. Results Created Date Observation Date Name Description Value Unit Range Abnormal Flag Note LastModifiedBy Organization Detail LastModifiedTime 11/04/19 24 11/04/2023 XR, chest , 2 view No observ ation record ed. [address], [place], [address], 11/04/2023 15:49:02 11/04/19 24 11/04/2023 CT, brain , w/o contr ast No observ ation record ed. [place] [id number] [facility] [address], [place], [address], 11/04/2023 15:49:43 11/04/19 24 11/04/2023 CT, cervi jam spine , w/o contr ast No observ ation record ed. [address], [place], [address], 11/04/2023 15:50:22 11/06/19 24 11/06/2023 CT, brain , w/o contr ast No observ ation record ed. [address], [place], [address], 11/07/2023 06:54:03 11/07/19 24 11/07/2023 XR, hip, bilat eral No observ ation record ed. [address], [place], [address], 11/07/2023 10:21:38 11/07/19 24 11/07/2023 MRI, cervi jam spine , w/o contr ast No observ ation record ed. [address], [place], [address], 11/07/2023 16:55:54 11/08/19 24 11/08/2023 XR, chest , 2 view No observ ation record ed. [address], [place], [address], 11/08/2023 11:47:17 11/08/19 24 11/08/2023 US, echoc ardio gram No observ ation record ed. [address], [place], [address], 11/08/2023 17:20:24 11/09/19 24 11/06/2023 MRI, brain + brain stem, w/o contr ast No observ ation record ed. [email or web address] [id number] Not Available 2023 12:36:01 11/10/19 24 11/10/2023 US, abdom en No observ ation record ed. [address], [place], [address], 11/10/2023 17:12:13 Result Notes None recorded. Problems Name Problem SNOMED Code Status Onset Date Resolution Date Notes Provider Name and Address Organization Details Recorded Time Irritable bowel syndrome 06492548 Active Not Available [facility] 3 14:13:50 Nausea and vomiting 79862634 Active 2021 Not Available [facility] 3 14:13:50 Hemangioma of intra-abdomin al structure 552284207 Active Not Available [facility] 3 14:13:50 Gastroesophag eal reflux disease 648366631 Active 2018 Not Available [facility] 3 14:13:50 Multinodular goiter 744413009 Active Not Available [facility] 3 14:13:50 Pure hypercholeste rolemia 857624534 Active Not Available [facility] 3 14:13:50 Vitamin D deficiency 95085933 Active 2021 Not Available [facility] 3 14:13:50 History of malignant neoplasm of breast 156898192 Active Not Available [facility] 3 14:13:50 Allergic rhinitis 16277110 Active 2021 Not Available [facility] 3 14:13:50 Otitis media 13295093 Active 2021 Not Available [facility] 3 14:13:50 Malignant melanoma of skin of face 67219906 Active Not Available [facility] 3 14:13:50 Kidney stone 73789210 Active Not Available [facility] 3 14:13:51 Gastroesophag eal reflux disease without esophagitis 490789839 Active 2022 Rekha Queen CMA null, [place] [facility] [employer] 3 15:23:43 Contact dermatitis caused by urushiol from Eastern poison dalila 636850154 Active 2022 Dahiana Chacon MD [address], [facility] [address], [place], [address] , [place] [facility] 3 12:31:56 Itching of skin 407706764 Active 2022 Rekha Queen CMA null, [place] [facility] 3 13:50:48 Influenza caused by Influenza A virus 039157399 Active 2023 Dahiana Chacon MD [address], [facility] [address], [place], [address] , [facility] [employer] [facility] 4 14:36:50 Acute urinary tract infection 067590983 Active 2023 Dahiana Chacon MD [address], [facility] [address], [place], [address] , [facility] [employer] [facility] 4 12:28:30 Eruption 758036731 Active 2024 Rekha Queen CMA null, [facility] [employer] [facility] 5 12:29:10 Problem Notes None recorded. Medical Equipment None Reported. Allergies Allergen ID Allergen Name Allergen Category Reaction Reaction Severity Criticality Documentation Date Start Date Code Code System Note Provider Name and Address Organization Details Recorded Time 28472 Substance with sulfonami de structure and antibacte rial mechanism of action (substanc e) medicatio n rash Not available Not available 12/01/2022 48524 8003 SNOMED Not Available [facility] 3 14:16:47 70663 Product containin g penicilli n (product) medicatio n rash Not available Not available 12/01/2022 03098 8001 SNOMED Not Available [facility] 3 14:16:47 28215 Cipro medicatio n dizziness Not available Not available 12/01/202258443 3 RxNorm Not Available [facility] 3 14:16:47 99614 Biaxin medicatio n rash Not available Not available 12/01/2022 23104 9 RxNorm Not Available [facility] 3 14:16:47 31734 Augmentin medicatio n rash Not available Not available 12/01/2022 55760 2 RxNorm Not Available [facility] 3 14:16:47 Medications Name Sig Start Date Stop Date Status Note LastModified by Organization Details LastModified Time Zocor 20 mg tablet Take 1 tablet every day by oral route. 01/28 completed Not Available Not Available Not Available atorvastati n 20 mg tablet TAKE 1 TABLET BY MOUTH EVERY DAY 02/16 completed Not Available Not Available Not Available clindamycin HCl 300 mg capsule Take 1 capsule every 6 hours by oral route. 01/28 completed Not Available Not Available Not Available famotidine 10 mg tablet Take 1 tablet every day by oral route. 12/27 completed Not Available Not Available Not Available benzonatate 200 mg capsule Take 1 capsule 3 times a day by oral route. 07/29 completed Not Available Not Available Not Available lecithin 1,200 mg capsule Take 2 capsules every day by oral route. 2021 active Not Available Not Available Not Avai lable prochlorper azine maleate 5 mg tablet TAKE 1 TABLET BY MOUTH EVERY 8 HOURS NEEDED FOR NAUSEA OR VOMITING active Not Available Not Available No t Available prednisone 20 mg tablet TAKE 2 TABLETS BY MOUTH DAILY FOR 3 DAYS THEN TAKE 1 TABLET BY MOUTH DAILY FOR 3 DAYS 08/16 completed Not Available Not Available Not Available clobetasol 0.05 % topical cream 08/16 completed Not Available Not Available Not Available Zithromax Z-Olman 250 mg tablet Take 2 TABLET EVERY DAY by oral route for 1 day then one daily 07/29 completed Not Available Not Available Not Available Zyrtec 10 mg tablet Take 1 tablet every day by oral route. 2015 active Not Available Not Available Not Avai lable melatonin 3 mg tablet Take by oral route. 07/29 completed Not Available Not Available Not Available triamcinolo ne acetonide 0.1 % topical cream APPLY TOPICALLY TO THE AFFECTED AREA TWICE DAILY active Not Available Not Available No t Available simvastatin 40 mg tablet TAKE 1 TABLET BY MOUTH EVERY NIGHT AT BEDTIME 2024 active Not Available Not Available Not Avai lable meclizine 25 mg tablet TAKE 1 TABLET BY MOUTH TWICE DAILY NEEDED FOR DIZZINESS 08/16 completed Not Available Not Available Not Available pantoprazol e 40 mg tablet,jeanine yed release TAKE 1 TABLET BY MOUTH EVERY DAY 2024 active Not Available Not Available Not Avai lable hyoscyamine sulfate 0.125 mg tablet TAKE 1 TABLET BY MOUTH FOUR TIMES DAILY NEEDED FOR DYSPEPSIA active Not Available Not Available No t Available Transderm-S copying machine repairer 1 mg over 3 days transdermal patch Apply 1 patch as needed by transderm al route. active Not Available Not Available No t Available azelastine 137 mcg (0.1 %) nasal spray 01/28 completed Not Available Not Available Not Available methylpredn isolone 4 mg tablets in a dose pack FOLLOW PACKAGE DIRECTION S active Not Available Not Available No t Available hydroxyzine HCl 10 mg tablet TAKE 1 TABLET BY MOUTH THREE TIMES DAILY NEEDED active Not Available Not Available No t Available ondansetron 4 mg disintegrat ing tablet DISSOLVE 1 TABLET ON THE TONGUE FOUR TIMES DAILY NEEDED 01/28 completed Not Available Not Available Not Available cefdinir 300 mg capsule TAKE 1 CAPSULE BY MOUTH EVERY 12 HOURS. START ON THE MORNING ON 03/11/2207/30 completed Not Available Not Available Not Available dicyclomine 10 mg capsule TAKE 1 CAPSULE BY MOUTH THREE TIMES DAILY active Not Available Not Available No t Available nitrofurant oin monohydrate /macrocryst als 100 mg capsule TAKE 1 CAPSULE BY MOUTH EVERY 12 HOURS 02/12 completed Not Available Not Available Not Available magnesium 01/28 completed Not Available Not Available Not Available vitamin E 400 units iu active Not Available Not Available No t Available lecithin 2 tabs daily 01/29 completed Not Available Not Available Not Available Nasacort 07/29 completed Not Available Not Available Not Available [place]-3 1000mg one three times a day 01/29 completed Not Available Not Available Not Available multivitami n daily 01/29 completed Not Available Not Available Not Available Suprep Bowel Prep Kit 17.5 gram-3.13 gram-1.6 gram oral solution MIX AND DRINK UTD 01/16 completed Not Available Not Available Not Available Os-Jam 500 + D3 500 mg-15 mcg (600 unit) tablet Take 1 tablet twice a day by oral route. active Not Available Not Available No t Available melatonin 3 mg disintegrat ing tablet Take by oral route. 01/28 completed Not Available Not Available Not Available Os-Jam + D3 01/29 completed Not Available Not Available Not Available BinaxNOW COVID-19 Ag Self Test kit TEST DIRECTED TODAY 01/28 completed Not Available Not Available Not Available Vitals Date Recorded Body height Body mass index (BMI) Body weight Heart rate Body temperature Oxygen saturation Oxygen saturation in Arterial blood by Pulse oximetry Systolic blood pressure Diastolic blood pressure Provider Name and Address Organization Details Last Updated DateTime 4 160.02 cm 28.9 kg/m2 31293.5 6 g 85 /min 97.9 [degF] 98 % 98 % 130 mm[Hg] 70 mm[Hg] JEANNA Causey [facility] [employer] [facility] 4 14:27:22 Date Recorded Body height Body mass index (BMI) Body weight Heart rate Body temperature Oxygen saturation Oxygen saturation in Arterial blood by Pulse oximetry Systolic blood pressure Diastolic blood pressure Provider Name and Address Organization Details Last Updated DateTime 5 160.02 cm 29.3 kg/m2 89925.5 4 g 91 /min 97 [degF] 97 % 97 % 120 mm[Hg] 74 mm[Hg] [facility] [employer] [facility] 5 17:08:25 Date Recorded Body height Body mass index (BMI) Body weight Heart rate Body temperature Oxygen saturation Oxygen saturation in Arterial blood by Pulse oximetry Systolic blood pressure Diastolic blood pressure Provider Name and Address Organization Details Last Updated DateTime 4 160.02 cm 28.9 kg/m2 73175.5 6 g 98 /min 97 [degF] 96 % 96 % 122 mm[Hg] 64 mm[Hg] [facility] [employer] [facility] 4 16:08:07 Date Recorded Body height Body mass index (BMI) Body weight Heart rate Body temperature Oxygen saturation Oxygen saturation in Arterial blood by Pulse oximetry Systolic blood pressure Diastolic blood pressure Provider Name and Address Organization Details Last Updated DateTime 4 160.02 cm 28.3 kg/m2 64083.7 8 g 85 /min 97 [degF] 98 % 98 % 130 mm[Hg] 72 mm[Hg] JEANNA Causey [facility] [employer] [facility] 4 16:59:46 Date Recorded Body height Body mass index (BMI) Body weight Heart rate Body temperature Oxygen saturation Oxygen saturation in Arterial blood by Pulse oximetry Systolic blood pressure Diastolic blood pressure Provider Name and Address Organization Details Last Updated DateTime 3 160.02 cm 29.1 kg/m2 14191.1 5 g 107 /min 97 [degF] 94 % 94 % 134 mm[Hg] 62 mm[Hg] Shruthi Duran [place] [facility] 3 14:46:06 Social History None recorded. Functional Status None recorded. Mental Status None recorded. Family History Nothing Reported Notes:Mother 84 yea rs old Father 75 years old 2 Brothers 1 from cerebral aneurysm 1 Sisters 1 Living Sister age 55 ovarian/peritoneal cancer Mother Hx Sudden Father Hx Ca of Lung Medical History Condition Response NERVE DISEASE N BLINDNESS N RHEUMATIC FEVER N KIDNEY STONES N BLADDER PROBLEMS N MRSA N OTHER # 1 N POLIO N LUNG DISEASE/DISORDER N HISTORY OF DRUG ABUSE N COPD N RADIATION / CHEMOTHERAPY N Other # 2 N BLOOD DISEASES N EAR OR HEARING PROBLEMS N MUMPS N SHINGLES N DEPRESSION (INCLUDING POST ) N BOWEL PROBLEMS Y STROKE/TIA N ULCERS N BENIGN PROSTATIC HYPERPLASIA N MEASLES N HYPOTENSION N MYOCARDIAL INFARCTION N OBESITY N GERD/NAUSEA N ANEURYSM N URINARY/BLADDER/KIDNEY PROBLEMS N CORONARY ARTERY DISEASE (CAD) N ADDICTION CONCERNS N Impotence N ENDOMETRIOSIS N USE OF BLOOD THINNERS N SKIN PROBLEMS N GASTROINTESTINAL DISORDER N PERIPHERAL VASCULAR DISEASE N MUSCLE,JOINT OR BONE PROBLEMS N GASTROINTESTINAL BLEEDING N BLOOD CLOTS N ASTHMA N CATARACTS N ERECTILE DYSFUNCTION N VARICOSITIES N GI PROBLEMS N Low Testosterone N INFERTILITY N AIDS/HIV N CHEMOTHERAPY / RADIATION N LIVER DISEASE N MALE HYPOGONADISM N HYPERTENSION N Deficiency N TOURETTE'S N ANXIETY DISORDER N BLOOD TRANSFUSION N ANEMIA/BLOOD DISORDER N CHRONIC EAR INFECTIONS N BRONCHITIS N TUBERCULOSIS N GLAUCOMA N FOOT PROBLEM N DIVERTICULITIS N CHICKENPOX N SLEEP APNEA N INFECTIOUS DISEASE N HEART ARRHYTHMIA N PROSTATE N INSOMNIA N HIGH CHOLESTEROL / HYPERLIPIDEMIA Y EYE PROBLEMS N HYPERTHYROIDISM N EDEMA N CHRONIC PAIN SYNDROME N HYPOTHYROIDISM N CAROTID BLOCKAGE N CONSTIPATION N BACK / NECK PROBLEMS N HAVE YOU BEEN HOSPITALIZED OR SEEN IN [facility] ER IN THE PAST YEAR ? N ATHEROSCLEROSIS N BREAST PROBLEMS Y DIALYSIS N ECZEMA N OSTEOPOROSIS N ARTHRITIS N NO SIGNIFICANT PAST MEDICAL HISTORY N APPENDICITIS N DIABETES, TYPE N BAD TEETH N ENT N HEARTBURN / REFLUX N AUTISM SPECTRUM DISORDER (ASD) N HEPATITIS / LIVER DISEASE N GOUT N SLEEP DISORDER N ALZHEIMER'S DISEASE N Brain Problems N HERPES N DEMENTIA N SEIZURES/EPILEPSY N HEADACHES/MIGRAINES N VASCULAR DISEASE N PACEMAKER N Blood Disorder N DIZZINESS N KIDNEY DISEASE N HEART DISEASE/HEART PROBLEMS N MULTIPLE SCLEROSIS N CARDIAC ARRHYTHMIA N CANCER: SPECIFY N Gall Stones N ATRIAL FIBRILLATION N PULMONARY EMBOLISM N AUTOIMMUNE DISEASE N Gynecological HistoryNo gynecological history recorded. Obstetrics History GPAL:G 0 P 0 0 0 0 Past Encounters Encounter ID Performer Location Encounter Start Date Encounter Closed Date Diagnosis/Indication Diagnosis SNOMED-CT Code Diagnosis ICD10 Code Diagnosis Note [id number] Dahiana Chacon MD [facility] [place] [address] [place] [address] [place] [address] 01/16/2021 00:00:00 01/16/2021 17:16:05 [id number] Dahiana Chacon MD [facility] Internal [facility] [place] [address] [place] [address] [place] [address] 07/24/2021 00:00:00 07/24/2021 17:10:56 [id number] Dahiana Chacon MD [facility] [place] [address] [place] [address] [place] [address] 01/29/2022 00:00:00 01/29/2022 16:58:05 [id number] Dahiana Chacon MD [facility] [place] [address] [place] [address] [place] [address] 07/30/2022 00:00:00 07/30/2022 17:24:56 [id number] Dahiana Chacon MD [facility] [place] [address] [place] [address] [place] [address] 01/28/2023 16:24:42 01/28/2023 17:00:25 Gastroesophageal reflux disease 782802981 K21.9 History of malignant neoplasm of breast 507674239 Z85.3 Pure hypercholesterolemia 808218398 E78.00 [id number] Dahiana Chacon MD [facility] [place] [address] [place] [address] [place] [address] 08/16/2023 14:36:22 08/16/2023 15:14:28 Adult health examination [id number] Z00.00 Depression screening 171 429537 Z13.31 Gastroesop hageal reflux disease 423904241 K21.9 History of malignant neoplasm of breast 312915103 Z85.3 Screening for cardiovascular system disease 563121387 Z13.6 Vitamin D deficiency 347 18304 E55.9 [id number] Dahiana Chacon MD [facility] [place] [address] [place] [address] [place] [address] 11/15/2023 14:18:07 11/15/2023 14:50:14 Influenza caused by Influenza A virus [id number] J09.X2 [id number] Dahiana Chacon MD [facility] [place] [address] [place] [address] [place] [address] 02/14/2024 15:44:52 02/14/2024 17:03:33 Pure hypercholesterolemia 324539524 E78.00 Gastroesop hageal reflux disease without esophagitis 796173852 K21.9 [id number] Dahiana Chacon MD [facility] [place] [place] [address] 08/14/2024 16:52:21 08/14/2024 17:26:57 Gastroesophageal reflux disease 765538217 K21.9 Pure hypercholesterolemia 014438079 E78.00 Kidney stone 46849770 N2 0.0 Vitamin D deficiency 347 25138 E55.9 [id number] Dahiana Chacon MD [facility] Internal Med [facility] [address] [facility] [address] [place] [address] 02/12/2025 16:45:44 02/12/2025 17:23:24 Gastroesophageal reflux disease 429236018 K21.9 Pure hypercholesterolemia 321879055 E78.00 History of malignant neoplasm of breast 059796233 Z85.3 Health Concerns Section Related Observation LastModified by Organization Detai ls LastModified Time None Recorded Concern Status LastModified by Organization Details LastModified Time None Recorded Advance Directives Directive None Recorded Payers Insurance Date Sequence Insurance Name Policy Number Policy Martin Covered Member ID Martin Member ID Guarantor Name 02/18/2025 1 R [id number] Serena Smith [id number] Gillian Smith Notes Date Note Type Note Provider Name and Address Organization Details Recorded Time 08/16/20 23 text/htm l Patient Name: Gillian Cuetoate Of Service: Tuesday ( 08.16.2023 ): 1955 Age: 68 There has been approximately a 4 lb weight loss since 01/28/2023. This represents approximately a 2.4% change in weight. Weight change attributable to lifestyle changes. Vital Signs:Blood Pressure: Sitting Rt. Arm 134/62Pulse: Sitting 107 /min and RegularRespiratory Rate: 12Height 63 in or 1.6 mWeight 164 lb or 74.4 kgBMI 29.0Temperature: 97 F or 36.1 CPulse Oximetry: 94 % at rest on no oxygen Chief Complaint: Addressed in HPI Problems or conditions discussed in the HPI were the only ones reviewed during the encounter.Only social and family history addressed in the HPI were reviewed during this encounter. Attendant(s): NoneConstitutional and Systemic Symptoms:none Medication Reconciliation: from medication list. Ewavyruoqov21/03/2023: Ultrasound breast demonstrated no evidence any mass lesion in the area of the scar. History of Present Illness In for a well patient check up. Last well patient evaluation was approximately one year. No interval complaints of any major medical problems. No hx of any chest pain, shortness of breath, nausea, vomiting, diarrhea or constitutional symptoms. Also being followed for other chronically monitored problems.Has Had A Mammogram already doneHas Had A Pap Smear already doneImmunizations Up To Date or refuses to takeNo Significant Change In Family HxColonoscopy or Cologuard: not dueFall Risk normalDepression Score: 0Hearing normalVision normalReviewed Smoking and Drug HistoryReviewed Immunization HistoryInstructed on importance of weight on diabetes, heart and other diseases aggravated by obesity. #1. Hx of esophageal reflux currently stable. Hx of Complications: none The severity, duration and intensity of symptoms have improved. Frequency: most meals Treatment consists medications taken on a regular basis. Current therapy includes Protonix. There has been no nausea, vomiting, hematemesis, dysphagia, velopharyngeal insufficiency and odynophagia. No change in he frequency or intensity of symptoms. Has had no melena. Has had no hematemesis. Discuss the possibility of trying to reduce the frequency of the use of any PPI inhibitors or H2 antagonist to see if symptoms can be controlled with last intensive therapy #2. Hx of Ca of both breast(s). Sub classification: see oncology records. Metastasis: None Current Medications: none..Medication List Reviewed and Reconciled 08/16/2023Vitamin E 400 IU One Daily For Vitamin ReplacementZyrtec 10 MG (TABLET - ORAL) One DailyZocor 40 MG TABLET, FILM COATED One Hs For CholesterolOmega-3 1000 MG One TidOs-jam D 500MG Twice A DayMultivitamin DailyLecithin 2 Tabs DailyProtonix 40 MG TABLET, DELAYED RELEASE Once DailyADRs List Reviewed 08/16/2023iaxin RashPenicillin RashCipro VertigoSurgical HistoryMelanoma Face, D&C, Thyroid Surgery, Septoplasty, TonsillectomyPreventative Testing Confirmed by Our Lmrujvf4308/31/2022 DEXA SCAN09/04/2020 COLONOSCOPY (5 YEARS) UPPER [id number]/26/2007 CEA08/29/2006 MAMMOGRAM 08/29/2007Social HistorySOCIAL HISTORY:Marital Status: MarriedDoes not smoke cigarettes. Drinking Hx: Decaffeinated , 9 oz of tea per day, 18 oz cans of soft drinks per day.Exercise: WeeklySexual Hx: Sexually ActiveOccupation: HealthcareFamily HistoryFAMILY HISTORY:Mother 84 years oldFather 75 years old2 Brothers 1 from cerebral aneurysm1 Sisters 1 LivingSister age 55 ovarian/peritoneal cancerMother Hx: Sudden DeathFather Hx: Ca of Lung Dahiana Chacon MD [address] [facility], [facility] [address], [place], [address], [place] [facility] [employer] 08/16/2023 15:11:07 02/14/20 24 text/htm l Patient Name: Gillian Sanz Of Service: Tuesday ( 02.14.2024 ): 1955 Age: 68 Vital Signs:Blood Pressure: Sitting Rt. Arm 122/64Pulse: Sitting 98 /min and RegularRespiratory Rate: 12Height 63 in or 1.6 mWeight 163 lb or 73.9 kgBMI 28.9Temperature: 97 F or 36.1 CPulse Oximetry: 96 % at rest on no oxygen Chief Complaint: Addressed in HPI Problems or conditions discussed in the HPI were the only ones reviewed during the encounter.Only social and family history addressed in the HPI were reviewed during this encounter. Attendant(s): NoneConstitutional and Systemic Symptoms:none Medication Reconciliation: from medication list. Abcxwduvryj83/03/2023: Ultrasound breast demonstrated no evidence any mass lesion in the area of the scar. 11-06-2023: Ultrasound of abdomen hepatic steatosis History of Present Illness #1. Type II Hypercholesterolaemia: Currently stopped medication independently. No interval complaints of any muscle pain or arthralgia. No significant liver changes with medications. Last lipid panel: no testing done recently. Therapy reviewed regarding treatment of cholesterol management and include cannot tolerate statins or related agents. #2. Hx of esophageal reflux currently stable. Hx of Complications: none The severity, duration and intensity of symptoms have improved. Frequency: most meals Treatment consists medications taken on a regular basis. Current therapy includes Protonix. There has been no nausea, eructation, vomiting, hematemesis, dysphagia, velopharyngeal insufficiency and odynophagia. No change in he frequency or intensity of symptoms. Has had no melena. Has had no . Discussed use of H2 antagonists and the possibility of trying to reduce the frequency of the use of any PPI inhibitors and try H2 antagonists to see if symptoms can be controlled with lease intensive therapy since a number of complications are associated with chronic prolonged use of PPI inhibitors. Active Medication ListVitamin E 400 IU One Daily For Vitamin ReplacementZyrtec 10 MG (TABLET - ORAL) One DailyZocor 40 MG TABLET, FILM COATED One Hs For CholesterolOmega-3 1000 MG One TidOs-jam D 500MG Twice A DayMultivitamin DailyLecithin 2 Tabs DailyProtonix 40 MG TABLET, DELAYED RELEASE Once Daily Adverse Drug Reactions ReviewedBiaxin RashPenicillin RashCipro Vertigo Surgical Iydqujh0194-89 Melanoma Dhlr5694-81 D&I5148-61 Thyroid Xuvpqct3978-48 Gjnxsmdmkyd3150-73 Tonsillectomy Preventative Fdtorlt3408/31/2022 DEXA SCAN09/04/2020 COLONOSCOPY (5 YEARS) UPPER [id number]/26/2007 CEA08/29/2006 MAMMOGRAM 08/29/2007 Social HistorySOCIAL HISTORY:Marital Status: MarriedDoes not smoke cigarettes. Drinking Hx: Decaffeinated , 9 oz of tea per day, 18 oz cans of soft drinks per day.Exercise: WeeklySexual Hx: Sexually ActiveOccupation: HealthcareFamily HistoryFAMILY HISTORY:Mother 84 years oldFather 75 years old2 Brothers 1 from cerebral aneurysm1 Sisters 1 LivingSister age 55 ovarian/peritoneal cancerMother Hx: Sudden DeathFather Hx: Ca of Lung Dahiana Chacon MD [address] [facility], [facility] [address], [place], [address], [facility] [employer] 02/14/2024 16:43:06 08/14/20 24 text/htm l Patient Name: Gillian Sanz Of Service: Tuesday ( 08.14.2024 ): 1955 Age: 69 There has been approximately a 3 lb weight loss since 02/14/2024. This represents approximately a 1.8% change in weight. Weight change attributable to lifestyle changes. Vital Signs:Blood Pressure: Sitting Rt. Arm 130/72Pulse: Sitting 85 /min and RegularRespiratory Rate: 16Height 63 in or 1.6 mWeight 160 lb or 72.6 kgBMI 28.3Temperature: 97 F or 36.1 CPulse Oximetry: 98 % at rest on no oxygen Chief Complaint: Addressed in HPI Problems or conditions discussed in the HPI were the only ones reviewed during the encounter.Only social and family history addressed in the HPI were reviewed during this encounter. Attendant(s): NoneConstitutional and Systemic Symptoms:none Medication Reconciliation: from medication list. Smsjbhhngeb90/03/2023: Ultrasound breast demonstrated no evidence any mass lesion in the area of the scar. 11-06-2023: Ultrasound of abdomen hepatic steatosis History of Present Illness #1. Hx of esophageal reflux currently stable. Hx of Complications: Voss's The severity, duration and intensity of symptoms have improved. Frequency: most meals Treatment consists medications taken on intermittent basis. Current therapy includes Protonix. There has been no nausea, eructation, vomiting, hematemesis, dysphagia, velopharyngeal insufficiency and odynophagia. No change in he frequency or intensity of symptoms. Has had no melena. Has had no . Discussed use of H2 antagonists and the possibility of trying to reduce the frequency of the use of any PPI inhibitors and try H2 antagonists to see if symptoms can be controlled with lease intensive therapy since a number of complications are associated with chronic prolonged use of PPI inhibitors. #2. Type I Hypercholesterolaemia: Currently taking medication and tolerating well. No interval complaints of any muscle pain or arthralgia. No significant liver changes with medications. Last lipid panel: fair control. Therapy reviewed regarding treatment of cholesterol management and include diet and Zocor. #3. Renal Calculi: History of unknown renal calculi. No interval complaints of any flank pain, nausea, vomiting, or gross hematuria. No other urinary track symptoms or signs of urinary infection. Active Medication ListVitamin E 400 IU One Daily For Vitamin ReplacementZyrtec 10 MG (TABLET - ORAL) One DailyZocor 40 MG TABLET, FILM COATED One Hs For CholesterolOmega-3 1000 MG One TidOs-jam D 500MG Twice A DayMultivitamin DailyLecithin 2 Tabs DailyProtonix 40 MG TABLET, DELAYED RELEASE Once Daily Adverse Drug Reactions ReviewedBiaxin RashPenicillin RashCipro Vertigo Surgical Pgqqxtz3176-30 Melanoma Fwei7964-26 D&E1074-27 Thyroid Kcsftqh7880-19 Hyhiyewlxkl5957-56 Tonsillectomy Preventative Testing( ) 08/31/2022 DEXA Scan 08/31/2024( ) 09/04/2020 Colonoscopy (5 Years) 09/04/2025(X) 03/06/2019 Upper Endoscopy 03/06/2024( ) 01/26/2007 CEA(X) 08/29/2006 Mammogram 08/29/2008 Social HistorySOCIAL HISTORY:Marital Status: MarriedDoes not smoke cigarettes. Drinking Hx: Decaffeinated , 9 oz of tea per day, 18 oz cans of soft drinks per day.Exercise: WeeklySexual Hx: Sexually ActiveOccupation: HealthcareFamily HistoryFAMILY HISTORY:Mother 84 years oldFather 75 years old2 Brothers 1 from cerebral aneurysm1 Sisters 1 LivingSister age 55 ovarian/peritoneal cancerMother Hx: Sudden DeathFather Hx: Ca of Lung Dahiana Chacon MD [address] [facility], [facility] [address], [place], [address], [place] [facility] 08/14/2024 17:17:52 02/13/20 25 text/htm l Patient Name: Gillian Sanz Of Service: Tuesday ( 02.12.2025 ): 1955 Age: 69 There has been approximately a 5.5 lb weight gain since 08/14/2024. This represents approximately a 3.4% change in weight. Weight change attributable to lifestyle changes. Vital Signs:Blood Pressure: Sitting Rt. Arm 120/74Pulse: Sitting 91 /min and RegularRespiratory Rate: 16Height 63 in or 1.6 mWeight 165.5 lb or 75.1 kgBMI 29.3Temperature: 97 F or 36.1 CPulse Oximetry: 97 % at rest on no oxygen Chief Complaint: Addressed in HPI Problems or conditions discussed in the HPI were the only ones reviewed during the encounter.Only social and family history addressed in the HPI were reviewed during this encounter. Attendant(s): NoneConstitutional and Systemic Symptoms:none Medication Reconciliation: from medication list. Fqwfaitwjug44/03/2023: Ultrasound breast demonstrated no evidence any mass lesion in the area of the scar. 11-06-2023: Ultrasound of abdomen hepatic steatosis History of Present Illness #1. Hx of esophageal reflux currently stable. Hx of Complications: none The severity, duration and intensity of symptoms have improved. Frequency: most meals Treatment consists medications taken on intermittent basis. Current therapy includes Protonix. There has been no nausea, eructation, vomiting, hematemesis, dysphagia, velopharyngeal insufficiency and odynophagia. No change in he frequency or intensity of symptoms. Has had no melena. Has had no . Discussed use of H2 antagonists NA. #2. Type II Hypercholesterolaemia: Currently taking medication and tolerating well. No interval complaints of any muscle pain or arthralgia. No significant liver changes with medications. Last lipid panel: fair control. Therapy reviewed regarding treatment of cholesterol management and include diet and Zocor. #3. Hx of Ca of both breast(s). Sub classification: unknown. Metastasis: None Current Medications: none.. Active Medication ListVitamin E 400 IU One Daily For Vitamin ReplacementZyrtec 10 MG (TABLET - ORAL) One DailyZocor 40 MG TABLET, FILM COATED One Hs For CholesterolOmega-3 1000 MG One TidOs-jam D 500MG Twice A DayMultivitamin DailyLecithin 2 Tabs DailyProtonix 40 MG TABLET, DELAYED RELEASE Once Daily Adverse Drug Reactions ReviewedBiaxin RashPenicillin RashCipro Vertigo Surgical Dmeqgcp6773-99 Melanoma Zlzz9130-16 D&B2164-56 Thyroid Lifwrzl9888-56 Qeheobnepyb9098-48 Tonsillectomy Preventative TestingPreventative Testing Discussed and Scheduled if Acceptable to Patient (X) 08/31/2022 DEXA Scan 08/31/2024( ) 09/04/2020 Colonoscopy (5 Years) 09/04/2025(X) 03/06/2019 Upper Endoscopy 03/06/2024( ) 01/26/2007 CEA(X) 08/29/2006 Mammogram 08/29/2008 Social HistorySOCIAL HISTORY:Marital Status: MarriedDoes not smoke cigarettes. Drinking Hx: Decaffeinated , 9 oz of tea per day, 18 oz cans of soft drinks per day.Exercise: WeeklySexual Hx: Sexually ActiveOccupation: HealthcareFamily HistoryFAMILY HISTORY:Mother 84 years oldFather 75 years old2 Brothers 1 from cerebral aneurysm1 Sisters 1 LivingSister age 55 ovarian/peritoneal cancerMother Hx: Sudden DeathFather Hx: Ca of Lung Dahiana Chacon MD [address] [facility], [facility] [address], [place], [address], [place] [facility] [employer] [facility] 02/12/2025 17:21:17 OBGyn Episode No OBEpisode recorded.
[2025-04-04 08:00] VITALS: BP 149/73; PULSE 78; RESP 18; TEMP 36.3; O2SAT 98
[2025-04-04] MEDS: LACTATED RINGERS 1,000 ML 150 ML IV CONT (08:09)
[2025-04-04] MEDS: SIMETHICONE ORAL SUSPENSION 20 MG/0.3 ML 30 ML BOTTLE 1.8 ML PO (08:11)
--- NOTE | 2025-04-04 08:47 | WPDANESEPPF ---
Anes - Initial Pre Proc Eval Procedure: Operation Date: 04/04/25 09:15 Proposed Procedures p Esophagogastroduodenoscopy & Colonoscopy - Markos Duarte MD Date/Time: 04/04/25 08:47 Surgeon: Markos Duarte MD Pre Op Diagnosis: GERD/IBS Patient Data Age: 70 Gender: F Height: 1.63 m Weight: 72.9 kg Last Vital Signs Temp 36.3 C L 04/04/25 08:00 Pulse 78 04/04/25 08:00 Resp 18 04/04/25 08:00 BP 149/73 H 04/04/25 08:00 Pulse Ox 98 04/04/25 08:00 O2 Del Method Room Air 04/04/25 08:00 Allergies Allergy/AdvReac Type Severity Reaction Status Date / Time ciprofloxacin Allergy Severe nausea Verified 04/04/25 07:58 vomiting codeine Allergy Severe severe Verified 04/04/25 07:58 nausea vomiting levofloxacin Allergy Severe nausea Verified 04/04/25 07:58 vomiting Penicillins Allergy Intermediate Hives / Verified 04/04/25 07:58 Red Face erythromycin base AdvReac Intermediate Nausea and Verified 04/04/25 07:58 Vomiting lactose AdvReac Intermediate STOMACH Verified 04/04/25 07:58 UPSETS Sulfa (Sulfonamide AdvReac Intermediate HIVE, Verified 04/04/25 07:58 Antibiotics) DIFFICULTY BREATHING sulfamethoxazole AdvReac Intermediate HIVE, Verified 04/04/25 07:58 DIFFICULTY BREATHING trimethoprim AdvReac Intermediate HIVE, Verified 04/04/25 07:58 DIFFICULTY BREATHING amoxicillin AdvReac Mild Hives Verified 04/04/25 07:58 clarithromycin AdvReac Mild HIVES,RASH,DIFFICULTY Verified 04/04/25 07:58 BREATHING Quinolones AdvReac Mild HIVES,RASH Verified 04/04/25 07:58 PAIN MEDS AdvReac Intermediate SEVERE Uncoded 04/04/25 07:58 NAUSEA AND VOMITING IVP DYE AdvReac Mild Rash Uncoded 04/04/25 07:58 Home Medications ?Medication ?Instructions ?Recorded ?Confirmed ?Type simvastatin 40 mg tablet 40 mg PO DAILY 03/20/20 04/04/25 History calcium carbonate 500 mg PO DAILY 03/31/21 04/04/25 History pantoprazole 40 mg tablet,delayed 40 mg PO QAM #90 tabs 10/02/21 04/04/25 Rx release cetirizine 10 mg capsule (Zyrtec) 10 mg PO DAILY 03/15/22 04/04/25 History multivitamin with minerals 1 tablet PO DAILY 04/13/22 04/04/25 History (Hair,Skin and Nails tablet) fluticasone propionate 50 1 - 2 spray intranasal Q12HR #16 07/29/22 04/04/25 Rx mcg/actuation nasal grams spray,suspension biotin 1,250 mcg-collagen 50 1 tablet PO DAILY 11/04/23 04/04/25 History mg-vit C 67.5 mg-vit E-herbal chew tablet (Alive Hair, Skin and Nails) ibuprofen 200 mg tablet 600 mg PO Q6H PRN Abdominal 11/05/23 03/23/25 History Discomfort Patient hx anesthesia problems: none Family hx anesthesia problems: none Results Review: All pre-operative results and documents have been reviewed as part of the pre-operative evaluation. [facility] Past Medical History Medical History (Updated 03/21/25 @ 16:07 by AMARILYS Andujar) Diarrhea GERD (gastroesophageal reflux disease) Change in bowel habits Constipation Abdominal pain Nausea and vomiting Cancer Vitamin D deficiency Irritable bowel syndrome History of bilateral breast cancer (~2003) Tubular History of uterine cancer (~2007) Osteopenia History of squamous cell carcinoma Personal history of melanoma in-situ (~2009) Left face Hyperlipidemia due to dietary fat intake Surgical History Surgical History History of Mohs surgery for squamous cell carcinoma of skin History of partial thyroidectomy Due to benign cyst of the left thyroid lobe History of tonsillectomy and adenoidectomy History of colonoscopy with polypectomy History of endometrial ablation X2 History of total hysterectomy with bilateral salpingo-oophorectomy (BSO) (~2007) Due to uterine cancer Status post bilateral mastectomy Family History Family History Grandparent Diabetes mellitus Asthma Mother , At age 85 Hyperlipidemia Heart disease Father , At age 75 Lung cancer Cancer Sibling Malignant neoplasm of prostate Family history of malignant neoplasm of ovary Hypertension Son Asthma Sibling Cancer Hypertension Social History Social History Social History: She lives home with her of 41 years. 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 She has 2 sons who are healthy. She is a lifelong nonsmoker and does not drink alcohol. Code status: Full code Surrogate decision maker: Smoking status: Never smoker Alcohol intake: never Substance use: never Substance use type: does not use Do You Feel Safe in your Home?: Yes Lack of Transportation: No Lack of Food: Never True Current Housing: I Have Housing Concerned About Future Housing: No Difficulty Paying Gas/Electric Bills: No Difficulty Paying for Meds: No Currently Unemployed: No Education: Bachelor's Degree Difficulty w/ Childcare or Family Care: No Living arrangements: with family Occupation/Education: occupation Gender identity (if verbalized by the patient): Female Sexual Orientation (if Verbalized by the Patient): Straight or Heterosexual Spiritual care concerns: No Anes - Eval Final PreProcedure Day of Procedure 04/04/25 08:47 Patient weight: overweight Heart: regular rate and rhythm Lungs: clear to auscultation Airway: Mallampati scale class II Neurological: alert and oriented Last oral intake: >/= 8 hours ASA classification: III Emergent: no Anesthetic plan: proceed Anesthesia type and monitoring: general GIVS and standard monitoring Results Review: All pre-operative results and documents have been reviewed as part of the pre-operative evaluation. Informed Consent: The patient's anesthetic plan and its attendant risks and benefits were discussed with the patient/family/POA. Questions were solicited and answers provided to the satisfaction of the patient/family/POA.
--- NOTE | 2025-04-04 08:53 | P.HP_ITS ---
H&P: HPI History of Present Illness Date/Time: 04/04/25 08:53 Chief Complaint: Voss's esophagus -history of colon polyps Narrative: this patient was diagnosed with Voss's esophagus about 5 Years ago. For the past year, she has been reporting intermittent episodes of dysphagia. In addition, a colonoscopy around that time showed colon polyps. She is here for EGD and colonoscopy. 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) Left face Hyperlipidemia due to dietary fat intake Surgical History Surgical History (Reviewed 03/21/25 @ 15:18 by Martine Islas [facility]) History of Mohs surgery for squamous cell carcinoma of skin History of partial thyroidectomy Due to benign cyst of the left thyroid lobe History of tonsillectomy and adenoidectomy History of colonoscopy with polypectomy History of endometrial ablation X2 History of total hysterectomy with bilateral salpingo-oophorectomy (BSO) (~2007) Due to uterine cancer Status post bilateral mastectomy Family History Family History Grandparent Diabetes mellitus Asthma Mother , At age 85 Hyperlipidemia Heart disease Father , At age 75 Lung cancer Cancer Sibling Malignant neoplasm of prostate Family history of malignant neoplasm of ovary Hypertension Son Asthma Sibling Cancer Hypertension Social History Social History Social History: She lives home with her of 41 years. 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 She has 2 sons who are healthy. She is a lifelong nonsmoker and does not drink alcohol. Code status: Full code Surrogate decision maker: Smoking status: Never smoker Alcohol intake: never Substance use: never Substance use type: does not use Do You Feel Safe in your Home?: Yes Lack of Transportation: No Lack of Food: Never True Current Housing: I Have Housing Concerned About Future Housing: No Difficulty Paying Gas/Electric Bills: No Difficulty Paying for Meds: No Currently Unemployed: No Education: Bachelor's Degree Difficulty w/ Childcare or Family Care: No Living arrangements: with family Occupation/Education: occupation Gender identity (if verbalized by the patient): Female Sexual Orientation (if Verbalized by the Patient): Straight or Heterosexual Spiritual care concerns: No Meds Home Medications and Allergies Home Medications ?Medication ?Instructions ?Recorded ?Confirmed ?Type simvastatin 40 mg tablet 40 mg PO DAILY 03/20/20 04/04/25 History calcium carbonate 500 mg PO DAILY 03/31/21 04/04/25 History pantoprazole 40 mg tablet,delayed 40 mg PO QAM #90 tabs 10/02/21 04/04/25 Rx release cetirizine 10 mg capsule (Zyrtec) 10 mg PO DAILY 03/15/22 04/04/25 History multivitamin with minerals 1 tablet PO DAILY 04/13/22 04/04/25 History (Hair,Skin and Nails tablet) fluticasone propionate 50 1 - 2 spray intranasal Q12HR #16 07/29/22 04/04/25 Rx mcg/actuation nasal grams spray,suspension biotin 1,250 mcg-collagen 50 1 tablet PO DAILY 11/04/23 04/04/25 History mg-vit C 67.5 mg-vit E-herbal chew tablet (Alive Hair, Skin and Nails) ibuprofen 200 mg tablet 600 mg PO Q6H PRN Abdominal 11/05/23 03/23/25 History Discomfort Allergies Allergy/AdvReac Type Severity Reaction Status Date / Time ciprofloxacin Allergy Severe nausea Verified 04/04/25 07:58 vomiting codeine Allergy Severe severe Verified 04/04/25 07:58 nausea vomiting levofloxacin Allergy Severe nausea Verified 04/04/25 07:58 vomiting Penicillins Allergy Intermediate Hives / Verified 04/04/25 07:58 Red Face erythromycin base AdvReac Intermediate Nausea and Verified 04/04/25 07:58 Vomiting lactose AdvReac Intermediate STOMACH Verified 04/04/25 07:58 UPSETS Sulfa (Sulfonamide AdvReac Intermediate HIVE, Verified 04/04/25 07:58 Antibiotics) DIFFICULTY BREATHING sulfamethoxazole AdvReac Intermediate HIVE, Verified 04/04/25 07:58 DIFFICULTY BREATHING trimethoprim AdvReac Intermediate HIVE, Verified 04/04/25 07:58 DIFFICULTY BREATHING amoxicillin AdvReac Mild Hives Verified 04/04/25 07:58 clarithromycin AdvReac Mild HIVES,RASH,DIFFICULTY Verified 04/04/25 07:58 BREATHING Quinolones AdvReac Mild HIVES,RASH Verified 04/04/25 07:58 PAIN MEDS AdvReac Intermediate SEVERE Uncoded 04/04/25 07:58 NAUSEA AND VOMITING IVP DYE AdvReac Mild Rash Uncoded 04/04/25 07:58 Vital Signs Vital Signs - 24 hr 04/04/25 08:00 Temperature 97.4 F L Pulse Rate 78 Respiratory Rate 18 Blood Pressure 149/73 H Pulse Oximetry 98 Oxygen Delivery Room Air Exam Const: General: cooperative and healthy appearing Resp: Effort & Inspection: normal respiratory effort and able to speak in complete sentences Auscultation: clear to auscultation bilaterally Cardio: Rate: regular rate Rhythm: regular rhythm GI: Inspection: normal to inspection GI Palp: No No hepatosplenomegaly present Auscultation: normal bowel sounds Rectal Exam: deferred Skin: General skin exam: normal color Psych: Appearance: grossly normal Mental Status: mental status grossly nor mal Assessment and Plan Assessment and plan (1) GERD (gastroesophageal reflux disease): Code(s): K21.9 - Gastro-esophageal reflux disease without esophagitis Status: Acute Assessment and Plan: The patient is deemed a good candidate for the procedures. Consent signed. Will proceed. (2) History of colon polyps: Code(s): Z86.010 - Personal history of colon polyps Status: Acute
--- NOTE | 2025-04-04 08:57 | SUR.PREOP ---
PT REQUESTING MEDICATION FOR NAUSEA BEFORE RECEIVING PROPOFOL, DR GODWIN SAW PT AND ORDERED BENADRYL, PT REFUSING BENADRYL, PT TO DISCUSS FURTHER WITH NICKY MCKEON, BENADRYL NOT ADMINISTERED PER PT REQUEST
--- NOTE | 2025-04-04 09:04 | SUR.OPER ---
EGD [id number] COLONOSCOPY [id number]
--- NOTE | 2025-04-04 09:18 | S_PTH ---
PATIENT: Gillian Smith LOC: [facility] U#:[id number] AGE/SX: 70/F ROOM: RE04/04/[address]: Markos Duarte MD : 1955 BED: DIS: 04/04/2025 SPEC #: [id number] RECD: 04/04/25 10:38 STATUS: [place]AR REQ #: [id number] SUSANA: 04/04/25 09:[address]: Markos Duarte DEPT: [facility] Surgical RECD BY: Jocelyne Schmitz ENTERED: 04/04/25 10:39 SP TYPE: Surgical OTHR DR: Julian ChaconMD Tissues: A - Gastric Biopsy B - Gastric Biopsy Procedures: Hematoxylin and Eosin Stain Gross and Microscopic Level 4
[2025-04-04 09:34] VITALS: BP 158/84; PULSE 67; RESP 16; O2SAT 98
[2025-04-04 09:44] VITALS: BP 153/74; PULSE 64; RESP 15; O2SAT 99
[2025-04-04 09:54] VITALS: BP 151/77; PULSE 64; RESP 16; O2SAT 100
== END 2025-04-04 10:04 | disposition home or self-care (01) ==
PROVIDERS: PCP Internal Medicine; Referring Provider Nurse Practitioner Family; Visit Provider Internal Medicine Gastroenterology
PROC: 0DJ08ZZ Inspection of Upper Intestinal Tract, Via Natural or Artificial Opening Endoscopic (ICD-10-PCS; CPT 45378; principal; 2025-04-04 09:15)
DX: Z12.11 Encounter for screening for malignant neoplasm of colon (principal); K57.30 Diverticulosis of large intestine without perforation or abscess without bleeding; Z86.0100 Personal history of colon polyps, unspecified; K21.9 Gastro-esophageal reflux disease without esophagitis; K44.9 Diaphragmatic hernia without obstruction or gangrene; K22.2 Esophageal obstruction; K29.30 Chronic superficial gastritis without bleeding; K31.7 Polyp of stomach and duodenum
CPT/HCPCS: 45378; 43249; 43239; 88305; C1726; J1200; J2003; J2704; J7120

== ENCOUNTER 2025-04-09 07:52 | Outpatient (CLI) | payer OTHER, SELFPAY ==
--- NOTE | ~2025-04-09 | CT_ITS ---
Non-contrast CT scan of the Abdomen and Pelvis Clinical indication: Nausea and vomiting Technique: 2.5 mm axial scans were obtained through the abdomen and pelvis without intravenous or or al contrast. Dose reduction technique was used on this scan by utilizing automated exposure control a nd iterative reconstruction technique. The dose-length product (DLP) was 515.65 mGy-cm. Findings: Images through the lung bases reveal small hiatal hernia. There is no evidence of renal or ureteral calculi. The kidneys and the ureters are nondilated. The liver, spleen, pancreas, gallbladder, and adrenals appear normal. There are atherosclerotic calci fications of the aorta. . There is no evidence of bowel obstruction. There is sigmoid diverticulosis. Images through the pelvis were performed. There is no evidence of ascites or lymphadenopathy. Urinary bladder unremarkable. Status post hysterectomy. No pelvic mass. Impression: No acute abnormality. Small hiatal hernia. Reviewed, dictated and finalized at [facility]. Impression: No acute abnormality. Small hiatal hernia.
--- OUTSIDE RECORDS SUMMARY | 2025-04-09 07:58 | XMS_ITS | Clinical Summary ---
Author Organization [facility] Address [address] [place] [address] Care Team Providers Care Cancer Spec Name Role Phone Julian Chacon MD Primary Care Provider [phone] Source Comments [facility],non-owned Affiliates and Associated Physician Practices is amultiple site organization consisting of ambulatory clinics and hospital sitesin [place], [place], [place] and [place]. This disclosure is being madepursuant to the Care Everywhere program and may not contain all information available regarding this patient. 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
--- OUTSIDE RECORDS SUMMARY | 2025-04-09 07:59 | XMS_ITS | Patient Health Record ---
Author Organization [facility] Address [address] [place], [place] [id number] Care Team Providers Care Ticketer Name Role Phone HELADIO CABRERA Unavailable [phone] Julian Chacon Unavailable Unavailable Allergies Allergen (clinical [...] Location Date Provider Diagnosis [facility] [address] [place], [place] [id number] 02/21/2025 HELADIO CABRERA Hallux rigidus of right [...] Coverage Start Date Coverage End Date [employer] [place] [employer] [address] [place], [place] [id number] BELKIS HOLT Self - patient is the insured
--- OUTSIDE RECORDS SUMMARY | 2025-04-09 07:59 | XMS_ITS | Encounter Summary ---
Author Organization [facility] Address [address] [place] [address] Care Team Providers Care Senior Process Analyst Name Role Phone Julian Chacon MD Primary Care Provider [phone] Encounter Details Date Type Department Care Team (Late st Contact Info) Description 10/19/2018 Lab Requisition [facility] Care D[facility] Lab [address] [place] [address] Zaid Adrian MD [address] [place] [address] Social History Tobacco Use Types Packs/Day Years Used Date Smoking Tobacco: Never Assessed Comments Unknown Sex and Gender Information Value Date Recorded Sex Assigned at Not on file Legal 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 Gender Identity Not on file Sexual Orientation Not on file documented as of this encounter Plan of Treatment Not on file documented as of this encounter Procedures Procedure Name Priority Date/Time Associated Diagnosis Comments DERMATOPATHOLOGY Routine 10/18/2018 12:0 0 AM ACCREDITATION SPECIALIST documented in this encounter Results * DERMATOPATHOLOGY (10/18/2018 12:00 AM ACCREDITATION SPECIALIST) Case Report Dermatopathology Report Case: [id number] Authorizing Provider: Zaid Adrian MD Collected: 10/18/2018 12:00 AM Pathologist: Shilpa Jasso MD Received: 10/19/2018 12:18 PM Specimen: Skin, left upper lat back 9 1:18 PM [facility] Final Diagnosis Specimen A. SKIN, left upper lat back: HEMANGIOMA (D18.01) 9 1:18 PM [facility]MAT[facility] at [address]18 ACCREDITATION SPECIALIST Clinical History R/O Olmedo's vs SBCC vs telangiectasia. 9 1:18 PM [facility] Gross Description Specimen A: Received is one formalin filled container labeled with the patient's name and designated left upper lat back. The specimen consists of a shave biopsy measuring [id number]. Jar 0. 1:18 PM [facility] Microscopic Description Specimen A. SKIN, left upper lat back: In the dermis, there are dilated vascular spaces surrounded by widely spaced endothelial cells. 1:18 PM [facility] Disclaimer An external and internal positive and negative controls are appropriate for the histochemical, immunohistochemical and immunofluorescence stain(s) in this case (if any), except where stated explicitly. The performance characteristics of the stain(s) cited in this report were developed and its performance characteristic determined by the Dermatopathology Laboratory at [facility], directed by Dr. Lauren Kathleen. These tests need not be, and therefore are not, approved by the [place] Food and Drug Administration. The tests are used for clinical purposes. Billing Codes Specimen Charges Stain Charges 79262 1 9 1:18 PM [facility] Embedded Images 1:18 PM [facility] Pathology/Cytolog y TISSUE SPECIMEN FROM SKIN / Unknown 10/18/2018 10/19/2018 12:18 PM [facility] us Zaid Adrian MD LAB - PATHOLOGY/CYTOLOGY ORD ERABLES Final Result DERMATOPATHOLOGY LABORATORY [facility] - Department of Dermatology [address] [place] [address], [facility] [phone] documented in this encounter Visit Diagnoses Not on filedocumented in this encounter Care Teams Senior Process Analyst Relationship Specialty Start Date End Date Julian Chacon MD [address] [address] [address] [place] [phone] PCP - General Internal Medicine 05/07/17 documented as of this encounter
--- OUTSIDE RECORDS SUMMARY | 2025-04-09 07:59 | XMS_ITS | Data Portability ---
Author Organization [place] [facility], Main Office Address [address] [place] [address] Care Team Providers Care Trimmer And Reinforcer Name Role Phone DAHIANA CHACON Primary Care Provider [phone] Assessment No assessment recorded. Plan of Treatment Reminders Order Date Submit Date Provider Last Modified By Organization Details Last Modified Time Details Appointments None recorded. Lab lipid panel, serum 2024 025 [email or web address] [facility] - Outpatient Lab, [address] [place], [address], 5 08:19:38 CMP, serum or plasma 2024 025 [email or web address] [facility] - Outpatient Lab, [address] [place], [address], 5 08:19:38 TSH, serum or plasma 2024 025 [email or web address] [facility] Outpatient Lab, [address] [place], [address], 5 08:19:39 T4, free, serum 2024 025 [facility] Outpatient Lab, [address] [place], [address], 5 08:19:39 CBC w/ auto diff [id number] [place] [address] Outpatient Lab, [address] [place], [address], 5 08:19:39 vitamin B12, serum [email or web address] [place] [address] - Outpatient Lab, [address] [place], [address], 5 08:19:39 magnesium, serum or plasma [id number] [place] [address] Outpatient Lab, [address] [place], [address], 5 08:19:39 vitamin D, 25-hydroxy, total, serum [id number] [place] [address] Outpatient Lab, [address] [place], [address], 4 09:51:00 lipid panel, serum [email or web address] [place] [address] Outpatient Lab, [address] [place], [address], 4 09:51:00 CMP, serum or plasma [id number] [place] [address] Outpatient Lab, [address] [place], [address], 4 09:51:00 TSH, serum or plasma [id number] [place] [address] Outpatient Lab, [address] [place], [address], 4 09:51:00 T4, free, serum [id number] [place] [address] Outpatient Lab, [address] [place], [address], 4 09:51:00 CBC w/ auto diff [email or web address] [place] [address] Outpatient Lab, [address] [place], [address], 4 09:50:59 magnesium, serum or plasma 2023 024 [email or web address] [facility] - Outpatient Lab, [address] [place], [address], 4 09:50:59 vitamin B12, serum [email or web address] - Outpatient Lab, [address] [place], [address], 4 09:50:59 lipid panel, serum [email or web address] - Outpatient Lab, [address] [place], [address], 4 11:15:01 CMP, serum or plasma [id number] - Outpatient Lab, [address] [place], [address], 4 11:15:01 vitamin D, 25-hydroxy, total, serum [id number] - Outpatient Lab, [address] [place], [address], 3 12:52:16 lipid panel, serum [id number] - Outpatient Lab, [address] [place], [address], 3 12:52:15 CMP, serum or plasma [email or web address] - Outpatient Lab, [address] [place], [address], 3 12:52:15 vitamin B12, serum [email or web address] - Outpatient Lab, [address] [place], [address], 3 12:52:15 magnesium, serum or plasma [id number] - Outpatient Lab, [address] [place], [address], 3 12:52:15 CBC w/ auto diff 2022 023 [email or web address] [facility] - Outpatient Lab, [address] [place], [address], 3 12:52:15 Referral None recorded. Procedures None recorded. Surgeries None recorded. Imaging None recorded. Medication Orders atorvastati n 20 mg tablet 2023 024 [email or web address] [id number], [address], [place], [place], [id number], 4 15:13:03 Patient TargetsNo targets recorded. Patient Instructions Encounter Date Encounter Id Patient Instructions Last Modified By Organization Details Last Modified Time 08/16/2023 [id number] risk assessment* [email or web address] Not availabl e 08/16/2023 15:11:03 Personalized a [facility] Plan and Screening Recommendations Advance Directives - [...] Depression Screening: Negative I have no recommendations [email or web address] Not available 08/16/2023 14:54:09 Wellness evaluat ion [...] with voice recognition software. Occasional wrong-word or plbdn-d-lkfq substitutions may have occurred due to the inherent limitations of voice recognition software. Read the chart carefully and recognize, using context, where substitutions have occurred. [email or web address] Not available 08/16/2023 15:10:33 11/15/2023 [id number] Resolving influe veronica vasques. Clinically doing well. Continue on current Rx keep her scheduled appointment in February of 2024. Portions of the record may have been created with voice recognition software. Occasional wrong-word or meebe-w-byqs substitutions may have occurred due to the inherent limitations of voice recognition software. Read the chart carefully and recognize, using context, where substitutions have occurred. Keep Appt: Tue 03:00 PM Benjamin [email or web address] Not available 11/15/2023 14:39:20 02/14/2024 [id number] Follow-up hyperlipidemia and GERD clinically stable. Did [...] with voice recognition software. Occasional wrong-word or jfddr-c-xiiy substitutions may have occurred due to the inherent limitations of voice recognition software. Read the chart carefully and recognize, using context, where substitutions have occurred. [email or web address] Not available 02/14/2024 16:42:26 08/14/2024 [id number] Follow-up GERD, hyperlipidemia, history of renal calculi. [...] with voice recognition software. Occasional wrong-word or nozcq-t-djrq substitutions may have occurred due to the inherent limitations of voice recognition software. Read the chart carefully and recognize, using context, where substitutions have occurred. [email or web address] Not available 08/14/2024 17:17:24 02/12/2025 [id number] Follow-up for GE RD, hyperlipidemia, malignant tumor [...] with voice recognition software. Occasional wrong-word or lqnjc-v-webg substitutions may have occurred due to the inherent limitations of voice recognition software. Read the chart carefully and recognize, using context, where substitutions may have occurred. Created: Dahiana Chacon M.D. 02.12.2025 04:20 PM [email or web address] [id number] Not available 02/12/2025 17:21:01 Reason for Referral None Reported. Results Created Date Observation Date Name Description Value Unit Range Abnormal Flag Note LastModifiedBy Organization Detail LastModifiedTime 11/04/19 24 11/04/2023 XR, chest , 2 view No observ ation record ed. [address], [place], [address], 11/04/2023 15:49:02 11/04/19 24 11/04/2023 CT, brain , w/o contr ast No observ ation record ed. [place] [id number] [facility] [address], [place], [address], 11/04/2023 15:49:43 11/04/19 24 11/04/2023 CT, cervi jam spine , w/o contr ast No observ ation record ed. [address], [place], [address], 11/04/2023 15:50:22 11/06/19 24 11/06/2023 CT, brain , w/o contr ast No observ ation record ed. [address], [place], [address], 11/07/2023 06:54:03 11/07/19 24 11/07/2023 XR, hip, bilat eral No observ ation record ed. [address], [place], [address], 11/07/2023 10:21:38 11/07/19 24 11/07/2023 MRI, cervi jam spine , w/o contr ast No observ ation record ed. [address], [place], [address], 11/07/2023 16:55:54 11/08/19 24 11/08/2023 XR, chest , 2 view No observ ation record ed. [address], [place], [address], 11/08/2023 11:47:17 11/08/19 24 11/08/2023 US, echoc ardio gram No observ ation record ed. [address], [place], [address], 11/08/2023 17:20:24 11/09/19 24 11/06/2023 MRI, brain + brain stem, w/o contr ast No observ ation record ed. [place] [id number] Not Available 2023 12:36:01 11/10/19 24 11/10/2023 US, abdom en No observ ation record ed. [address], [place], [address], 11/10/2023 17:12:13 Result Notes None recorded. Problems Name Problem SNOMED Code Status Onset Date Resolution Date Notes Provider Name and Address Organization Details Recorded Time Irritable bowel syndrome 63497667 Active Not Available [facility] 3 14:13:50 Nausea and vomiting 58705690 Active 2021 Not Available [facility] 3 14:13:50 Hemangioma of intra-abdomin al structure 043205108 Active Not Available [facility] 3 14:13:50 Gastroesophag eal reflux disease 946392814 Active 2018 Not Available [facility] 3 14:13:50 Multinodular goiter 884947932 Active Not Available [facility] 3 14:13:50 Pure hypercholeste rolemia 051024003 Active Not Available [facility] 3 14:13:50 Vitamin D deficiency 56871289 Active 2021 Not Available [facility] 3 14:13:50 History of malignant neoplasm of breast 412419141 Active Not Available [facility] 3 14:13:50 Allergic rhinitis 70768388 Active 2021 Not Available [facility] 3 14:13:50 Otitis media 60804797 Active 2021 Not Available [facility] 3 14:13:50 Malignant melanoma of skin of face 54633403 Active Not Available [facility] 3 14:13:50 Kidney stone 40829578 Active Not Available [facility] 3 14:13:51 Gastroesophag eal reflux disease without esophagitis 631295247 Active 2022 Rekha Queen CMA null, [place] [facility] [employer] 3 15:23:43 Contact dermatitis caused by urushiol from Eastern poison dalila 748456625 Active 2022 Dahiana Chacon MD [address], [facility] [address], [place], [address] , [place] [facility] 3 12:31:56 Itching of skin 069047803 Active 2022 Rekha Queen CMA null, [place] [facility] 3 13:50:48 Influenza caused by Influenza A virus 144210424 Active 2023 Dahiana Chacon MD [address], [facility] [address], [place], [address] , [facility] [employer] [facility] 4 14:36:50 Acute urinary tract infection 713285217 Active 2023 Dahiana Chacon MD [address], [facility] [address], [place], [address] , [facility] [employer] [facility] 4 12:28:30 Eruption 904792547 Active 2024 Rekha Queen CMA null, [facility] [employer] [facility] 5 12:29:10 Problem Notes None recorded. Medical Equipment None Reported. Allergies Allergen ID Allergen Name Allergen Category Reaction Reaction Severity Criticality Documentation Date Start Date Code Code System Note Provider Name and Address Organization Details Recorded Time 26826 Substance with sulfonami de structure and antibacte rial mechanism of action (substanc e) medicatio n rash Not available Not available 12/01/2022 69534 8003 SNOMED Not Available [facility] 3 14:16:47 50145 Product containin g penicilli n (product) medicatio n rash Not available Not available 12/01/2022 62665 8001 SNOMED Not Available [facility] 3 14:16:47 87517 Cipro medicatio n dizziness Not available Not available 12/01/202277975 3 RxNorm Not Available [facility] 3 14:16:47 69224 Biaxin medicatio n rash Not available Not available 12/01/2022 71422 9 RxNorm Not Available [facility] 3 14:16:47 35957 Augmentin medicatio n rash Not available Not available 12/01/2022 18520 2 RxNorm Not Available [facility] 3 14:16:47 Medications Name Sig Start [...] Available Not Available No t Available Transderm-S endoscope technician 1 mg over 3 days transdermal patch [...] completed Not Available Not Available Not Available Sabula-3 1000mg one three times a day 01/29 [...] in Arterial blood by Pulse oximetry Systolic And Diastolic Provider Name and Address Organization Details Last Updated DateTime 4 160.02 cm 28.9 kg/m2 91154.5 6 g 85 /min 97.9 [degF] 98 % 98 % 130/70 mm[Hg] JEANNA Causey [facility] [employer] [facility] 4 14:27:22 Date Recorded Body height Body mass index (BMI) Body weight Heart rate Body temperature Oxygen saturation Oxygen saturation in Arterial blood by Pulse oximetry Systolic And Diastolic Provider Name and Address Organization Details Last Updated DateTime 5 160.02 cm 29.3 kg/m2 01453.5 4 g 91 /min 97 [degF] 97 % 97 % 120/74 mm[Hg] Shruthi [employer] [facility] [employer] [facility] 5 17:08:25 Date Recorded Body height Body mass index (BMI) Body weight Heart rate Body temperature Oxygen saturation Oxygen saturation in Arterial blood by Pulse oximetry Systolic And Diastolic Provider Name and Address Organization Details Last Updated DateTime 4 160.02 cm 28.9 kg/m2 67431.5 6 g 98 /min 97 [degF] 96 % 96 % 122/64 mm[Hg] Shruthi [employer] [facility] [employer] [facility] 4 16:08:07 Date Recorded Body height Body mass index (BMI) Body weight Heart rate Body temperature Oxygen saturation Oxygen saturation in Arterial blood by Pulse oximetry Systolic And Diastolic Provider Name and Address Organization Details Last Updated DateTime 4 160.02 cm 28.3 kg/m2 04652.7 8 g 85 /min 97 [degF] 98 % 98 % 130/72 mm[Hg] JEANNA Causey [place] [employer] [facility] [employer] [facility] 4 16:59:46 Date Recorded Body height Body mass index (BMI) Body weight Heart rate Body temperature Oxygen saturation Oxygen saturation in Arterial blood by Pulse oximetry Systolic And Diastolic Provider Name and Address Organization Details Last Updated DateTime 3 160.02 cm 29.1 kg/m2 10245.1 5 g 107 /min 97 [degF] 94 % 94 % 134/62 mm[Hg] Shruthi Duran [place] [facility] [place] [employer] [facility] 3 14:46:06 Social History None recorded. Functional [...] GLAUCOMA N FOOT PROBLEM N DIVERTICULITIS N SLEEP APNEA N CHICKENPOX N INFECTIOUS DISEASE N PROSTATE N HEART ARRHYTHMIA N INSOMNIA N HIGH CHOLESTEROL / HYPERLIPIDEMIA Y EYE PROBLEMS N HYPERTHYROIDISM N EDEMA N CHRONIC PAIN SYNDROME N HYPOTHYROIDISM N CAROTID BLOCKAGE N CONSTIPATION N BACK / NECK PROBLEMS N HAVE YOU BEEN HOSPITALIZED OR SEEN IN [facility] IN THE PAST YEAR ? N ATHEROSCLEROSIS N BREAST PROBLEMS Y DIALYSIS N ECZEMA N OSTEOPOROSIS N ARTHRITIS N NO SIGNIFICANT PAST MEDICAL HISTORY N APPENDICITIS N DIABETES, TYPE N BAD TEETH N ENT N HEARTBURN / REFLUX N AUTISM SPECTRUM DISORDER (ASD) N HEPATITIS / LIVER DISEASE N GOUT N SLEEP DISORDER N ALZHEIMER'S DISEASE N Brain Problems N DEMENTIA N HERPES N SEIZURES/EPILEPSY N HEADACHES/MIGRAINES N VASCULAR DISEASE N PACEMAKER N Blood Disorder N DIZZINESS N HEART DISEASE/HEART PROBLEMS N KIDNEY DISEASE N MULTIPLE SCLEROSIS N CANCER: SPECIFY N CARDIAC ARRHYTHMIA N ATRIAL FIBRILLATION N Gall Stones N PULMONARY EMBOLISM N AUTOIMMUNE DISEASE N Gynecological HistoryNo gynecological history recorded. Obstetrics History GPAL:G 0 P 0 0 0 0 Past Encounters Encounter ID Performer Location Encounter Start Date Encounter Closed Date Diagnosis/Indication Diagnosis SNOMED-CT Code Diagnosis ICD10 Code Diagnosis Note [id number] Dahiana Chacon MD [facility] Internal Med [place] [address] [place] [address] y , [place] [address] 01/16/2021 00:00:00 01/16/2021 17:16:05 [id number] Dahiana Chacon MD [facility] Internal Med [place] [address] [place] [address] [place] [address] 07/24/2021 00:00:00 07/24/2021 17:10:56 [id number] Dahiana Chacon MD [facility] Internal Med [place] [address] [place] [address] [place] [address] 01/29/2022 00:00:00 01/29/2022 16:58:05 [id number] Dahiana Chacon MD [facility] Internal Med [place] [address] [place] [address] y , [place] [address] 07/30/2022 00:00:00 07/30/2022 17:24:56 [id number] Dahiana Chacon MD [facility] Internal Med [place] [address] [place] [address] [place] [address] 01/28/2023 16:24:42 01/28/2023 17:00:25 Gastroesophageal reflux disease 398421181 K21.9 History of malignant neoplasm of breast 066970345 Z85.3 Pure hypercholesterolemia 951182320 E78.00 [id number] Dahiana Chacon MD [facility] Internal Med [place] [address] [place] [address] [place] [address] 08/16/2023 14:36:22 08/16/2023 15:14:28 Adult health examination 544427002 Z00.00 Depression screening 171 326746 Z13.31 Gastroesop hageal reflux disease 681436355 K21.9 History of malignant neoplasm of breast 125881804 Z85.3 Screening for cardiovascular system disease 379944268 Z13.6 Vitamin D deficiency 347 58461 E55.9 [id number] Dahiana Chacon MD [facility] Internal Med [facility] [address] [place] [address] 11/15/2023 14:18:07 11/15/2023 14:50:14 Influenza caused by Influenza A virus 881008505 J09.X2 [id number] Dahiana Chacon MD [facility] Internal Med [address] [place] [address] 02/14/2024 15:44:52 02/14/2024 17:03:33 Pure hypercholesterolemia 181517758 E78.00 Gastroesop hageal reflux disease without esophagitis 136543808 K21.9 [id number] Dahiana Chacon MD [facility] Internal Med [address] [place] [address] 08/14/2024 16:52:21 08/14/2024 17:26:57 Gastroesophageal reflux disease 661248425 K21.9 Pure hypercholesterolemia 652675634 E78.00 Kidney stone 95922783 N2 0.0 Vitamin D deficiency 347 37755 E55.9 [id number] Dahiana Chacon MD [facility] Internal Med [facility] [address] [facility] [address] [place] [address] 02/12/2025 16:45:44 02/12/2025 17:23:24 Gastroesophageal reflux disease 316494918 K21.9 Pure hypercholesterolemia 110881473 E78.00 History of malignant neoplasm of breast 241141000 Z85.3 Health Concerns Section Related Observation LastModified by Organization Detai ls LastModified Time None Recorded Concern Status LastModified by Organization Details LastModified Time None Recorded Advance Directives Directive None Recorded Payers Insurance Date Sequence Insurance Name Policy Number Policy Martin Covered Member ID Martin Member ID Guarantor Name 02/18/2025 1 [employer] [id number] Serena Smith [id number] Gillian Smith Notes Date Note Type Note Provider Name and Address Organization Details Recorded Time 08/16/20 23 text/htm l Patient Name: Gillian Sanz Of Service: Tuesday ( 08.16.2023 ): 1955 [...] Systemic Symptoms:none Medication Reconciliation: from medication list. Iwzmnnmhvok25/03/2023: Ultrasound breast demonstrated no evidence any mass [...] Surgery, Septoplasty, TonsillectomyPreventative Testing Confirmed by Our Uhedoyx6508/31/2022 DEXA SCAN09/04/2020 COLONOSCOPY (3 YEARS) UPPER DVYLDETRK14/26/2007 CEA08/29/2006 MAMMOGRAM 08/29/2007Social HistorySOCIAL HISTORY:Marital Status: MarriedDoes [...] [facility] of Lung Dahiana Chacon MD [address] [facility], [facility] [address], [place], [address], [place] [facility] 08/16/2023 15:11:07 02/14/20 24 text/htm l Patient [...] Systemic Symptoms:none Medication Reconciliation: from medication list. Wosazenvxdz02/03/2023: Ultrasound breast demonstrated no evidence any mass [...] Drug Reactions ReviewedBiaxin RashPenicillin RashCipro Vertigo Surgical Iolvrhs0366-38 Melanoma Wdry5146-70 D&T6357-18 Thyroid Tewifju0406-47 Vsladxvzuqq0652-64 Tonsillectomy Preventative Kemxlgt3308/31/2022 DEXA SCAN09/04/2020 COLONOSCOPY (3 YEARS) UPPER SRHFZHCLN16/26/2007 CEA08/29/2006 MAMMOGRAM 08/29/2007 Social HistorySOCIAL HISTORY:Marital Status: [...] Ca of Lung Dahiana Chacon MD [address] [facility], [facility] [address], [place], [address], [facility] [employer] [facility] 02/14/2024 16:43:06 08/14/20 24 text/htm l Patient [...] Systemic Symptoms:none Medication Reconciliation: from medication list. Htcqnllgawx47/03/2023: Ultrasound breast demonstrated no evidence any mass [...] Drug Reactions ReviewedBiaxin RashPenicillin RashCipro Vertigo Surgical Fvshzkn2862-62 Melanoma Jsdu4639-11 D&X5253-24 Thyroid Thsiozs1404-41 Ckkdrzvumtu6988-10 Tonsillectomy Preventative Testing( ) 08/31/2022 DEXA Scan [...] Ca of Lung Dahiana Chacon MD [address] [facility], [facility] [address], [place], [address], [place] [facility] 08/14/2024 17:17:52 02/13/20 25 text/htm l Patient [...] Systemic Symptoms:none Medication Reconciliation: from medication list. Bzxwynlmvyx98/03/2023: Ultrasound breast demonstrated no evidence any mass [...] Drug Reactions ReviewedBiaxin RashPenicillin RashCipro Vertigo Surgical Kfddykg0374-51 Melanoma Uraz5512-09 D&H5378-36 Thyroid Ihqlufr2544-52 Ncvjpkmgmns4474-82 Tonsillectomy Preventative TestingPreventative Testing Discussed and Scheduled [...] Ca of Lung Dahiana Chacon MD [address] [facility] [place] [address], [place], [address], [facility] [employer] [facility] 02/12/2025 17:21:17 OBGyn Episode No OBEpisode recorded.
== END 2025-04-09 07:53 | disposition home or self-care (01) ==
PROVIDERS: PCP Internal Medicine; Visit Provider Nurse Practitioner Family
DX: K44.9 Diaphragmatic hernia without obstruction or gangrene (principal); R11.2 Nausea with vomiting, unspecified; R10.9 Unspecified abdominal pain; R19.7 Diarrhea, unspecified
CPT/HCPCS: 74176

== ENCOUNTER 2025-05-03 07:46 | Outpatient (CLI) | payer OTHER, SELFPAY ==
--- NOTE | ~2025-05-03 | NM_ITS ---
EXAMINATION: NM_HEPATWP_NM DATE: 05/03/2025 09:49 INDICATION: Nausea, vomiting and abdominal pain COMPARISON: None. TECHNIQUE: 4.8 mCi Tc-99m mebrofenin (Choletec) was administered intravenously. Scintigraphic images of the abdomen were obtained for one hour. 1.4 mcg sincalide (Kinevac) was administered by slow intr avenous infusion, and imaging was continued for 30 minutes. Gallbladder ejection fraction was calcula suzanna by the technologist. FINDINGS: There is normal clearance of radiotracer from the blood pool. There is homogeneous tracer uptake by t he liver. Activity progresses to the gallbladder and bowel. The gallbladder ejection fraction (GBEF) is 68% (normal 10-90%, but most patient with gallbladder dysfunction have GBEF < 35% which does over lap with the normal range). IMPRESSION: 1. Normal hepatobiliary scan. Reviewed, dictated and finalized at location A.
--- OUTSIDE RECORDS SUMMARY | 2025-05-03 07:49 | XMS_ITS | Encounter Summary ---
Author Organization [facility] Address [address] [address] Care Team Providers Care Family Nurse Practitioner Name Role Phone Julian Chacon MD Primary Care Provider [phone] Encounter Details Date Type Department Care Team (Late st Contact Info) Description 10/19/2018 Lab Requisition [facility] Care DermPath Lab [address] [facility] [address] [place] [address] Zaid Adrian MD [address] [place] [address] Social History Tobacco Use Types Packs/Day Years Used Date Smoking Tobacco: Never Assessed Comments Unknown Sex and Gender Information Value Date Recorded Sex Assigned at Not on file 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 Gender Identity Not on file Sexual Orientation Not on file documented as of this encounter Plan of Treatment Not on file documented as of this encounter Procedures Procedure Name Priority Date/Time Associated Diagnosis Comments DERMATOPATHOLOGY Routine 10/18/2018 12:0 0 AM 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 SKIN, left upper lat back: HEMANGIOMA (D18.01) 9 1:18 PM [facility] DERMATOPATHOLOGY LABORATORY at [address] INDUSTRIAL ENGINEERING PROFESSOR Clinical History R/O Olmedo's vs SBCC vs telangiectasia. 9 1:18 PM [facility] DERMATOPATHOLOGY [facility]ORATORY Gross Description Specimen A: Received is one formalin filled container labeled with the patient's name and designated left upper lat back. The specimen consists of a shave biopsy measuring 3y4r2kg. Jar 0. 1:18 PM [facility] DERMATOPATHOLOGY LABORATORY Microscopic Description Specimen A. SKIN, left upper lat back: In the dermis, there are dilated vascular spaces surrounded by widely spaced endothelial cells. 1:18 PM [facility] DERMATOPATHOLOGY LABORATORY Disclaimer An external [...] purposes. Billing Codes Specimen Charges Stain Charges 21394 1 9 1:18 PM [facility] DERMATOPATHOLOGY LABORATORY Embedded Images 1:18 PM [facility] DERMATOPATHOLOGY LABORATORY Pathology/Cytolog y TISSUE SPECIMEN FROM SKIN / Unknown 10/18/2018 10/19/2018 12:18 PM [facility] us Zaid Adrian MD LAB - PATHOLOGY/CYTOLOGY ORD ERABLES Final Result DERMATOPATHOLOGY LABORATORY [facility] - Department of Dermatology [address] [place] [address], [facility] [phone] documented in this encounter Visit Diagnoses Not on filedocumented in this encounter Care Teams Family Nurse Practitioner Relationship Specialty Start Date End Date Julian Chacon MD [address] [address] [address] [place] [id number] PCP - General Internal Medicine 05/07/17 documented as of this encounter
--- OUTSIDE RECORDS SUMMARY | 2025-05-03 07:49 | XMS_ITS | Patient Health Record ---
Author Organization [facility] Address [address] [place], [place] [id number] Care Team Providers Care Outbound Sales Executive Name Role Phone HELADIO CABRERA Unavailable [phone] Julian Chacon Unavailable Unavailable Allergies Allergen (clinical [...] Location Date Provider Diagnosis [facility] [address] [place], [place] [id number] 02/21/2025 HELADIO CABRERA Hallux rigidus of right [...] Coverage Start Date Coverage End Date [employer] [address] [place], [place] [id number] BELKIS HOLT Self - patient is the insured
--- OUTSIDE RECORDS SUMMARY | 2025-05-03 07:49 | XMS_ITS | Clinical Summary ---
Author Organization [facility] Address [address] [facility] [place] [address] Care Team Providers Care Police Service Technician Name Role Phone Julian Chacon MD Primary Care Provider [phone] Source Comments [facility],non-owned Affiliates and Associated [facility] is amultiple site organization consisting of ambulatory clinics and hospital sitesin [place], [place], [place]. This disclosure is being madepursuant to the Care Everywhere program and may not contain all information available regarding this patient. 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 Gender Identity Not on file Sexual Orientation [...] patient's age to complete [place] [address] [facility] [place] [address] SELF PAY NO INSURANCE Member Subscriber Plan / Payer (Ef fective for All Dates) Name:Belkis Smith Member ID:Not on file Relation to Subscriber:Not on file Name:BELKIS SMITH Subscriber ID:Not on file (Home) Address: [address] [place] [id number] Payer ID:Not on file Group ID:Not on file Type:Self Pay Address: [place], [place] [facility] Care Teams Police Service Technician Relationship Specialty Start Date End Date Julian Chacon MD [address] [place] [address] [address] [place] [address] PCP - General Internal Medicine 05/07/17
== END 2025-05-03 07:47 | disposition home or self-care (01) ==
PROVIDERS: PCP Internal Medicine; Visit Provider Nurse Practitioner Family
DX: R11.2 Nausea with vomiting, unspecified (principal); R10.9 Unspecified abdominal pain
CPT/HCPCS: 78227; A9537; J2805

== ENCOUNTER 2025-10-01 10:50 | Outpatient (CLI) | payer OTHER, MEDICARE, SELFPAY ==
--- OUTSIDE RECORDS SUMMARY | 2025-02-21 09:40 | XMS_ITS ---
Author Organization [facility] Address [address] [place], [place] [phone] Care Team Providers Care Patient Transition Specialist Name Role Phone FIORDALIZAJENNA CARRIZALESIC Unavailable [phone] Julian Chacon Unavailable Unavailable Allergies Allergen (clinical drug ingredient) Drug/Non Drug Allergy documented on EMR Reaction Allergy Type Onset Date Status Iodine Unknown Drug Allergy 07/21/2022 active REASON FOR VISIT New Orthotics Medications Medication SIG (Take, Route, Frequency, Duration) Notes Start Date End Date Status Hyoscyamine Sulfate 0.125 MG Tablet TAKE 1 TABLET BY MOUTH FOUR TIMES DAILY NEEDED FOR DYSPEPSIA Oral; Duration: 30 Days Active Social History Social History Additional Details Category Social Info Options Details Migrated Social History Migrated Social History Smoking Status : Never used tobacco , History of tobacco use : Vital Signs Height 64.00 in 02/21/2025 Weight 162 lbs 02/21/2025 BMI 27.8 kg/m2 02/21/2025 Height-cm 162.56 cm 02/21/2025 Weight-kg 73.48 kg 02/21/2025 Encounters Encounter Location Date Provider Diagnosis [facility] [place] [address] [place], [place] [id number] 02/21/2025 HELADIO ROBLEDO Hallux rigidus of right foot M20.21 and Pain in right foot M79.671 Assessments Encounter Date Diagnosis (ICD Code) Assessment Notes Treatment Notes Treatment Clinical Notes Section Notes 02/21/2025 Hallux rigidus of right foot (ICD-10 - M20.21) 02/21/2025 Pain in right foot (ICD-10 - M79.671) 02/21/2025 Other I advised the patient that no further treatment is necessary at this time. If the condition should worsen they should call the office. Plan Of Treatment Treatment Notes Assessment Notes Other I advised the patien t that no further treatment is necessary at this time. If the condition should worsen they should call the office. History and Physical Notes * HPI (History of Present Illness) Category Sub-Category Detail Notes Category Not es HPI New Complaint Established edd ent presents with a new complaint. Patient states she has orthotics she got in 2021. They are still helping, but she would like to have them looked at because she is having a little soreness and was told they would eventually need replaced. Patient denies any injury. MA: sea Examination Category Sub-Category Detail Notes Category Not es Constitutional Constitutional The patient is a wake, alert, well developed, well groomed and well nourished. Dermatologic Skin findings: Skin is warm, dr y, supple with no breaks in the skin. Nail pathology: Nails 1-5 bilateral are normal in appearance and thickness. No discoloration. Ulcer: There is no evidence of ulceration noted at this time Hyperkeratotic Skin Lesion There is no e vidence of hyperkeratosis Musculoskeletal Muscle Strength Muscle strength is 5/5 in regards to dorsiflexion, plantarflexion, inversion, and eversion in bilateral lower extremities. Pain on palpation There is no pain on palpation 1st MPJ The range of motion is absent and painful at end range of dorsiflexion Foot Structure The foot structure i s noted to be normal bilaterally Gait There is normal gait noted Neurologic Muscle power: 5/5 bilaterally Gross sensation Gross sensation is i ntact to light touch. Vascular Dorsalis pedis pulse: 2/4 bilateral Posterior tibial pulse: 2/4 bilaterally Capillary refill: less than 3 seconds bilaterally Temperature gradient: within normal limi ts Progress Notes * BELKIS HOLTDOB:1954 ([age] yo F)Acc No.[id number]:02/21/2025 Patient: BELKIS CHOPRA Provider: Kiana Robledo DPM :1954 A ge:70 Y S ex:Female Date:02/21/2025 Address:[address] [place] [address] , [id number] Subjective: * Chief Complaints: * N ew Orthotics * HPI: H PI: New Complaint E stablished patient presents with a new complaint. Patient states she has orthotics she got in 2021. They are still helping, but she would like to have them looked at because she is having a little soreness and was told they would eventually need replaced. Patient denies any injury. MA: sea. * Family History: F ather: PRN - Father: :: Cancer,,known absent , :: Arthritis,,known absent . M other: PRN - Mother: :: Heart Disease < 55 yrs,,known absent . B rother: SIB - Brother: :: Cancer,,known absent . S ister: SIB - Sister: :: Cancer,,known absent , :: Fibromyalgia,,known absent , :: Neuropathy,,known absent . F amily History Verified.. * Social History: M igrated Social History: M igrated Social History: Smoking Status : Never used tobacco , History of tobacco use :. S ocial History Verified. * Medications: T akingHyoscyamine Sulfate 0.125 MG Tablet TAKE 1 TABLET BY MOUTH FOUR TIMES DAILY NEEDED FOR DYSPEPSIA Oral Medication List reviewed and reconciled with the patientTaking Hyoscyamine Sulfate 0.125 MG Tablet TAKE 1 TABLET BY MOUTH FOUR TIMES DAILY NEEDED FOR DYSPEPSIA Oral Medication List reviewed and reconciled with the patient * Allergies: I odine: Allergy - Onset Date 07/21/2022yesAllergies Verified. Objective: * Vitals: W t:162lbs, Wt-k.48 kg, Ht: 64.00 in, Ht-cm: 162.56 cm, BMI:27.8Index, Body Surface Area: 1.82. * Examination: C onstitutional: Constitutional T he patient is awake, alert, well developed, well groomed and well nourished. . D ermatologic: Skin findings: S kin is warm, dry, supple with no breaks in the skin. . Nail pathology: N ails 1-5 bilateral are normal in appearance and thickness. No discoloration. . Ulcer: T here is no evidence of ulceration noted at this time . Hyperkeratotic Skin Lesion T here is no evidence of hyperkeratosis . M usculoskeletal: Muscle Strength M uscle strength is 5/5 in regards to dorsiflexion, plantarflexion, inversion, and eversion in bilateral lower extremities. . Foot Structure T he foot structure is noted to be normal bilaterally . Pain on palpation T here is no pain on palpation . 1st MPJ T he range of motion is absent and painful at end range of dorsiflexion . Gait T here is normal gait noted . N eurologic: Muscle power: 5 /5 bilaterally . Gross sensation G ross sensation is intact to light touch. . V ascular: Dorsalis pedis pulse: 2 /4 bilateral . Posterior tibial pulse: 2 /4 bilaterally . Capillary refill: l ess than 3 seconds bilaterally . Temperature gradient: w ithin normal limits . ? Assessment: * Assessment: 1. H allux rigidus of right foot - M20.21 (Primary) 2 . P ain in right foot - M79.671 Plan: * Treatment: * Preventive Medicine: Screenings: F all risk screening Fall Risk Assessment: N o falls in the past year Billing Information: * Visit Code: 13671 Office Visit, Est Pt., Level 3. * Electronic signature of HELADIO ROBLEDO DPM on 10/01/2025 at 11:32 AM UNION ORGANIZER Sign off status: Pending * Provider: Kiana Robledo DPM Date: 0 02/21/2025 Generated for Meek adair/Jose/Juanitting on: 1 11:32 AM UNION ORGANIZER
--- NOTE | ~2025-10-01 | DEXA_ITS ---
Bone Density Report Name: BELKIS HOLT Age: 70 Sex: Female Ethnicity: White Date of : 1955 Indication: postmenopausal; screening for osteoporosis; inflammatory bowel disease; cancer; asthma or emphysema; hysterectomy; Referring Provider: MARGARET MIRELES Study: Bone densitometry was performed. Exam Date: October 01, 2025 Accession number: [id number] Bone Density: Region BMD T-score Z-score Classification AP Spine(L1-L4) 1.091 0.4 2.7 Normal Femoral Neck (Left) 0.651 -1.8 0.2 Osteopenia Total Hip (Left) 0.897 -0.4 1.3 Normal Femoral Neck (Right) 0.687 -1.5 0.5 Osteopenia Total Hip (Right) 0.893 -0.4 1.2 Normal Total Hip Mean 0.895 -0.4 1.3 Normal World Health Organization criteria for BMD impression classify patients as: Normal (T-score at or above -1.0), Osteopenia (T-score between -1.0 and -2.5), or Osteoporosis (T-score at or below -2.5). 10-year Fracture Risk(1): Major Osteoporotic Fracture 11% Hip Fracture 2.1% Reported Risk Factors: [place] (), Neck BMD=0.651, BMI=28.6 (1) FRAX(R) Version 3.08. Fracture probability calculated for an untreated patient. Fracture probability may be lower if the patient has received treatment. Previous Exams: Region Exam Age BMD T-score BMD Change BMD Change Date g/cm2 vs Baseline vs Previous AP Spine (L1-L4) 10/01/2025 70 1.091 0.4 -0.062 (-5.4%) -0.062 (-5.4%) 08/31/2022 67 1.153 1.0 Total Hip(Left) 10/01/2025 70 0.897 -0.4 -0.049 (-5.2%) -0.049 (-5.2%) 08/31/2022 67 0.946 0.0 Total Hip(Right) 10/01/2025 70 0.893 -0.4 -0.022 (-2.4%) -0.022 (-2.4%) 08/31/2022 67 0.916 -0.2 *Denotes significance at 95% confidence level, LSC for AP Spine = 0.022 g/cm2, LSC for Total Hip = 0.027 g/cm2 Clinical Information Provided by Patient: Has used the following medications: Vitamin D, Calcium Has the following medical conditions: Asthma or Emphysema, Cancer, Inflammatory bowel diseases, Hysterectomy, Uterine,breast,and melanoma Patient maximum height was 64 Menopause Age: 52 Does not regularly consume dairy products Onset of menses at age 9 Number of children 2 Impression: The patient has low bone mass, based on the Left Femoral Neck T-score. The patient has an estimated ten-year risk of hip fracture of 2.1% and an estimated ten-year risk of major fracture of 11%, based on the WHO FRAX algorithm. The BMD for the AP Spine (L1-L4) decreased, changing by -5.4% since the last DXA exam. The BMD for the Total Hip(Left) decreased, changing by -5.2% since the last DXA exam. Discussion: BONE DENSITY IS LOW AT ONE OR MORE SKELETAL SITES. This patient's lowest T-score is low at one or more skeletal sites. It meets the World Health Organization's (WHO) criteria for ?low bone mass? (T-score between -1.0 and -2.5). The patient's 10-year risk of fracture as calculated by FRAX is less than the threshold where pharmacological therapy is recommended by the National Osteoporosis Foundation (NOF). However, all treatment decisions require clinical judgment and consideration of individual patient factors, including patient preferences, comorbidities, previous drug use, risk factors not captured in the FRAX model (e.g., frailty, falls, vitamin D deficiency, increased bone turnover, interval significant decline in bone density) and possible under or overestimation of fracture risk by FRAX. The patient should follow a healthful lifestyle (good nutrition with adequate calcium and vitamin D, and appropriate weight-bearing exercise). Follow-Up: Consider repeating this study in 2 years to reassess this patient's status, or sooner if there is some new clinical indication. Reported by: CHAITANYA on 10/01/2025 11:33:00 AM. Reviewed, dictated and finalized at location A.
--- OUTSIDE RECORDS SUMMARY | 2025-10-01 11:33 | XMS_ITS | Patient Health Record ---
Author Organization [facility] Address [address] [place], [place] [id number] Care Team Providers Care Tax Investigator Name Role Phone FIORDALIZAHELADIO CARRIZALES Unavailable [phone] Julian Chacon Unavailable Unavailable Allergies Allergen (clinical [...] History of tobacco use : Vital Signs Height-cm 162.56 cm 02/21/2025 Weight-kg 73.48 kg 02/21/2025 Height 64.00 in 02/21/2025 Weight 162 lbs 02/21/2025 BMI 27.8 kg/m2 02/21/2025 Encounters Encounter Location Date Provider Diagnosis [facility] [address] [place], [place] [id number] 02/21/2025 HELADIO CABRERA Hallux rigidus of right [...] Insured Coverage Start Date Coverage End Date [employer] [address] [place], [place] [id number] BELKIS HOLT Self - patient is the insured
== END 2025-10-01 10:51 | disposition home or self-care (01) ==
PROVIDERS: PCP Internal Medicine; Visit Provider Nurse Practitioner Obstetrics & Gynecology
DX: M85.89 Other specified disorders of bone density and structure, multiple sites (principal); Z78.0 Asymptomatic menopausal state
CPT/HCPCS: 77080